=== PATIENT | female | born 1955 | race Caucasian/White ===

== ENCOUNTER → 2023-06-08 | Outpatient (REF) | payer MEDICARE, SELFPAY ==
[2023-06-08 09:13] LABS: Absolute Lymphocyte Count 2.61 X10^3/uL (0.83-4.51); Absolute Neutrophil Count 2.3 X10^3/uL (2.0-7.7); Basophil# 0.09 X10^3/uL; Basophil% 1.5 % (0-1); Eosinophil# 0.24 X10^3/uL; Hematocrit 30.8 % (37-47); Hemoglobin 9.2 g/dL (12.0-15.0); Lymphocyte # 2.61 X10^3/ul (0.83-4.51); Lymphocyte % 43.8 % (19-41); Mean Corp Hgb Conc 29.9 g/dL (32-36); Mean Corpuscular Hgb 26.6 pg (27.0-32.0); Monocyte# 0.74 X10^3/uL; Monocyte% 12.4 % (0-10); NRBC Flagged by Analyzer 0 % (0-5); Neutrophil # 2.25 X10^3/uL (2.7-7.7); Neutrophil % 37.8 % (47-70); Platelet Count 461 K/mm3 (150-450); RBC Distribution Width CV 18.2 % (11.6-14.6); RBC Distribution Width SD 59.3 fl (35.1-43.9); Red Blood Count 3.46 M/mm3 (4.2-5.4)
[2023-06-08 09:37] LABS: ALB/GLOB Ratio 0.8 RATIO (0.9-2.4); AST(SGOT) 39 U/L (15-37); Alanine Aminotransfer ALT/SGPT 22 U/L (13-56); Albumin, Serum 2.7 g/dL (3.2-5.0); Alkaline Phosphatase 121 U/L (45-117); Anion Gap 5 (5-15); BUN 21 mg/dL (7-18); BUN/Creat Ratio 29.4 RATIO (10-20); Calcium,Total 8.4 mg/dL (8.5-10.1); Chloride 114 mmol/L (98-107); Creatinine, Serum 0.72 mg/dL (0.55-1.02); EST Glomerular Filtration Rate 86 mL/min (>60); Est Glom Filt Rate - Afr Amer 104 mL/min (>60); Globulin 3.4 g/dL (2.2-4.2); Glucose 89 mg/dL (74-106); Potassium 3.1 mmol/L (3.5-5.1); Protein, Total 6.1 g/dL (6.4-8.2); Sodium Level 143 mmol/L (136-145)
== END ==
LOC: OLS.SANC 05:50
PROVIDERS: Visit Provider Internal Medicine
DX: D64.9 Anemia, unspecified (principal); I10 Essential (primary) hypertension; Z79.899 Other long term (current) drug therapy
CPT/HCPCS: 36415; 80053; 85025

== ENCOUNTER → 2023-06-10 | Outpatient (REF) | payer MEDICARE, SELFPAY ==
[2023-06-10 08:24] LABS: Anion Gap 4 (5-15); BUN 21 mg/dL (7-18); BUN/Creat Ratio 28.4 RATIO (10-20); Calcium,Total 8.4 mg/dL (8.5-10.1); Chloride 115 mmol/L (98-107); Creatinine, Serum 0.74 mg/dL (0.55-1.02); EST Glomerular Filtration Rate 83 mL/min (>60); Est Glom Filt Rate - Afr Amer 100 mL/min (>60); Glucose 93 mg/dL (74-106); Potassium 3.8 mmol/L (3.5-5.1); Sodium Level 143 mmol/L (136-145)
== END ==
LOC: OLS.SANC 05:00
PROVIDERS: Visit Provider Internal Medicine
DX: J44.9 Chronic obstructive pulmonary disease, unspecified (principal); I10 Essential (primary) hypertension
CPT/HCPCS: 36415; 80048

== ENCOUNTER → 2023-06-15 | Outpatient (REF) | payer MEDICARE, SELFPAY ==
[2023-06-15 10:11] LABS: Absolute Lymphocyte Count 2.72 X10^3/uL (0.83-4.51); Absolute Neutrophil Count 2.8 X10^3/uL (2.0-7.7); Basophil# 0.07 X10^3/uL; Basophil% 1.1 % (0-1); Eosinophil# 0.23 X10^3/uL; Eosinophils% 3.6 % (0-5); Hematocrit 32.9 % (37-47); Hemoglobin 9.9 g/dL (12.0-15.0); Lymphocyte # 2.72 X10^3/ul (0.83-4.51); Lymphocyte % 43.1 % (19-41); Mean Corp Hgb Conc 30.1 g/dL (32-36); Mean Corpuscular Hgb 27.2 pg (27.0-32.0); Mean Corpuscular Volume 90.4 fL (81-99); Mean Platelet Vol. 10.6 fl (6.2-12.0); Monocyte% 7.9 % (0-10); NRBC Flagged by Analyzer 0 % (0-5); Neutrophil # 2.76 X10^3/uL (2.7-7.7); Neutrophil % 43.8 % (47-70); Platelet Count 356 K/mm3 (150-450); RBC Distribution Width CV 17.7 % (11.6-14.6); RBC Distribution Width SD 59.4 fl (35.1-43.9); Red Blood Count 3.64 M/mm3 (4.2-5.4); White Blood Count 6.3 K/mm3 (4.4-11.0)
[2023-06-15 10:24] LABS: ALB/GLOB Ratio 0.9 RATIO (0.9-2.4); AST(SGOT) 33 U/L (15-37); Alanine Aminotransfer ALT/SGPT 32 U/L (13-56); Albumin, Serum 2.9 g/dL (3.2-5.0); Alkaline Phosphatase 133 U/L (45-117); Anion Gap 7 (5-15); BUN 15 mg/dL (7-18); BUN/Creat Ratio 20.3 RATIO (10-20); Calcium,Total 8.6 mg/dL (8.5-10.1); Chloride 112 mmol/L (98-107); Creatinine, Serum 0.74 mg/dL (0.55-1.02); EST Glomerular Filtration Rate 83 mL/min (>60); Est Glom Filt Rate - Afr Amer 100 mL/min (>60); Globulin 3.3 g/dL (2.2-4.2); Glucose 75 mg/dL (74-106); Potassium 3.5 mmol/L (3.5-5.1); Protein, Total 6.2 g/dL (6.4-8.2); Sodium Level 144 mmol/L (136-145)
== END ==
LOC: OLS.SANC 04:00
PROVIDERS: Referring Provider Internal Medicine; Visit Provider Internal Medicine
DX: D64.9 Anemia, unspecified (principal); J44.9 Chronic obstructive pulmonary disease, unspecified; I10 Essential (primary) hypertension; Z47.1 Aftercare following joint replacement surgery
CPT/HCPCS: 36415; 80053; 85025

== ENCOUNTER → 2023-06-17 | Outpatient (REF) | payer MEDICARE, SELFPAY ==
[2023-06-17 08:20] LABS: Hematocrit 30.5 % (37-47); Hemoglobin 9.3 g/dL (12.0-15.0); Mean Corp Hgb Conc 30.5 g/dL (32-36); Mean Corpuscular Hgb 27.3 pg (27.0-32.0); Mean Corpuscular Volume 89.4 fL (81-99); Mean Platelet Vol. 10.4 fl (6.2-12.0); Platelet Count 284 K/mm3 (150-450); RBC Distribution Width CV 17.4 % (11.6-14.6); Red Blood Count 3.41 M/mm3 (4.2-5.4); White Blood Count 4.8 K/mm3 (4.4-11.0)
[2023-06-17 08:24] LABS: Anion Gap 6 (5-15); BUN 24 mg/dL (7-18); BUN/Creat Ratio 30.1 RATIO (10-20); Calcium,Total 8.1 mg/dL (8.5-10.1); Chloride 114 mmol/L (98-107); EST Glomerular Filtration Rate 76 mL/min (>60); Est Glom Filt Rate - Afr Amer 92 mL/min (>60); Glucose 84 mg/dL (74-106); Potassium 3.5 mmol/L (3.5-5.1); Sodium Level 142 mmol/L (136-145)
== END ==
LOC: OLS.SANC 05:00
PROVIDERS: Visit Provider Internal Medicine
DX: D64.9 Anemia, unspecified (principal); J44.9 Chronic obstructive pulmonary disease, unspecified; I10 Essential (primary) hypertension
CPT/HCPCS: 36415; 80048; 85027

== ENCOUNTER → 2023-06-22 | Outpatient (REF) | payer MEDICARE, SELFPAY ==
[2023-06-22 09:43] LABS: Absolute Lymphocyte Count 2.61 X10^3/uL (0.83-4.51); Absolute Neutrophil Count 2.5 X10^3/uL (2.0-7.7); Basophil# 0.05 X10^3/uL; Basophil% 0.9 % (0-1); Eosinophil# 0.14 X10^3/uL; Eosinophils% 2.5 % (0-5); Hematocrit 32.8 % (37-47); Hemoglobin 9.7 g/dL (12.0-15.0); Lymphocyte # 2.61 X10^3/ul (0.83-4.51); Lymphocyte % 46.1 % (19-41); Mean Corp Hgb Conc 29.6 g/dL (32-36); Mean Corpuscular Volume 91.4 fL (81-99); Mean Platelet Vol. 10.9 fl (6.2-12.0); Monocyte# 0.39 X10^3/uL; Monocyte% 6.9 % (0-10); NRBC Flagged by Analyzer 0 % (0-5); Neutrophil # 2.46 X10^3/uL (2.7-7.7); Neutrophil % 43.4 % (47-70); Platelet Count 298 K/mm3 (150-450); RBC Distribution Width CV 17.4 % (11.6-14.6); RBC Distribution Width SD 58.4 fl (35.1-43.9); Red Blood Count 3.59 M/mm3 (4.2-5.4); White Blood Count 5.7 K/mm3 (4.4-11.0)
[2023-06-22 10:40] LABS: ALB/GLOB Ratio 0.8 RATIO (0.9-2.4); AST(SGOT) 23 U/L (15-37); Alanine Aminotransfer ALT/SGPT 21 U/L (13-56); Albumin, Serum 2.8 g/dL (3.2-5.0); Alkaline Phosphatase 126 U/L (45-117); Anion Gap 7 (5-15); BUN 19 mg/dL (7-18); Calcium,Total 8.1 mg/dL (8.5-10.1); Chloride 113 mmol/L (98-107); EST Glomerular Filtration Rate 66 mL/min (>60); Est Glom Filt Rate - Afr Amer 80 mL/min (>60); Globulin 3.3 g/dL (2.2-4.2); Glucose 165 mg/dL (74-106); Potassium 4.2 mmol/L (3.5-5.1); Protein, Total 6.1 g/dL (6.4-8.2); Sodium Level 141 mmol/L (136-145); Total Bilirubin < 0.10 mg/dL (0.20-1.00)
== END ==
LOC: OLS.SANC 05:00
PROVIDERS: Visit Provider Internal Medicine
DX: D64.9 Anemia, unspecified (principal); J44.9 Chronic obstructive pulmonary disease, unspecified; I10 Essential (primary) hypertension
CPT/HCPCS: 36415; 80053; 85025

== ENCOUNTER 2023-12-06 03:11 | Emergency (ER) | payer MEDICARE, SELFPAY ==
[2023-12-06 03:12] VITALS: BP 121/79; PULSE 93; RESP 20; TEMP 36.4; O2SAT 99; BMI 42.5
[2023-12-06 03:20] VITALS: TEMP 36.6; O2SAT 99
[2023-12-06] MEDS: Ondansetron 4 MG/2 ML Vial IV (03:50)
[2023-12-06] MEDS: fentaNYL 100 MCG/2 ML Ampul 50 MCG IV (03:50)
[2023-12-06] MEDS: LORazepam 2 MG/ML Syringe 0.5 MG IV (03:50)
--- NOTE | 2023-12-06 04:05 | RAD_ITS ---
INDICATION: pain EXAMINATION/TECHNIQUE: X-RAY - LEFT XR Humerus 1 View 1 VIEWS COMPARISON: Shoulder radiograph on same day FINDINGS: SOFT TISSUES: Lateral upper shoulder soft tissue edema or hematoma. No radiopaque foreign body. BONES/JOINTS: Comminuted proximal humeral metadiaphyseal fracture with cephalad and lateral displacement of distal fracture fragment. No distal humeral fracture. No aggressive osseous lesion. Linear lucency partially extends through the scapula, better seen on shoulder radiograph. RAD/Humerus min 2 Views IMPRESSION: Comminuted displaced proximal humeral metadiaphyseal fracture.. Electronically Signed: Ramana Diamond MD at 4:49 EDT ,
--- NOTE | 2023-12-06 04:05 | RAD_ITS ---
INDICATION: pain EXAMINATION/TECHNIQUE: X-RAY - LEFT XR Shoulder 1 View 1 VIEWS COMPARISON: Humerus radiograph on same day FINDINGS: SOFT TISSUES: Diffuse lateral shoulder edema.. No radiopaque foreign body. BONES/JOINTS: Comminuted proximal humeral metaphyseal fracture just inferior to the head neck junction with lateral and superior displacement of the distal humeral fracture fragment. Oblique linear lucency extends partially through the scapula of uncertain significance, paralleling the inferior margin... Humeral head remains aligned with the glenoid. Normal acromioclavicular alignment. No aggressive osseous lesion. RAD/Shoulder min 2 Views IMPRESSION: Comminuted displaced proximal humeral metadiaphyseal fracture. Left scapular lucency favored to represent undulation of bone however would consider CT to exclude scapular fracture. Electronically Signed: Ramana Diamond MD at 4:43 EDT ,
[2023-12-06] MEDS: HYDROmorphone 1 MG/ML Syringe IV (04:27)
--- NOTE | 2023-12-06 04:34 | EX.ED.DYSGE1 ---
HPI History of Present Illness Chief Complaint: Fall Informant: patient, family and EMS Narrative Narrative: Patient is a 68-year-old female with past medical history of fibromyalgia bipolar disorder lymphedema and previous breast cancer. She states that she has a difficult time sleeping and as she could not sleep decided to get up and start putting things away in her bedroom. She states that she has balance issues and simply lost her balance and fell landing on her left side. She denies striking her head or any loss of consciousness. However when she landed she had severe pain in her left upper arm/shoulder. She was able to call out and family members came to her side and confirms she was awake and alert however they had difficulty getting her up secondary to her severe pain and therefore EMS was called. Patient reports pain in her left shoulder/upper arm at this time but otherwise denies any pain or areas of injury with the fall. She also denies any history of blood thinner use or bleeding disorder [facility] Medical History (Updated 12/06/23 @ 22:[address] Harrison Whitehead, DO) Lupus Fibromyalgia ADHD Anxiety Bipolar 1 disorder Hx of breast cancer Lymphedema of right arm Home Medications ?Medication ?Instructions ?Recorded ?Last Taken ?Type bupropion HCl 150 mg tablet,12 hr 450 mg PO DAILY 12/06/23 Unknown History sustained-release carvedilol 6.25 mg tablet 6.25 mg PO BID 12/06/23 Unknown History cephalexin 500 mg capsule 1,000 mg PO DAILY 12/06/23 Unknown History clonazepam 2 mg tablet 2 mg PO TID PRN PRN sleep 12/06/23 Unknown History ferrous sulfate 325 mg (65 mg 325 mg PO QODAY 12/06/23 Unknown History iron) tablet (Feosol) loratadine 10 mg tablet (Claritin) 10 mg PO DAILY 12/06/23 Unknown History mirtazapine 30 mg disintegrating 30 mg PO QHS 12/06/23 Unknown History tablet oxycodone-acetaminophen 10 mg-325 1 tab PO Q6H PRN pain 5 days #20 12/06/23 Unknown Rx mg tablet (Percocet) tabs pramipexole 0.25 mg tablet 0.25 mg PO BID 12/06/23 Unknown History quetiapine 50 mg tablet,extended 50 mg PO DAILY 12/06/23 Unknown History release 24 hr tizanidine 4 mg capsule (Zanaflex) 4 mg PO TID PRN muscle pain/spasm 12/06/23 Unknown Rx #30 caps tizanidine 4 mg tablet 4 mg PO Q8H PRN 12/06/23 Unknown History venlafaxine 150 mg 300 mg PO DAILY 12/06/23 Unknown History capsule,extended release 24 hr Allergy/AdvReac Type Severity Reaction Status Date / Time budesonide (From Pulmicort) Allergy Anaphylaxis Verified 12/06/23 03:48 Penicillins Allergy Hives Verified 12/06/23 03:48 Sulfa (Sulfonamide Allergy Rash Verified 12/06/23 03:48 Antibiotics) Surgical History (Updated 12/06/23 @ 03:23 by Leslie Arvizu) History of tonsillectomy Hx of cholecystectomy Social History Smoking Status: Never smoker ROS ROS ED Constitutional Constitutional ED: Denies chills or fever(s) Eyes Eyes: Denies blurry vision or change in vision ENT ENT ED: Denies sore throat Cardiovascular Cardiovascular: Reports other Details: Negative syncope ; Denies chest pain Respiratory/Chest Respiratory/Chest: Denies cough or dyspnea Gastrointestinal Gastrointestinal: Denies abdominal pain, diarrhea, nausea or vomiting Genitourinary Genitourinary ED: Denies dysuria Musculoskeletal Musculoskeletal: Reports other Details: Positive left arm/shoulder pain ; Denies back pain or neck pain Integumentary Denies rash Neurologic Neurologic: Denies headache(s) or paresthesias Psychiatric Psychiatric: Reports anxiety Hematologic/Lymphatic Hematologic/Lymphatic: Denies easy bleeding or easy bruising EXAM Physical Exam Const Vital Signs: 12/06/23 03:12 12/06/23 03:20 12/06/23 04:41 Temperature 97.5 F L 97.8 F 97.9 F Temperature Source Oral Pulse Rate 93 91 Respiratory Rate 20 H 18 Respiratory Effort Short of Breath Labored Respiratory Depth Normal Respiratory Pattern Normal Blood Pressure 121/79 H 126/98 H Blood Pressure Mean 93 107 Pulse Ox 99 99 94 Oxygen Delivery Method Room Air Room Air 12/06/23 05:12 Temperature Temperature Source Pulse Rate 102 H Respiratory Rate 18 Respiratory Effort Respiratory Depth Respiratory Pattern Blood Pressure 129/87 H Blood Pressure Mean 101 Pulse Ox 94 Oxygen Delivery Method Room Air Positive well nourished and well developed General Appearance ED: well developed HEENT HEENT Narrative: Normocephalic atraumatic No signs of depressed or basilar skull fracture Eyes PERRL and EOMs intact bilaterally Neck supple Neck Narrative: No bony deformity or step-off of the cervical spine no midline tenderness to palpation Chest Wall palpation of chest normal Chest Narrative: No bony deformity or crepitance of the chest wall no reproducible chest wall pain with palpation Resp normal respiratory effort and clear to auscultation bilaterally Cardio regular rate and regular rhythm GI normal to inspection, nondistended, normoactive bowel sounds, non-tender, non-distended and no masses Auscultation: normoactive bowel sounds Palpation: soft Back/Spine Back/Spine Narrative: No bony deformity or step-off of the thoracic or lumbar spine no midline tenderness to palpation Extremity Extremity Narrative: Left upper extremity is neurovascularly intact. However there is apparent deformity of the left shoulder/proximal humerus concerning for displaced fracture without sulcus sign to suggest dislocation The pelvis is stable there is no shortening or external rotation either lower extremity Patient has chronic lymphedema; compartments are soft and compressible however going against compartment syndrome Neuro oriented x3, CN's II-XII intact bilaterally and no sensory deficits noted Sensorium / Orientation: alert Psych Mood & Affect: anxious Skin no rashes or lesions noted Skin Narrative: No abrasions or ecchymosis or signs of skin laceration MDM MDM MDM Narrative Medical decision making narrative: Patient presented to the ER with stable vitals and reported a mechanical fall so I felt no need for cardiac or syncope workup. She is not on blood thinners nor does she have a history of bleeding disorder so there is no need for head CT. Physical exam was consistent with potential fracture versus dislocation so an x-ray of the left shoulder/arm was ordered. X-ray confirmed a displaced fracture of the proximal humerus. However the patient is closed and neurovascularly intact and therefore there is no need for emergent orthopedic evaluation. She also does not have any signs of compartment syndrome. I did discuss the case with the orthopedic on-call Dr. Crowley in order to ensure the best care for the patient. He was able to review the x-rays and agrees that as the patient is closed and neurovascularly intact there is no need for any type of emergent procedure and that it is acceptable to place her in a sling for stabilization and allow gravity to lengthen the fracture fragment. This plan of care was discussed with the patient and family and they are agreeable to it. Secondary to the severe fracture I will place her on oxycodone as well as Zanaflex to help with pain control and she states she will follow-up with her orthopedic surgeon to discuss any further testing or treatment options regarding her fracture. However at this time she is closed and neurovascular intact without compartment syndrome and had a mechanical fall and not a syncopal event and therefore is otherwise safe for discharge History & Record Review Discussion w/independent historian: EMS personnel, Patient and Family Radiography Diagnostic Testing: Clinical Impression(s) from Imaging Studies Humerus X-Ray 12/06/23 04:05 IMPRESSION: Comminuted displaced proximal humeral metadiaphyseal fracture.. Electronically Signed: Ramana Diamond MD at 4:49 EDT , Shoulder X-Ray 12/06/23 04:05 IMPRESSION: Comminuted displaced proximal humeral metadiaphyseal fracture. Left scapular lucency favored to represent undulation of bone however would consider CT to exclude scapular fracture. Electronically Signed: Ramana Diamond MD at 4:43 EDT , X-ray of the left shoulder and left humerus as interpreted by the emergency medicine physician reveals a comminuted 100% displaced proximal third humeral fracture Discharge Plan Triage Chief Complaint: Fall ED Provider: Harrison Whitehead Dx/Rx/DC Orders Clinical Impression: Closed comminuted fracture of left humerus, Bipolar disorder, Fibromyalgia, Accidental fall, History of breast cancer Instructions: ED Fracture, Upper Extremity Prescriptions: New tizanidine [Zanaflex] 4 mg capsule 4 mg PO TID PRN (Reason: muscle pain/spasm) Qty: 30 0RF oxycodone-acetaminophen [Percocet] 10-325 mg tablet 1 tab PO Q6H PRN (Reason: pain) 5 Days Qty: 20 0RF No Action bupropion HCl 150 mg tablet sustained-release 12 hr 450 mg PO DAILY carvedilol 6.25 mg tablet 6.25 mg PO BID venlafaxine 150 mg capsule,extended release 24hr 300 mg PO DAILY ferrous sulfate [Feosol] 325 mg (65 mg iron) tablet 325 mg PO QODAY quetiapine 50 mg tablet extended release 24 hr 50 mg PO DAILY tizanidine 4 mg tablet 4 mg PO Q8H PRN loratadine [Claritin] 10 mg tablet 10 mg PO DAILY cephalexin 500 mg capsule 1,000 mg PO DAILY pramipexole 0.25 mg tablet 0.25 mg PO BID mirtazapine 30 mg tablet,disintegrating 30 mg PO QHS clonazepam 2 mg tablet 2 mg PO TID PRN PRN (Reason: sleep) Primary Care Provider: Cass Daniels Referrals: PAMELA CORBETT MD [Non-Staff] - Cass Daniels DO [Primary Care Provider] - Activity Restrictions/Additional Instructions: Please wear your sling for stabilization of your fracture and try to sleep in more of an upright position to allow the fracture fragments to extend to normal length. Follow-up with your orthopedic surgeon for further evaluation and return to the ER should you have any further concerns Print Language: Syriac Disposition Disposition: Home, Self Care Discharge Date/Time: 12/06/23 05:27
[2023-12-06 04:41] VITALS: BP 126/98; PULSE 91; RESP 18; TEMP 36.6; O2SAT 94
[2023-12-06] MEDS: Orphenadrine 100 MG Tablet PO (04:43)
[2023-12-06 05:12] VITALS: BP 129/87; PULSE 102; RESP 18; O2SAT 94
[2023-12-06] MEDS: oxyCODONE 5 MG Tablet 10 MG PO (05:17)
--- NOTE | 2023-12-06 05:22 | ED.RN ---
Pt. refused [facility] sling, insisting that her personal sling was better and she did not want to try and put a sling on twice. Pt. waited for friends to bring in the sling in order to have that sling put on. This RN assisted with putting on the patient's personal sling. notified.
== END 2023-12-06 05:27 | disposition home or self-care (01) ==
PROVIDERS: Emergency Provider Emergency Medicine; PCP Family Medicine; Visit Provider Emergency Medicine
DX: S42.352A Displaced comminuted fracture of shaft of humerus, left arm, initial encounter for closed fracture (principal); F31.9 Bipolar disorder, unspecified; W18.39XA Other fall on same level, initial encounter; Y93.89 Activity, other specified; Y99.8 Other external cause status; Y92.003 Bedroom of unspecified non-institutional (private) residence as the place of occurrence of the external cause; M79.7 Fibromyalgia; Z79.899 Other long term (current) drug therapy; Z85.3 Personal history of malignant neoplasm of breast
CPT/HCPCS: 73030; 73060; 96374; 96375; 99284; A4216; J2405

== ENCOUNTER 2024-03-01 05:06 | Inpatient (IN) | payer MEDICARE, SELFPAY ==
[2024-03-01] VITALS (34 sets, daily range): BP systolic 66–104; BP diastolic 32–86; PULSE 75–986; RESP 17–26; TEMP 35.8–36.6; O2SAT 91–100; BMI 38.0; BMI 43.2
--- NOTE | 2024-03-01 05:24 | EKG12_ITS ---
Test Reason : DYSRHYTHMIA Blood Pressure : */* mmHG Vent. Rate : 87 BPM Atrial Rate : 87 BPM P-R Int : 168 ms QRS Dur : 122 ms QT Int : 398 ms P-R-T Axes : 35 -40 82 degrees QTcB Int : 478 ms Normal sinus rhythm Left axis deviation Left ventricular hypertrophy with QRS widening ( R in aVL , Parsons product , Romhilt-Travis ) T wave abnormality, consider lateral ischemia Abnormal ECG Confirmed by LINDA NAPIER, SAMUEL ([id number]), department editor JONATHAN DAVIDSON ([id number]) on 03/03/2024 2:14:57 PM Referred By: Confirmed By: SAMUEL MCKEON MD
--- NOTE | 2024-03-01 05:32 | EX.ED.DYSGE1 ---
HPI History of Present Illness Chief Complaint: Constipation Narrative Narrative: Patient is a 68-year-old female with past medical history of bipolar disorder, anxiety, ADHD, lymphedema in the right arm who presents to the emergency department chief complaint of abdominal pain, constipation and not feeling well in general. Per EMS family called stating that she had been constipated for few days. Patient was unable to answer many questions for EMS according to them. Patient here in the emergency department states I cannot do this hospital stuff anymore. She states that she has not had a bowel movement a few days. [facility] Medical History Lupus Fibromyalgia ADHD Anxiety Bipolar 1 disorder Hx of breast cancer Lymphedema of right arm Home Medications ?Medication ?Instructions ?Recorded ?Last Taken ?Type bupropion HCl 150 mg tablet,12 hr 450 mg PO DAILY 12/06/23 Unknown History sustained-release carvedilol 6.25 mg tablet 6.25 mg PO BID 12/06/23 Unknown History cephalexin 500 mg capsule 1,000 mg PO DAILY 12/06/23 Unknown History clonazepam 2 mg tablet 2 mg PO TID PRN PRN sleep 12/06/23 Unknown History ferrous sulfate 325 mg (65 mg 325 mg PO QODAY 12/06/23 Unknown History iron) tablet (Feosol) loratadine 10 mg tablet (Claritin) 10 mg PO DAILY 12/06/23 Unknown History mirtazapine 30 mg disintegrating 30 mg PO QHS 12/06/23 Unknown History tablet oxycodone-acetaminophen 10 mg-325 1 tab PO Q6H PRN pain 5 days #20 12/06/23 Unknown Rx mg tablet (Percocet) tabs pramipexole 0.25 mg tablet 0.25 mg PO BID 12/06/23 Unknown History quetiapine 50 mg tablet,extended 50 mg PO DAILY 12/06/23 Unknown History release 24 hr tizanidine 4 mg capsule (Zanaflex) 4 mg PO TID PRN muscle pain/spasm 12/06/23 Unknown Rx #30 caps tizanidine 4 mg tablet 4 mg PO Q8H PRN 12/06/23 Unknown History venlafaxine 150 mg 300 mg PO DAILY 12/06/23 Unknown History capsule,extended release 24 hr Allergy/AdvReac Type Severity Reaction Status Date / Time budesonide (From Pulmicort) Allergy Anaphylaxis Verified 03/01/24 05:11 Penicillins Allergy Hives Verified 03/01/24 05:11 Sulfa (Sulfonamide Allergy Rash Verified 03/01/24 05:11 Antibiotics) Family History unable to obtain Surgical History History of tonsillectomy Hx of cholecystectomy Social History Smoking Status: Never smoker ROS ROS ED ROS Narrative Constitutional: Denies headaches, fevers, chills Cardiovascular: Denies chest pain or palpitations Respiratory: Denies coughing wheezing shortness of breath Abdomen: Complains of abdominal pain, constipation as noted above : Denies any urinary symptoms Neurological: Denies any numbness, weakness, tingling Musculoskeletal: Denies back pain Skin: Denies rashes or lesions EXAM Physical Exam Narrative Exam Narrative: General: Patient lying in bed rest comfortably did not appear to be in acute distress Head: Atraumatic, normocephalic Eyes ears, nose, throat: Mucous membranes dry, PERRL bilaterally, EOMI bilaterally, no conjunctival injection noted Neck: Soft, supple, trachea midline Cardiovascular: Regular rate and rhythm Respiratory: Clear to auscultation bilaterally Abdomen: Soft, nondistended, diffuse tenderness to palpation, Extremities: +4/5 strength noted in the bilateral upper and lower extremities Neurological: Patient knew that she was at the hospital year is 2023 and we are in winter Skin: Warm, dry, intact Const Vital Signs: 03/01/24 05:11 03/01/24 05:20 03/01/24 05:44 Temperature 96.5 F L Temperature Source Axillary Pulse Rate 91 Respiratory Rate 20 H Blood Pressure 100/86 H 70/60 L Blood Pressure Mean 90 63 Pulse Ox 96 Oxygen Delivery Method Room Air Oxygen Flow Rate (L/min) 03/01/24 07:09 03/01/24 07:50 03/01/24 08:14 Temperature Temperature Source Pulse Rate 82 78 Respiratory Rate 20 H 20 H Blood Pressure 66/32 L 81/47 L Blood Pressure Mean 43 58 Pulse Ox 92 93 91 Oxygen Delivery Method Room Air Nasal Cannula Nasal Cannula Oxygen Flow Rate (L/min) 3 MDM MDM MDM Narrative Medical decision making narrative: Patient is a 68-year-old female who presented to the emergency department with a chief complaint of generalized not feeling well, abdominal pain constipation. Patient will have a workup performed here on the differential diagnose includes but not limited to bowel obstruction, constipation, dehydration, UTI. Once workup is obtained reviewed she will be reevaluated. Patient be given IV fluids. Patient's CBC was reviewed and was significant for leukocytosis of 36,000, hemoglobin was noted to be 4.3, platelet count normal at 359. Patient does have a normal MCV of 97.1. Patient sodium normal 138, potassium normal 3.9, creatinine was elevated 2.21 indicating acute kidney injury as her baseline is roughly around 0.75-0.9. Patient's BUN was elevated to 136 as well, AST and ALT were 55 and 61 respectively. Patient's lipase normal at 61. At this point time there is no identifiable source of infection however given her leukocytosis will give her antibiotic she does have hives to penicillins therefore she will be given Cipro and Flagyl. Patient was ordered a total of 2 L of IV fluid and type and screen for 3 units of packed red blood cells. Patient will be given 40 mg of IV Protonix followed by a Protonix drip. Patient's case will be discussed with talent program manager Dr. Toledo. Patient's Hemoccult was positive. Patient Dr. Toledo to discuss with him about her upper GI bleed. Patient's blood pressure is continuing to improve while obtaining IV fluids and blood products are pending suspect as more fluid and packed red blood cells are administered her blood pressure will continue to improve. At 8:17 AM I have no identifiable source infection. Patient's case was signed out to oncoming provider to follow-up on CT result, discussed with hospitalist and Dr. Toledo. See their note for further details and disposition. Lab Data Labs: Laboratory Results - last 24 hr 03/01/24 03/01/24 06:35 07:13 WBC 36.0 H* RBC 1.39 L Hgb 4.3 L* Hct 13.5 L MCV 97.1 MCH 30.9 MCHC 31.9 L RDW Std Deviation 47.7 H RDW Coeff of Dano 14.8 H Plt Count 359 MPV 11.1 Immature Gran % (Auto) 1.900 H Neut % (Auto) 90.9 H Lymph % (Auto) 3.4 L Morton % (Auto) 3.7 Eos % (Auto) 0.0 Baso % (Auto) 0.1 Absolute Neuts (auto) 32.7 H Absolute Lymphs (auto) 1.21 Nucleated RBC % 0.6 Differential Comment COMMENT Diff Path Review May foll PT Cancelled INR Cancelled APTT Cancelled Sodium 138 Potassium 3.9 Chloride 110 H Carbon Dioxide 15.0 L Anion Gap 14 BUN 136 H* Creatinine 2.21 H Estim Creat Clear Calc 22.47 Est GFR (MDRD) Af Amer 28 L Est GFR (MDRD) Non-Af 23 L BUN/Creatinine Ratio 61.5 H Glucose 258 H Calcium 8.1 L Total Bilirubin 0.20 AST 55 H ALT 61 H Alkaline Phosphatase 145 H Total Protein 4.9 L Albumin 2.3 L Globulin 2.6 Albumin/Globulin Ratio 0.9 Lipase 61 Blood Type O POSITIVE Antibody Screen NEGATIVE Crossmatch See Detail Discharge Plan Triage Chief Complaint: Constipation ED Provider: Richard Rodrigez Dx/Rx/DC Orders Clinical Impression: Acute upper GI bleed, Constipation Prescriptions: No Action bupropion HCl 150 mg tablet sustained-release 12 hr 450 mg PO DAILY carvedilol 6.25 mg tablet 6.25 mg PO BID venlafaxine 150 mg capsule,extended release 24hr 300 mg PO DAILY ferrous sulfate [Feosol] 325 mg (65 mg iron) tablet 325 mg PO QODAY quetiapine 50 mg tablet extended release 24 hr 50 mg PO DAILY tizanidine 4 mg tablet 4 mg PO Q8H PRN loratadine [Claritin] 10 mg tablet 10 mg PO DAILY cephalexin 500 mg capsule 1,000 mg PO DAILY pramipexole 0.25 mg tablet 0.25 mg PO BID mirtazapine 30 mg tablet,disintegrating 30 mg PO QHS clonazepam 2 mg tablet 2 mg PO TID PRN PRN (Reason: sleep) tizanidine [Zanaflex] 4 mg capsule 4 mg PO TID PRN (Reason: muscle pain/spasm) Qty: 30 0RF oxycodone-acetaminophen [Percocet] 10-325 mg tablet 1 tab PO Q6H PRN (Reason: pain) 5 Days Qty: 20 0RF Primary Care Provider: Cass Daniels Referrals: Cass Daniels, [Primary Care Provider] - Print Language: [place] Rican
[2024-03-01 06:42] LABS: Absolute Lymphocyte Count 1.21 X10^3/uL (0.83-4.51); Absolute Neutrophil Count 32.7 X10^3/uL (2.0-7.7); Basophil# 0.04 X10^3/uL; Basophil% 0.1 % (0-1); Eosinophil# 0.01 X10^3/uL; Hematocrit 13.5 % (37-47); Lymphocyte # 1.21 X10^3/ul (0.83-4.51); Lymphocyte % 3.4 % (19-41); Mean Corp Hgb Conc 31.9 g/dL (32-36); Mean Corpuscular Hgb 30.9 pg (27.0-32.0); Mean Corpuscular Volume 97.1 fL (81-99); Mean Platelet Vol. 11.1 fl (6.2-12.0); Monocyte# 1.34 X10^3/uL; Monocyte% 3.7 % (0-10); NRBC Flagged by Analyzer 0.6 % (0-5); Neutrophil # 32.69 X10^3/uL (2.7-7.7); Neutrophil % 90.9 % (47-70); POSITIVE COUNT YES; POSITIVE DIFFERENTIAL YES; POSITIVE MORPHOLOGY YES; Platelet Count 359 K/mm3 (150-450); RBC Distribution Width CV 14.8 % (11.6-14.6); RBC Distribution Width SD 47.7 fl (35.1-43.9); Red Blood Count 1.39 M/mm3 (4.2-5.4)
[2024-03-01] MEDS: 0.9% Normal Saline (1000mL) 1,000 ML 999 ML IV ×2 (06:48→08:10)
[2024-03-01 06:54] LABS: Differential Indicated SCAN CRITERIA MET; Hemoglobin 4.3 g/dL (12.0-15.0)
[2024-03-01 07:30] LABS: ALB/GLOB Ratio 0.9 RATIO (0.9-2.4); AST(SGOT) 55 U/L (15-37); Alanine Aminotransfer ALT/SGPT 61 U/L (13-56); Albumin, Serum 2.3 g/dL (3.2-5.0); Alkaline Phosphatase 145 U/L (45-117); Anion Gap 14 (5-15); BUN 136 mg/dL (7-18); BUN/Creat Ratio 61.5 RATIO (10-20); Calcium,Total 8.1 mg/dL (8.5-10.1); Chloride 110 mmol/L (98-107); Creatinine, Serum 2.21 mg/dL (0.55-1.02); EST Glomerular Filtration Rate 23 mL/min (>60); Est Glom Filt Rate - Afr Amer 28 mL/min (>60); Estimated Creatinine Clearance 22.47 ml/min; Globulin 2.6 g/dL (2.2-4.2); Glucose 258 mg/dL (74-106); Lipase 61 U/L (13-75); Potassium 3.9 mmol/L (3.5-5.1); Protein, Total 4.9 g/dL (6.4-8.2); Sodium Level 138 mmol/L (136-145)
--- NOTE | 2024-03-01 07:31 | CT_ITS ---
HISTORY: abd pain. TECHNIQUE: Helically acquired images were obtained of the abdomen and pelvis without oral or IV contrast. A radiation dose optimization technique was used for this scan. 483 images. COMPARISON: None. FINDINGS: Motion artifact lowers the sensitivity of the examination. LOWER CHEST: Lung bases clear. Left breast implant. Right breast postoperative change. BOWEL: Gastric bypass and patulous small bowel anastomosis. Overall small bowel and appendix nondilated. Moderate to large amount of stool throughout the colon. Distention of the rectum secondary to stool. PERITONEUM: No significant free fluid. LIVER: Unremarkable. GALLBLADDER/BILIARY TREE: Cholecystectomy. SPLEEN/PANCREAS/ADRENAL GLANDS: Nonenlarged. KIDNEYS AND URETERS: No nephrolithiasis or obstructing ureteral calculus. VESSELS: No abdominal aortic aneurysm. Mild atherosclerosis. PELVIC ORGANS: Absent uterus. BONES: Degenerative change. CT/Abdomen/Pelvis without Cont IMPRESSION: Moderate to large amount of stool throughout the colon, distending the rectum. Electronically Signed: Christelle Arenas MD at 8:27 EST ,
[2024-03-01] MEDS: Pantoprazole Sodium 80 MG in 0.9% Normal Saline (100mL Bag) 80 ML 10 MG CONT INF ×2 (08:10→18:38)
[2024-03-01] MEDS: metroNIDAZOLE 500 MG/100 ML BAG 100 MG IV ×3 (08:12→21:00)
[2024-03-01] MEDS: Pantoprazole Sodium 40 MG in 0.9% Normal Saline (100mL MB+) 100 ML 330 MG IV (08:13)
[2024-03-01 08:17] LABS: Lactic Acid 5.5 mmol/L (0.4-1.9)
--- NOTE | 2024-03-01 08:50 | PCM.HP.STD ---
HPI - General General Date of Admission: 03/01/24 Date of Service: 03/01/24 Chief Complaint: Worsening constipation HPI Narrative The patient is a 68 y/o F w/ PMHx: Chronic anemia, Obesity, Chronic normocytic anemia, CKD stage II based on GFR trending, Anxiety and Depression/Bipolar disorder/ADHD, Fibromyalgia, History of Breast CA w/ chronic RUE lymphedema associated w/ LNDx/mastectomy w/ breast implant, Lupus who presents to the [facility] ED on 03/01/24 with history of ongoing persistent abdominal pain, constipation and general fatigue and malaise ongoing for at least the last 2 days prompting family to call EMS. In the ED patient with notably dark stool on guiac assessment. Workup in the ED included T96.5, heart rate 91, BP 100/86, respiratory rate 20, 96% on room air with transient BP decreased to 66/32 with most recent repeat vitals heart rate 78, BP 81/47, respiratory rate 20, and 1% on 3 L nasal cannula, CBC with WBC 36, hemoglobin 4.3, MCV 97.1, platelet 359 with significant left shift, CMP with chloride 110, At 15, BUN/creatinine 136/2.21, GFR 23, glucose 258, lactic acid 5.8, calcium 8.1, hepatic profile with T. bili 0.20, AST/LT 55/61, alk phos 145, lipase 61, CT abdomen and pelvis with moderate to large amount of stool throughout the colon distending the rectum, stool guaiac positive, blood culture x 2 pending per ED. in the ED patient administered Protonix bolus and started on drip, IV Flagyl and ciprofloxacin as well as 30 cc/kg IV fluid bolus for sepsis protocol. ED discussed case with Dr. [facility]. [facility] Medical History CKD (chronic kidney disease), stage II RLS (restless legs syndrome) Allergic rhinitis Anxiety and depression Iron deficiency Chronic anemia Lupus Fibromyalgia ADHD Bipolar 1 disorder Hx of breast cancer Lymphedema of right arm Home Medications ?Medication ?Instructions ?Recorded ?Last Taken ?Type bupropion HCl 150 mg tablet,12 hr 450 mg PO DAILY 12/06/23 Unknown History sustained-release carvedilol 6.25 mg tablet 6.25 mg PO BID 12/06/23 Unknown History cephalexin 500 mg capsule 1,000 mg PO DAILY 12/06/23 Unknown History clonazepam 2 mg tablet 2 mg PO TID PRN PRN sleep 12/06/23 Unknown History ferrous sulfate 325 mg (65 mg 325 mg PO QODAY 12/06/23 Unknown History iron) tablet (Feosol) loratadine 10 mg tablet (Claritin) 10 mg PO DAILY 12/06/23 Unknown History mirtazapine 30 mg disintegrating 30 mg PO QHS 12/06/23 Unknown History tablet oxycodone-acetaminophen 10 mg-325 1 tab PO Q6H PRN pain 5 days #20 12/06/23 Unknown Rx mg tablet (Percocet) tabs pramipexole 0.25 mg tablet 0.25 mg PO BID 12/06/23 Unknown History quetiapine 50 mg tablet,extended 50 mg PO DAILY 12/06/23 Unknown History release 24 hr tizanidine 4 mg capsule (Zanaflex) 4 mg PO TID PRN muscle pain/spasm 12/06/23 Unknown Rx #30 caps tizanidine 4 mg tablet 4 mg PO Q8H PRN 12/06/23 Unknown History venlafaxine 150 mg 300 mg PO DAILY 12/06/23 Unknown History capsule,extended release 24 hr Allergy/AdvReac Type Severity Reaction Status Date / Time budesonide (From Pulmicort) Allergy Anaphylaxis Verified 03/01/24 05:11 Penicillins Allergy Hives Verified 03/01/24 05:11 Sulfa (Sulfonamide Allergy Rash Verified 03/01/24 05:11 Antibiotics) Family History Mother Valvular heart disease Heart disease Father Alzheimer dementia Family History unable to obtain Surgical History S/P gastric bypass Status post total bilateral knee replacement S/P hysterectomy S/P shoulder surgery S/P cataract extraction History of tonsillectomy Hx of cholecystectomy Social History household members: other details: Reports living with a caregiver. Smoking Status: Never smoker alcohol intake: never substance use type: does not use ROS Review of Systems ROS Unobtainable: due to encephalopathy and due to mental condition Vital Signs Vital Signs Vital Signs: 03/01/24 05:11 03/01/24 05:20 03/01/24 05:44 Temperature 96.5 F L Temperature Source Axillary Pulse Rate 91 Respiratory Rate 20 H Blood Pressure 100/86 H 70/60 L Blood Pressure Mean 90 63 Pulse Ox 96 Oxygen Delivery Method Room Air Oxygen Flow Rate (L/min) 03/01/24 07:09 03/01/24 07:50 03/01/24 08:14 Temperature Temperature Source Pulse Rate 82 78 Respiratory Rate 20 H 20 H Blood Pressure 66/32 L 81/47 L Blood Pressure Mean 43 58 Pulse Ox 92 93 91 Oxygen Delivery Method Room Air Nasal Cannula Nasal Cannula Oxygen Flow Rate (L/min) 3 Weight Weight: 176 lb Body Mass Index (BMI) 38.0 Physical Exam Narrative Physical Examination: General: Awakens to stimuli, is intermittently alert, answering some questions but is having difficulty recalling information, appears encephalopathic versus chronic memory impairment but uncertain, laying in the ED bed in Trendelenburg, remains hypotensive, PRBC just being initiated. Skin: Normal color, normal turgor, no icterus, no cyanosis except for very stage ecchymoses, abrasions HEENT: AT/NC, EOMI, PERRLA, dry MM, false teeth in place at least upper, no carotid bruits or JVD noted. Lungs: Diminished, greater bases, mildly increased respiratory rate but no distress, no rales, ronchi or wheezing. Heart: Mildly tachycardic with regular rhythm; no gallop, rub audible. Abdomen: Soft, morbidly obese, generalized abdominal discomfort with palpation with voluntary guarding, distention evident, decreased bowel sounds, no HSM however difficult evaluation given pain elicited with palpation. Extremities: No cyanosis, clubbing, or edema. Neurological: Awakens to stimuli, is intermittently alert, answering some questions but is having difficulty recalling information, appears encephalopathic versus chronic memory impairment but uncertain, laying in the ED bed in Trendelenburg, remains hypotensive, PRBC just being initiated, cognitive function suspect decreased from baseline but baseline is unknown, pupils equally reactive to light and accommodation, cranial nerves grossly normal, moving all 4 extremities, no focal deficits, strength severely globally decreased. Psychiatric: Affect appears fatigued, uncomfortable, no acute evidence of depressive or anxiety feelings but does have chart reported previous history. Results Lab / Micro Data 03/01/24 06:35 03/01/24 06:35 Labs: Laboratory Results - last 24 hr 03/01/24 06:35: WBC 36.0 H*, RBC 1.39 L, Hgb 4.3 L*, Hct 13.5 L, MCV 97.1, MCH 30.9, MCHC 31.9 L, RDW Std Deviation 47.7 H, RDW Coeff of Dano 14.8 H, Plt Count 359, MPV 11.1, Immature Gran % (Auto) 1.900 H, Neut % (Auto) 90.9 H, Lymph % (Auto) 3.4 L, Hood % (Auto) 3.7, Eos % (Auto) 0.0, Baso % (Auto) 0.1, Absolute Neuts (auto) 32.7 H, Absolute Lymphs (auto) 1.21, Nucleated RBC % 0.6, Differential Comment COMMENT, Diff Path Review July foll, PT Cancelled, INR Cancelled, APTT Cancelled, Sodium 138, Potassium 3.9, Chloride 110 H, Carbon Dioxide 15.0 L, Anion Gap 14, BUN 136 H*, Creatinine 2.21 H, Estim Creat Clear Calc 22.47, Est GFR (MDRD) Af Amer 28 L, Est GFR (MDRD) Non-Af 23 L, BUN/Creatinine Ratio 61.5 H, Glucose 258 H, Calcium 8.1 L, Total Bilirubin 0.20, AST 55 H, ALT 61 H, Alkaline Phosphatase 145 H, Total Protein 4.9 L, Albumin 2.3 L, Globulin 2.6, Albumin/Globulin Ratio 0.9, Lipase 61 03/01/24 07:13: Blood Type O POSITIVE, Antibody Screen NEGATIVE, Crossmatch See Detail 03/01/24 07:30: Lactic Acid 5.5 H* Micro: Microbiology 03/01/24 07:25 Stool Stool Occult Blood (PEGGY) - Final Occult Blood Positive Imaging Radiology Impression Abdomen/Pelvis CT 03/01/24 07:31 IMPRESSION: Moderate to large amount of stool throughout the colon, distending the rectum. Electronically Signed: Christelle Arenas MD at 8:27 EST , Assessment & Plan Assessment/Plan (1) Acute upper GI bleed: (2) ABLA (acute blood loss anemia): (3) Hemorrhagic shock: (4) JENNIFER (acute kidney injury): PLAN: Plan The patient is a 68 y/o F w/ PMHx: Chronic anemia, Obesity, Chronic normocytic anemia, CKD stage II based on GFR trending, Anxiety and Depression/Bipolar disorder/ADHD, Fibromyalgia, History of Breast CA w/ chronic RUE lymphedema associated w/ LNDx/mastectomy w/ breast implant, Lupus who presents to the [facility] ED on 03/01/24 with history of ongoing persistent abdominal pain, constipation and general fatigue and malaise ongoing for at least the last 2 days prompting family to call EMS. In the ED patient with notably dark stool on guiac assessment. #1. Suspected Acute Encephalopathy versus component of chronic memory impairment of unclear etiology secondary to Acute shock suspected multifactorial including hemorrhagic and possibly septic but uncertain secondary to acutely suspected intra-abdominal infection with significant stool burden complicated by acute GI bleed with ABLA/on chronic anemia/Fe deficiency at unclear location w/ evidence of sepsis-induced organ dysfunction/tissue hypoperfusion and sepsis induced hypotension despite adequate fluid administration as evidenced by hypotension with MAP less than 65, significant lactic acidosis, acute kidney injury, hypoxia: Will admit patient to the ICU, continue mess attendant consultation, maintain on IV Flagyl and ciprofloxacin given allergy, maintain on cardiac monitoring, continue to maintain on cardiac monitoring, continue IV fluids per 30 cc/kg IVF bolus, continue PRBC planned administration, continue GI and surgery consultations, if persistent hypotension will necessitate vasopressor therapy, trend lactic acid per facility protocol, PICC line requested. #2. Acute kidney injury on CKD stage II per GFR trending deviously: Secondary to acute presentation as noted #1. Admission BUN/Cr 136/2.21, prior baseline creatinine noted to be 0.7-0.9. Will continue to hydrate, continue plan PRBC administration, hold nephrotoxic medications and repeat chemistry in AM. #3. Acute transaminitis: Suspect secondary to shock, total bilirubin 0.0, AST/ALT 55/61, alk phos 145, continue evaluation treatment as noted above, trend CMP. #4. Hyperglycemia without diabetic history: Admission glucose 258, suspect likely stress response however to be cautious will obtain hemoglobin A1c. #5. History of breast cancer, unclear type: Status postmastectomy which appears bilateral with a right breast implant, chronic lymphedema right upper extremity with postulated lymph node dissection in this arm as etiology, considered in remission, encourage continued outpatient follow-up as previously arranged. #6. Anxiety and depression/bipolar disorder/ADHD: Will temporally hold psychiatric regimen especially given significant acute kidney injury, resume once clinically appropriate and renal function is resolved. Also given presentation with shock low threshold to hold a sedated medication regardless. #7. Lupus: Noted history, per current list does not appear to be on a medication regimen, attempting to clarify, encourage continued outpatient follow-up with rheumatology as previously arranged. #8. Restless leg syndrome: We will continue patient home Requip regimen. #9. DVT prophylaxis: SCDs. #10. CODE status: Patient does not have healthcare power of estate planning attorney or living will in place but notes that she would want her caregiver to be her medical decision maker if appropriate, will need to further clarify this as patient is either mildly encephalopathic given current shock presentation versus underlying memory impairment which is a possibility especially given the fact that she has a caregiver. Discussed CODE status at length including difference between FULL code, DNR-CCA and DNR-CC status. Following discussions about the differences in these status, requested Full Code status which will be continued in the interim until clarified with caregiver. Advanced Care Planning Face to Face Time: 16 minutes. Charges/Coding Visit Charges Inpatient E&M: 67552 Init Hosp L3 Procedures Hospitalists Procedures: 81745 Advncd Care Plan 30 Min
[2024-03-01 09:08] LABS: International Normalized Ratio 1.3; Prothrombin Time (Protime)PT. 16.6 SECONDS (11.7-14.9)
[2024-03-01 09:09] LABS: Partial Thromboplast Time 26.3 Seconds (24.1-36.2)
[2024-03-01] MEDS: Dicyclomine 20 MG/2 ML Vial 10 MG IM (09:25)
[2024-03-01] MEDS: Ciprofloxacin 400 MG/200 ML BAG 200 MG IV (09:52)
--- NOTE | 2024-03-01 10:29 | CON.PCM.CC_ITS ---
Assessment & Plan Assessment/Plan (1) ABLA (acute blood loss anemia): (2) Hemorrhagic shock: PLAN: Plan RECOMMENDATIONS: 1. Additional IV fluid resuscitation and transfusion of blood products as ordered. 2. Check H&H posttransfusion. Transfuse to maintain a hemoglobin at or above 7 g/dL. 3. Continue PPI therapy. 4. Await gastroenterology evaluation with possible endoscopy. 5. Levophed initiation for fluid refractory hypotension. IMPRESSIONS: 1. Acute blood loss anemia The patient presented to the hospital with abdominal pain accompanied by acute blood loss anemia and negative CT abdomen/pelvis. Plan to continue current supportive measures, including supplemental IV fluid hydration and transfusion of blood products as ordered. Check H&H posttransfusion. Goal to maintain hemoglobin at or above 7 g/dL. Continue PPI therapy as ordered. Awaiting gastroenterology evaluation and potential endoscopy today. 2. Acute kidney injury Most likely prerenal in etiology. Agree with aggressive resuscitative efforts, as outlined above. Continue to monitor urine output. No current indication for renal replacement therapy. 3. Lactic acidemia Most likely secondary to generalized hypoperfusion in the setting of blood loss anemia/hemorrhagic shock. Recheck lactate once resuscitative efforts are completed. 4. History of anxiety/bipolar disorder/history of breast CVA/SLE Complicates care, management, recovery and prognosis. The patient is to remain n.p.o. for now. This note was generated with [employer] dictation software. It may contain incorrect words, spelling, and punctuation that were not noted in checking the note before signing. HPI Consult Data Date of Consult: 03/01/24 HPI Narrative Reason for Consultation: Acute blood loss anemia HPI Narrative: The patient is a 68-year-old female, with a history as outlined below, who presented to the emergency department on the morning of March 01 with abdominal pain and constipation of several days duration. She has a documented medical history that includes anxiety, bipolar disorder and history of breast CVA, along with SLE. On presentation to the emergency department, the patient was documented to be afebrile with a presenting blood pressure of 100/86 mmHg. She was otherwise stable from a respiratory perspective, maintaining appropriate oxygen saturations on room air. Initial laboratory evaluation revealed a white blood cell count of 36,000 with a hemoglobin of 4.3 g/dL and platelet count of 359,000. Previously, in June 2023, the patient was noted to have a hemoglobin of 9.7 g/dL. Chemistry profile was notable for a creatinine of 2.2 with a BUN of 136 and bicarbonate of 15. Lactate was elevated at 5.5. AST and ALT were mildly increased at 55 and 61, respectively. CT abdomen/pelvis demonstrated a large amount of stool within the colon, distending the rectum. No free air was noted. In the emergency department, the patient was medically managed with PPI therapy, supplemental IV fluid hydration and transfusion of blood products. Gastroenterology was consulted to evaluate the patient. Stool for occult blood was positive. [facility], [facility] Medical History Lupus Fibromyalgia ADHD Anxiety Bipolar 1 disorder Hx of breast cancer Lymphedema of right arm Home Medications ?Medication ?Instructions ?Recorded ?Last Taken ?Type bupropion HCl 150 mg tablet,12 hr 450 mg PO DAILY 12/06/23 Unknown History sustained-release carvedilol 6.25 mg tablet 6.25 mg PO BID 12/06/23 Unknown History cephalexin 500 mg capsule 1,000 mg PO DAILY 12/06/23 Unknown History clonazepam 2 mg tablet 2 mg PO TID PRN PRN sleep 12/06/23 Unknown History ferrous sulfate 325 mg (65 mg 325 mg PO QODAY 12/06/23 Unknown History iron) tablet (Feosol) loratadine 10 mg tablet (Claritin) 10 mg PO DAILY 12/06/23 Unknown History mirtazapine 30 mg disintegrating 30 mg PO QHS 12/06/23 Unknown History tablet oxycodone-acetaminophen 10 mg-325 1 tab PO Q6H PRN pain 5 days #20 12/06/23 Unknown Rx mg tablet (Percocet) tabs pramipexole 0.25 mg tablet 0.25 mg PO BID 12/06/23 Unknown History quetiapine 50 mg tablet,extended 50 mg PO DAILY 12/06/23 Unknown History release 24 hr tizanidine 4 mg capsule (Zanaflex) 4 mg PO TID PRN muscle pain/spasm 12/06/23 Unknown Rx #30 caps tizanidine 4 mg tablet 4 mg PO Q8H PRN 12/06/23 Unknown History venlafaxine 150 mg 300 mg PO DAILY 12/06/23 Unknown History capsule,extended release 24 hr Allergy/AdvReac Type Severity Reaction Status Date / Time budesonide (From Pulmicort) Allergy Anaphylaxis Verified 03/01/24 05:11 Penicillins Allergy Hives Verified 03/01/24 05:11 Sulfa (Sulfonamide Allergy Rash Verified 03/01/24 05:11 Antibiotics) Family History unable to obtain Surgical History History of tonsillectomy Hx of cholecystectomy Social History Smoking Status: Never smoker ROS ROS Narrative 10 systems were reviewed with pertinent positives as noted in the HPI above. Physical Exam Const alert and no apparent distress General Appearance: cooperative HEENT normocephalic and head/scalp atraumatic HEENT Narrative: Dry mucous membranes Eyes EOMs intact bilaterally and conjunctivae normal Neck supple General: trachea midline Chest inspection of chest normal Resp normal respiratory effort Auscultation: Negative for rales, rhonchi or wheezes Cardio regular rate and regular rhythm GI soft to palpation Palpation: tender; Negative for guarding Extremity no clubbing, cyanosis or edema Skin no rashes or lesions noted Neuro CN's II-XII intact bilaterally and no focal motor deficits Psych cooperative and affect normal Lab / Micro Data 03/01/24 06:35 03/01/24 06:35 Labs: Laboratory Results - last 24 hr 03/01/24 06:35: WBC 36.0 H*, RBC 1.39 L, Hgb 4.3 L*, Hct 13.5 L, MCV 97.1, MCH 30.9, MCHC 31.9 L, RDW Std Deviation 47.7 H, RDW Coeff of Dano 14.8 H, Plt Count 359, MPV 11.1, Immature Gran % (Auto) 1.900 H, Neut % (Auto) 90.9 H, Lymph % (Auto) 3.4 L, Clinch % (Auto) 3.7, Eos % (Auto) 0.0, Baso % (Auto) 0.1, Absolute Neuts (auto) 32.7 H, Absolute Lymphs (auto) 1.21, Nucleated RBC % 0.6, Differential Comment COMMENT, Diff Path Review May foll, PT Cancelled, INR Cancelled, APTT Cancelled, Sodium 138, Potassium 3.9, Chloride 110 H, Carbon Dioxide 15.0 L, Anion Gap 14, BUN 136 H*, Creatinine 2.21 H, Estim Creat Clear Calc 22.47, Est GFR (MDRD) Af Amer 28 L, Est GFR (MDRD) Non-Af 23 L, B UN/Creatinine Ratio 61.5 H, Glucose 258 H, Calcium 8.1 L, Total Bilirubin 0.20, AST 55 H, ALT 61 H, Alkaline Phosphatase 145 H, Total Protein 4.9 L, Albumin 2.3 L, Globulin 2.6, Albumin/Globulin Ratio 0.9, Lipase 61 03/01/24 07:13: Blood Type O POSITIVE, Antibody Screen NEGATIVE, Crossmatch See Detail 03/01/24 07:30: Lactic Acid 5.5 H* 03/01/24 08:54: PT 16.6 H, INR 1.3, APTT 26.3 Micro: Microbiology 03/01/24 07:25 Stool Stool Occult Blood (PEGGY) - Final Occult Blood Positive Imaging Radiology Impression Abdomen/Pelvis CT 03/01/24 07:31 IMPRESSION: Moderate to large amount of stool throughout the colon, distending the rectum. Electronically Signed: Christelle Arenas MD at 8:27 EST , Charges/Coding Visit Charges Inpatient E&M: 93674 Init Hosp L3
[2024-03-01 10:33] LABS: Pathologist Review Reviewed
--- NOTE | 2024-03-01 11:03 | CON.PCM.GI_ITS ---
HPI Consult Data Date of Consult: 03/01/24 HPI Narrative Reason for Consultation: GI bleed HPI Narrative: KAILYN MCKINLEY, is a 68-year-old female with past medical history of bipolar disorder, anxiety, ADHD, lymphedema in the right arm who presents to the emergency department chief complaint of abdominal pain, constipation and not feeling well in general. Per EMS family called stating that she had been constipated for few days. Patient was unable to answer many questions for EMS according to them. Patient here in the emergency department states I cannot do this hospital stuff anymore. She states that she has not had a bowel movement a few days. She has a past medical history of chronic anemia possibly secondary to previous gastric bypass, Obesity, Chronic normocytic anemia, CKD stage II based on GFR trending, Anxiety and Depression/Bipolar disorder/ADHD, Fibromyalgia, History of Breast CA w/ chronic RUE lymphedema associated w/ LNDx, Lupus I was called to see her because of persistent hypotension and presumed upper GI bleed. 03/01/24 06:35: WBC 36.0 H*, RBC 1.39 L, Hgb 4.3 L*, Hct 13.5 L, MCV 97.1, MCH 30.9, MCHC 31.9 L, RDW Std Deviation 47.7 H, RDW Coeff of Dano 14.8 H, Plt Count 359, Sodium 138, Potassium 3.9, Chloride 110 H, Carbon Dioxide 15.0 L, Anion Gap 14, BUN 136 H*, Creatinine 2.21 H, Total Bilirubin 0.20, AST 55 H, ALT 61 H, Alkaline Phosphatase 145 H, Total Protein 4.9 L, Albumin 2.3 L, Globulin 2.6, Albumin/Globulin Ratio 0.9, Lipase 61 Lactic Acid 5.5 H* PT 16.6 H, INR 1.3, APTT 26.3 PFSH Medical History Lupus Fibromyalgia ADHD Anxiety Bipolar 1 disorder Hx of breast cancer Lymphedema of right arm Home Medications ?Medication ?Instructions ?Recorded ?Last Taken ?Type bupropion HCl 150 mg tablet,12 hr 450 mg PO DAILY 12/06/23 Unknown History sustained-release carvedilol 6.25 mg tablet 6.25 mg PO BID 12/06/23 Unknown History cephalexin 500 mg capsule 1,000 mg PO DAILY 12/06/23 Unknown History clonazepam 2 mg tablet 2 mg PO TID PRN PRN sleep 12/06/23 Unknown History ferrous sulfate 325 mg (65 mg 325 mg PO QODAY 12/06/23 Unknown History iron) tablet (Feosol) loratadine 10 mg tablet (Claritin) 10 mg PO DAILY 12/06/23 Unknown History mirtazapine 30 mg disintegrating 30 mg PO QHS 12/06/23 Unknown History tablet oxycodone-acetaminophen 10 mg-325 1 tab PO Q6H PRN pain 5 days #20 12/06/23 Unknown Rx mg tablet (Percocet) tabs pramipexole 0.25 mg tablet 0.25 mg PO BID 12/06/23 Unknown History quetiapine 50 mg tablet,extended 50 mg PO DAILY 12/06/23 Unknown History release 24 hr tizanidine 4 mg capsule (Zanaflex) 4 mg PO TID PRN muscle pain/spasm 12/06/23 Unknown Rx #30 caps tizanidine 4 mg tablet 4 mg PO Q8H PRN 12/06/23 Unknown History venlafaxine 150 mg 300 mg PO DAILY 12/06/23 Unknown History capsule,extended release 24 hr Allergy/AdvReac Type Severity Reaction Status Date / Time budesonide (From Pulmicort) Allergy Anaphylaxis Verified 03/01/24 05:11 Penicillins Allergy Hives Verified 03/01/24 05:11 Sulfa (Sulfonamide Allergy Rash Verified 03/01/24 05:11 Antibiotics) Family History unable to obtain Surgical History History of tonsillectomy Hx of cholecystectomy Social History Smoking Status: Never smoker Physical Exam Const alert, oriented x3, no apparent distress and healthy appearing General Appearance: cooperative GI normal to inspection, nondistended, normoactive bowel sounds, soft to palpation, non-tender and non-distended Percussion: normal to percussion Rectal Exam: deferred Lab / Micro Data 03/01/24 06:35 03/01/24 06:35 Labs: Laboratory Results - last 24 hr 03/01/24 06:35: WBC 36.0 H*, RBC 1.39 L, Hgb 4.3 L*, Hct 13.5 L, MCV 97.1, MCH 30.9, MCHC 31.9 L, RDW Std Deviation 47.7 H, RDW Coeff of Dano 14.8 H, Plt Count 359, MPV 11.1, Immature Gran % (Auto) 1.900 H, Neut % (Auto) 90.9 H, Lymph % (Auto) 3.4 L, [place] % (Auto) 3.7, Eos % (Auto) 0.0, Baso % (Auto) 0.1, Absolute Neuts (auto) 32.7 H, Absolute Lymphs (auto) 1.21, Nucleated RBC % 0.6, Differential Comment COMMENT, Diff Path Review Reviewed, PT Cancelled, INR Cancelled, APTT Cancelled, Sodium 138, Potassium 3.9, Chloride 110 H, Carbon Dioxide 15.0 L, Anion Gap 14, BUN 136 H*, Creatinine 2.21 H, Estim Creat Clear Calc 22.47, Est GFR (MDRD) Af Amer 28 L, Est GFR (MDRD) Non-Af 23 L, B UN/Creatinine Ratio 61.5 H, Glucose 258 H, Calcium 8.1 L, Total Bilirubin 0.20, AST 55 H, ALT 61 H, Alkaline Phosphatase 145 H, Total Protein 4.9 L, Albumin 2.3 L, Globulin 2.6, Albumin/Globulin Ratio 0.9, Lipase 61 03/01/24 07:13: Blood Type O POSITIVE, Antibody Screen NEGATIVE, Crossmatch See Detail 03/01/24 07:30: Lactic Acid 5.5 H* 03/01/24 08:54: PT 16.6 H, INR 1.3, APTT 26.3 Micro: Microbiology 03/01/24 07:25 Stool Stool Occult Blood (PEGGY) - Final Occult Blood Positive Imaging Radiology Impression Abdomen/Pelvis CT 03/01/24 07:31 IMPRESSION: Moderate to large amount of stool throughout the colon, distending the rectum. Electronically Signed: Christelle Arenas MD at 8:27 EST Reading Location ID and State: [facility] / [place] Tel , Service support , Assessment & Plan Assessment/Plan (1) ABLA (acute blood loss anemia): (2) Hemorrhagic shock: (3) Acute upper GI bleed: (4) Constipation: PLAN: 68-year-old with multiple medical problems including morbid obesity status post Ramon-en-Y gastric bypass. She has a history of chronic anemia with a baseline hemoglobin around 9 on iron therapy who presents with constipation and discovered to be hypotensive and to have a hemoglobin of 4.6 along with increased BUN/creatinine ratio possibly secondary to upper GI bleed. Patient is persistently hypotensive. She will need to undergo emergent endoscopy. She was explained alternatives, risk and benefits include not withstanding bleeding, infection, sepsis, perforation, need for charge and . She will have an ASA of 3. Charges/Coding Visit Charges Inpatient E&M: 88461 Init Hosp L3
--- NOTE | 2024-03-01 11:08 | PCM.PRE.AN2 ---
ASA Classification* ASA Classification ASA Classification: 3 and E Assessment & Plan Anesthesia* Anesthesia Assessment Anesthesia Assessment: Discussed sedation and/or anesthesia options, risks, benefits, and alternatives with patient/parents/legal guardian/POA. Questions invited. The patient/parents/legal guardian/POA seems to understand and agrees to proceed with anesthesia plan. Reviewed the physical assessment, medical history, allergy history and patient home medications list prior to surgery/procedure/anesthetic and documented any changes. Performed airway and anesthesia risk assessments. Anesthesia Type Anesthesia Type: MAC History Source History Obtained from:: Patient and Chart Anesthesia Focused Assessment* Temperature: 98 F Pulse Rate: 75 Blood Pressure: 100/69 Respiratory Rate: 18 Pulse Ox: 94 Oxygen Delivery Method: Nasal Cannula Oxygen Flow Rate (L/min): 3 Airway Assessment Mouth opens: >3 cm Mallampati Score: I Teeth Condition: Dentures (Patient has full dentures. They are out.) Neck Range of motion (ROM): Full ROM Focused Labs Anesthesia Preop lab: CBC WBC 36.0 K/mm3 (4.4-11.0) H* 03/01/24 06:35 RBC 1.39 M/mm3 (4.2-5.4) L 03/01/24 06:35 Hgb 4.3 g/dL (12.0-15.0) L* 03/01/24 06:35 Hct 13.5 % (37-47) L 03/01/24 06:35 Plt Count 359 K/mm3 (150-450) 03/01/24 06:35 CHEMISTRY Potassium 3.9 mmol/L (3.5-5.1) 03/01/24 06:35 Sodium 138 mmol/L (136-145) 03/01/24 06:35 Magnesium Pending 03/01/24 06:53 Phosphorus Pending 03/01/24 06:53 BUN 136 mg/dL (7-18) H* 03/01/24 06:35 Creatinine 2.21 mg/dL (0.55-1.02) H 03/01/24 06:35 Glucose 258 mg/dL (74-106) H 03/01/24 06:35 COAG PT 16.6 SECONDS (11.7-14.9) H 03/01/24 08:54 Pre-Assessment Diagnosis/Proposed Procedure Planned Operative Procedure(s): Esophagogastroduodenoscopy Anesthesia History 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 When Was Last Pacemaker Check QUESTION #4 FULL TEXT: You/Your Family Experience fever (hyperthermia) with Anesthesia Last Oral Intake Last Oral intake: Last Oral Intake NPO since Meds taken in AM with sips of water? Meds patient instructed to take am of surgery Any additional information?: Yes NPO since: 00:00 Meds taken in AM with sips of water?: No PONV PONV - industrial engineering technician: PONV - industrial engineering technician Female HX of Motion Sickness HX of N/V After Surgery Non-Smoker Duration of Surgery greater than 60 minutes Number of Risk Factors PONV Score Height & Weight Height & Weight: Anesthesia: Height & Weight Height 4 ft 9 in 03/01/24 05:11 Weight: 79.832 kg 03/01/24 05:11 Body Mass Index (BMI) 38.0 03/01/24 05:11 Respiratory Assessment Respiratory Assessment - industrial engineering technician: Respiratory Tract Infection Hx - industrial engineering technician Hx Respiratory Tract Infection Any additional information?: Yes Hx Respiratory Tract Infection: No STOP Sleep Apnea STOP Sleep Apnea - industrial engineering technician: STOP Sleep Apnea - industrial engineering technician Hx Hypertension Hx Sleep Apnea CPAP BIPAP Do you snore loudly (louder than talking or can be heard Do you often feel tired/ fatigued/ sleepy during daytime? Has anyone observed you stop breathing during sleep? STOP Results QUESTION #5 FULL TEXT : Do you snore loudly (louder than talking or can be heard through closed doors)? 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 Specify any problems Hx of Preganancy in last 3 Months Nurse Filling Out Transfusion & Questions: Date: Time: Patient unable to answer at this time (ie. confused, unrespo /Reproduction History /Reproductive History - industrial engineering technician: /Reproductive Hx- industrial engineering technician Hx Now Gestational Age (in weeks): EDC: Hx Hx Para Hx Section SAB Active Medications Active Medications: Current Medications Generic Name Dose Route Start Last Admin Trade Name Freq PRN Reason Stop Dose Admin Pantoprazole Sodium 80 mg/ 100 mls @ 10 mls/hr 03/01/24 07:50 03/01/24 08:10 Sodium Chloride CONT INF 10 mls/hr Q10H DERRICK Administration PFSH Medical History Lupus Fibromyalgia ADHD Anxiety Bipolar 1 disorder Hx of breast cancer Lymphedema of right arm Home Medications ?Medication ?Instructions ?Recorded ?Last Taken ?Type bupropion HCl 150 mg tablet,12 hr 450 mg PO DAILY 12/06/23 Unknown History sustained-release carvedilol 6.25 mg tablet 6.25 mg PO BID 12/06/23 Unknown History cephalexin 500 mg capsule 1,000 mg PO DAILY 12/06/23 Unknown History clonazepam 2 mg tablet 2 mg PO TID PRN PRN sleep 12/06/23 Unknown History ferrous sulfate 325 mg (65 mg 325 mg PO QODAY 12/06/23 Unknown History iron) tablet (Feosol) loratadine 10 mg tablet (Claritin) 10 mg PO DAILY 12/06/23 Unknown History mirtazapine 30 mg disintegrating 30 mg PO QHS 12/06/23 Unknown History tablet oxycodone-acetaminophen 10 mg-325 1 tab PO Q6H PRN pain 5 days #20 12/06/23 Unknown Rx mg tablet (Percocet) tabs pramipexole 0.25 mg tablet 0.25 mg PO BID 12/06/23 Unknown History quetiapine 50 mg tablet,extended 50 mg PO DAILY 12/06/23 Unknown History release 24 hr tizanidine 4 mg capsule (Zanaflex) 4 mg PO TID PRN muscle pain/spasm 12/06/23 Unknown Rx #30 caps tizanidine 4 mg tablet 4 mg PO Q8H PRN 12/06/23 Unknown History venlafaxine 150 mg 300 mg PO DAILY 12/06/23 Unknown History capsule,extended release 24 hr Allergy/AdvReac Type Severity Reaction Status Date / Time budesonide (From Pulmicort) Allergy Anaphylaxis Verified 03/01/24 05:11 Penicillins Allergy Hives Verified 03/01/24 05:11 Sulfa (Sulfonamide Allergy Rash Verified 03/01/24 05:11 Antibiotics) Family History unable to obtain Surgical History History of tonsillectomy Hx of cholecystectomy Social History Smoking Status: Never smoker Review of Systems (Anesthesia) ROS Narrative System reviewed and no additional complaints, except as documented.
--- NOTE | 2024-03-01 11:18 | ED.RN ---
PT IN ENDO
[2024-03-01 11:20] LABS: Magnesium 4.1 mg/dL (1.6-2.6); Phosphorus 5.3 mg/dL (2.5-4.9)
[2024-03-01 11:38] LABS: Reflex Lactate? Y
--- NOTE | 2024-03-01 11:39 | OP.EGD_ITS ---
Patient Name: Dot Lugo Procedure Date: 03/01/2024 11:09 AM Date of : 1955 Age: 68 Procedure: Upper GI endoscopy Indications: Iron deficiency anemia, Suspected upper gastrointestinal bleeding Providers: Maurilio Toledo DO Medicines: Monitored Anesthesia Care Patient Profile: This is a 68 year old female. Refer to note in patient chart for documentation of history and physical. Patient has symptoms. Complications: No immediate complications. Procedure: Pre-Anesthesia Assessment: - Prior to the procedure, a History and Physical was performed, and patient medications and allergies were reviewed. The patient is competent. The risks and benefits of the procedure and the sedation options and risks were discussed with the patient. All questions were answered and informed consent was obtained. Patient identification and proposed procedure were verified by the physician in the pre-procedure area. Mental Status Examination: alert and oriented. Airway Examination: normal oropharyngeal airway and neck mobility. Respiratory Examination: clear to auscultation. CV Examination: normal. Prophylactic Antibiotics: The patient does not require prophylactic antibiotics. Prior Anticoagulants: The patient has taken no anticoagulant or antiplatelet agents except for NSAID medication. ASA Grade Assessment: III - A patient with severe systemic disease. After reviewing the risks and benefits, the patient was deemed in satisfactory condition to undergo the procedure. The anesthesia plan was to use monitored anesthesia care (MAC). Immediately prior to administration of medications, the patient was re-assessed for adequacy to receive sedatives. The heart rate, respiratory rate, oxygen saturations, blood pressure, adequacy of pulmonary ventilation, and response to care were monitored throughout the procedure. The physical status of the patient was re-assessed after the procedure. After obtaining informed consent, the endoscope was passed under direct vision. Throughout the procedure, the patient's blood pressure, pulse, and oxygen saturations were monitored continuously. The Endoscope was introduced through the mouth, and advanced to the second part of duodenum. The upper GI endoscopy was accomplished without difficulty. The patient tolerated the procedure well. 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 Evidence of a Ramon-en-Y gastrojejunostomy was found. The gastrojejunal anastomosis was characterized by healthy appearing mucosa. This was traversed. The kzbis-up-uowjnjo limb was characterized by healthy appearing mucosa. The jejunojejunal anastomosis was characterized by healthy appearing mucosa. The [id number]-[id number] limb was not examined as it could not be found. The excluded stomach was not examined as it could not be found. The examined jejunum was normal. Estimated blood loss: none. Impression: - Glycogenic acanthosis with sloughing of the esophagus likely secondary to oral iron. - Ramon-en-Y gastrojejunostomy with gastrojejunal anastomosis characterized by healthy appearing mucosa. - Normal examined jejunum. - No specimens collected. Recommendation: - Return patient to ICU for ongoing care. - Resume regular diet. - Continue present medications. -Protonix 40 mg IV every 12 hour -Check iron studies along with B12 and folic acid -Transfuse iron if needed and hold oral iron Procedure Code(s): --- Professional --- 62903, Esophagogastroduodenoscopy, flexible, transoral; diagnostic, including collection of specimen(s) by brushing or washing, when performed (separate procedure) CPT copyright 2021 [employer]. All rights reserved. The codes documented in this report are preliminary and upon special tax auditor review may be revised to meet current compliance requirements. Maurilio Toledo DO 03/01/2024 11:38:44 AM This report has been signed electronically. Number of Addenda: 0 Note Initiated On: 03/01/2024 11:09 AM
--- NOTE | 2024-03-01 11:39 | OP.CCLET_ITS ---
03/01/2024 aCss Daniels Do Re : Upper GI endoscopy procedure for Dotguzman Lugo Dear Dr. Daniels This procedure was performed on Friday, March 01, 2024. 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 - Ramon-en-Y gastrojejunostomy with gastrojejunal anastomosis characterized by healthy appearing mucosa. - Normal examined jejunum. - No specimens collected. Recommendations : - Return patient to ICU for ongoing care. - Resume regular diet. - Continue present medications. -Protonix 40 mg IV every 12 hour -Check iron studies along with B12 and folic acid -Transfuse iron if needed and hold oral iron My findings are described in the full procedure note, which is enclosed. If I can be of further assistance, please feel free to contact me at . Sincerely, Maurilio Toledo, 03/01/2024 11:38:44 AM This report has been signed electronically.
--- NOTE | 2024-03-01 12:02 | PCM.POST.ANE ---
Anesthesia: Postop Eval I Current Vital Signs Temperature: 98 F Pulse Rate: 92 Blood Pressure: 97/78 Respiratory Rate: 18 Pulse Ox: 100 Oxygen Delivery Method: Nasal Cannula Oxygen Flow Rate (L/min): 3 Assessment Airway patent: Yes Spontaneous unlabored respirations: Yes Mental status: Awake and Confused nausea: No Vomiting: No Anesthesia Complication: No Fluid Hydration Crystalloid volume administer (ml): 60 Total IV fluid infused: 60 Progress Note Anesthesia document: Postop Eval 1 completed: Yes
[2024-03-01] MEDS: 0.9% Normal Saline (1000mL) 1,000 ML 100 ML IV (12:17)
[2024-03-01 12:39] LABS: Hematocrit 17.7 % (37-47); POSITIVE COUNT YES
[2024-03-01 12:42] LABS: Hemoglobin 5.6 g/dL (12.0-15.0)
[2024-03-01 13:10] LABS: Lactic Acid 1.6 mmol/L (0.4-1.9)
--- NOTE | 2024-03-01 14:31 | CON.PCM.SX_ITS ---
Assessment & Plan Assessment/Plan (1) Hemorrhagic shock: (2) Constipation: (3) Acute upper GI bleed: PLAN: Plan The patient is a 68-year-old female with abdominal pain, constipation, leukocytosis and presumably blood loss anemia. EGD was unremarkable. CT scan of her abdomen pelvis was negative for any signs of perforation and was only notable for profound constipation. She denies any previous colonoscopy. At this point I have no surgical plans. I suspect GI will do a bowel prep and colonoscopy once stable. We will continue to follow closely and advise accordingly HPI Consult Data Date of Consult: 03/01/24 HPI Narrative Reason for Consultation: Abdominal pain HPI Narrative: KAILYN MCKINLEY, is a 68 F who presented to the emergency department with complaints of abdominal pain and weakness. Sounds as though this has been going on for several days and intensified earlier today. EMS was called and she was brought to the emergency department where she was seen evaluate by the ER staff. She was found to have significant leukocytosis. She was profoundly anemic. She had very dark stools. She was also quite hypotensive. She was given fluid and blood and plans were being made to admit the patient to the ICU. Once stabilized she underwent EGD by GI earlier today. Review of the notes seem to indicate this was fairly unremarkable in terms of a source for her low hemoglobin. No obvious source of infection to explain the leukocytosis was noted. CT scan showed no significant findings other than pretty profound constipation. No obvious free air was noted. Surgery consult was obtained due to abdominal pain and leukocytosis. She does have multiple medical problems. She admits to having chronic GI issues. She does have a history of gastric bypass surgery. Currently she is comfortable but yet complains of upper abdominal pain. [facility] Medical History CKD (chronic kidney disease), stage II RLS (restless legs syndrome) Allergic rhinitis Anxiety and depression Iron deficiency Chronic anemia Lupus Fibromyalgia ADHD Bipolar 1 disorder Hx of breast cancer Lymphedema of right arm Home Medications ?Medication ?Instructions ?Recorded ?Last Taken ?Type bupropion HCl 150 mg tablet,12 hr 450 mg PO DAILY 12/06/23 Unknown History sustained-release carvedilol 6.25 mg tablet 6.25 mg PO BID 12/06/23 Unknown History cephalexin 500 mg capsule 1,000 mg PO DAILY 12/06/23 Unknown History clonazepam 2 mg tablet 2 mg PO TID PRN PRN sleep 12/06/23 Unknown History ferrous sulfate 325 mg (65 mg 325 mg PO QODAY 12/06/23 Unknown History iron) tablet (Feosol) loratadine 10 mg tablet (Claritin) 10 mg PO DAILY 12/06/23 Unknown History mirtazapine 30 mg disintegrating 30 mg PO QHS 12/06/23 Unknown History tablet oxycodone-acetaminophen 10 mg-325 1 tab PO Q6H PRN pain 5 days #20 12/06/23 Unknown Rx mg tablet (Percocet) tabs pramipexole 0.25 mg tablet 0.25 mg PO BID 12/06/23 Unknown History quetiapine 50 mg tablet,extended 50 mg PO DAILY 12/06/23 Unknown History release 24 hr tizanidine 4 mg capsule (Zanaflex) 4 mg PO TID PRN muscle pain/spasm 12/06/23 Unknown Rx #30 caps tizanidine 4 mg tablet 4 mg PO Q8H PRN 12/06/23 Unknown History venlafaxine 150 mg 300 mg PO DAILY 12/06/23 Unknown History capsule,extended release 24 hr Allergy/AdvReac Type Severity Reaction Status Date / Time budesonide (From Pulmicort) Allergy Anaphylaxis Verified 03/01/24 05:11 Penicillins Allergy Hives Verified 03/01/24 05:11 Sulfa (Sulfonamide Allergy Rash Verified 03/01/24 05:11 Antibiotics) Family History Mother Valvular heart disease Heart disease Father Alzheimer dementia Family History unable to obtain Surgical History S/P gastric bypass Status post total bilateral knee replacement S/P hysterectomy S/P shoulder surgery S/P cataract extraction History of tonsillectomy Hx of cholecystectomy Social History household members: other details: Reports living with a caregiver. Smoking Status: Never smoker alcohol intake: never substance use type: does not use ROS Eyes Eyes: Reports systems reviewed and no addt'l complaints, except as documented ENT HEENT: Reports systems reviewed and no addt'l complaints, except as documented Cardiovascular Cardiovascular: Reports systems reviewed and no addt'l complaints, except as documented Respiratory/Chest Respiratory/Chest: Reports systems reviewed and no addt'l complaints, except as documented Gastrointestinal Gastrointestinal: Reports systems reviewed and no addt'l complaints, except as documented Genitourinary Genitourinary: Reports systems reviewed and no addt'l complaints, except as documented Musculoskeletal Musculoskeletal: Reports systems reviewed and no addt'l complaints, except as documented Integumentary Integumentary: Reports systems reviewed and no addt'l complaints, except as documented Neurologic Neurologic: Reports systems reviewed and no addt'l complaints, except as documented Physical Exam Narrative She is alert and oriented. Does not appear to be in any acute distress. Abdomen is obese and soft. Moderate diffuse tenderness palpation but pain seems to be mostly in the upper abdomen. No obvious peritoneal signs Lab / Micro Data 03/01/24 12:30 03/01/24 06:35 Labs: Laboratory Results - last 24 hr 03/01/24 06:35: WBC 36.0 H*, RBC 1.39 L, Hgb 4.3 L*, Hct 13.5 L, MCV 97.1, MCH 30.9, MCHC 31.9 L, RDW Std Deviation 47.7 H, RDW Coeff of Dano 14.8 H, Plt Count 359, MPV 11.1, Immature Gran % (Auto) 1.900 H, Neut % (Auto) 90.9 H, Lymph % (Auto) 3.4 L, [place] % (Auto) 3.7, Eos % (Auto) 0.0, Baso % (Auto) 0.1, Absolute Neuts (auto) 32.7 H, Absolute Lymphs (auto) 1.21, Nucleated RBC % 0.6, Differential Comment COMMENT, Diff Path Review Reviewed, PT Cancelled, INR Cancelled, APTT Cancelled, Sodium 138, Potassium 3.9, Chloride 110 H, Carbon Dioxide 15.0 L, Anion Gap 14, BUN 136 H*, Creatinine 2.21 H, Estim Creat Clear Calc 22.47, Est GFR (MDRD) Af Amer 28 L, Est GFR (MDRD) Non-Af 23 L, B UN/Creatinine Ratio 61.5 H, Glucose 258 H, Calcium 8.1 L, Total Bilirubin 0.20, AST 55 H, ALT 61 H, Alkaline Phosphatase 145 H, Total Protein 4.9 L, Albumin 2.3 L, Globulin 2.6, Albumin/Globulin Ratio 0.9, Lipase 61 03/01/24 06:53: Phosphorus 5.3 H, Magnesium 4.1 H 03/01/24 07:13: Blood Type O POSITIVE, Antibody Screen NEGATIVE, Crossmatch See Detail 03/01/24 07:30: Lactic Acid 5.5 H* 03/01/24 08:54: PT 16.6 H, INR 1.3, APTT 26.3 03/01/24 12:30: Hgb 5.6 L*, Hct 17.7 L, Lactic Acid 1.6 Micro: Microbiology 03/01/24 07:25 Stool Stool Occult Blood (PEGGY) - Final Occult Blood Positive Imaging Radiology Impression Abdomen/Pelvis CT 03/01/24 07:31 IMPRESSION: Moderate to large amount of stool throughout the colon, distending the rectum. Electronically Signed: Christelle Arenas MD at 8:27 EST , Charges/Coding Visit Charges Inpatient E&M: 69279 Init Hosp L3
--- NOTE | 2024-03-01 15:10 | PCM.POSTANE2 ---
Anesthesia Postop Eval I Sum Postop Eval Completion status Anesthesia document: Postop Eval 1 completed: Yes Anesthesia Postop Eval I Summary Anesthesia Postop Eval I Summary: Anesthesia Postop Eval I: Assessment Summary Airway patent Yes 03/01/24 12:02 [email or web address] Spontaneous unlabored Yes 03/01/24 12:02 [email or web address] respirations Mental status Awake,Confused 03/01/24 12:02 [email or web address] nausea No 03/01/24 12:02 [email or web address] Vomiting No 03/01/24 12:02 [email or web address] Anesthesia Postop Eval I: Fluid Summary Crystalloid volume administer 60 03/01/24 12:02 [email or web address] (ml) Colloids volume administered ( ml) Blood Product volume administered (ml) Total IV fluid infused 60 03/01/24 12:02 [email or web address] Anesthesia Postop Eval I: Summary Notes Anesthesia Complication No 03/01/24 12:02 [email or web address] Anesthesia Complication Comment: Post-operative progress note Anesthesia: Postop Eval II Evaluation Mental status: Awake and Confused (Discussed with Dr. Box. She feels may be related to her pain which is from her abdomen may be exacerbated by the entrained air during the procedure.) Pain Level: 2 nausea: No Vomiting: No Complications Anesthesia Complication: No
--- NOTE | 2024-03-01 16:40 | CASEMGMT ---
CLINT BECKMAN Assessment Face to Face with patient for initial transition planning/care coordination assessment. CLINT BECKMAN introduced self and role at [facility], pt voices understanding. Pt is A&Ox4 and is resting comfortably in bed and is calm. Pt son and DIL at bedside. Care providers, pharmacy, and demographics verified. Admitting dx: UGIB, JENNIFER, hemorrhagic Shock LACE Strata: Not populated yet PCP: Cass Daniels Specialists: Dr. Dimas (Ortho), Pt states that she sees a Psychiatrist and an ENT doctor but is unsure of the names Preferred Pharmacy: [email or web address] Insurance: [employer] [facility] Prescription Benefit: Yes LNOK: Gonsalo Lugo (Son), Padmini Pantoja (Caregiver - [employer]GRAM [employer]ESSION[employer]) Living Arrangements: Pt lives with her caregiver and her caregiver's and their 5 y/o daughter in a single story home with a ramp to enter ADLs/IADLs: Pt requires assistance and the pt caregiver is able to provide this help Transportation: Padmini DME: Pt is currently requiring additional oxygen and may qualify for home oxygen use. A verbal list of local in-network DME companies were provided to the pt at this time. Pt prefers [employer]. Pt also has a medical alert system, rollator, W/C, Cane, shower bench, and grab bars HHC/SNF: Pt states that her caregiver is an PROGRAM PROFESSIONAL. Pt states that she has been to a in [place] as well as [facility] in [place] Pt?s goal: Return to PLOF Plan: TBD. Anticipate SNF vs return home with her caregiver. To follow for oxygen needs. Current 6-Click is 10. PT and OT are ordered and pending. Pt states that she is unsure of what she will need or want at time of DC, but states that she would remain open to rehab if warranted. Care Management to continue to follow. Pt denies further questions or concerns at this time. Reji Lugo RN, CM
[2024-03-01 17:30] LABS: Hematocrit 23.7 % (37-47); Hemoglobin 8.2 g/dL (12.0-15.0)
[2024-03-01] MEDS: Acetaminophen 325 MG Tablet 650 MG PO (21:00)
[2024-03-01] MEDS: Pramipexole Di-HCl 0.25 MG Tablet PO (21:00)
[2024-03-01 22:19] LABS: Hematocrit 22.9 % (37-47); Hemoglobin 7.8 g/dL (12.0-15.0)
[2024-03-02] VITALS (23 sets, daily range): BP systolic 82–125; BP diastolic 49–74; PULSE 89–107; RESP 15–25; TEMP 36.3–37.7; O2SAT 92–100; BMI 37.9
[2024-03-02] MEDS: Albumin Human 25% (100 mL) 25 GM/100 ML BAG IV ×2 (00:53→04:03)
[2024-03-02] MEDS: Pantoprazole Sodium 80 MG in 0.9% Normal Saline (100mL Bag) 80 ML 10 MG CONT INF ×2 (04:09→13:52)
[2024-03-02] MEDS: metroNIDAZOLE 500 MG/100 ML BAG 100 MG IV ×2 (05:51→13:56)
[2024-03-02] MEDS: 0.9% Saline Lock 10 ML Syringe IV ×2 (05:55→17:17)
[2024-03-02 06:06] LABS: Absolute Neutrophil Count 22.8 X10^3/uL (2.0-7.7); Basophil# 0.06 X10^3/uL; Basophil% 0.2 % (0-1); Hematocrit 20.9 % (37-47); Hemoglobin 7.2 g/dL (12.0-15.0); Lymphocyte % 5.1 % (19-41); Mean Corp Hgb Conc 34.4 g/dL (32-36); Mean Corpuscular Hgb 31.3 pg (27.0-32.0); Mean Corpuscular Volume 90.9 fL (81-99); Mean Platelet Vol. 10.6 fl (6.2-12.0); Monocyte% 3.9 % (0-10); NRBC Flagged by Analyzer 2.2 % (0-5); Neutrophil # 22.76 X10^3/uL (2.7-7.7); Neutrophil % 89.7 % (47-70); POSITIVE DIFFERENTIAL YES; POSITIVE MORPHOLOGY YES; Platelet Count 298 K/mm3 (150-450); RBC Distribution Width CV 14.8 % (11.6-14.6); RBC Distribution Width SD 45.1 fl (35.1-43.9); White Blood Count 25.4 K/mm3 (4.4-11.0)
[2024-03-02 06:11] LABS: Differential Indicated SCAN CRITERIA MET
--- NOTE | 2024-03-02 06:15 | PCM.PN.HOSP ---
Reason for Visit Reason for Visit: Diagnoses Acute posthemorrhagic anemia (03/01/24) Constipation, unspecified (03/01/24) Gastrointestinal hemorrhage, unspecified (03/01/24) Acute kidney failure, unspecified (03/01/24) Other shock (03/01/24) Subjective Subjective Patient overnight with blood pressure dropping with MAP as low as 63 but improved into the upper 60 lower 70 range without pressor therapy. PICC line was attempted to be placed but unfortunately unsuccessful. Patient had onset of significant bowel movements some formed and some loose with abdominal cramping associated overnight which is continued and persisted. Patient denies any associated nausea or emesis. Patient stools have been dark black in appearance per discussion with nurse. Patient denies fevers, chills, chest pain or dyspnea. Objective Data Objective Data Vital Signs: Vital Signs Temp Pulse Resp BP Pulse Ox O2 Del Method O2 Flow Rate 97.4 F L 95 21 H 97/56 L 100 Nasal Cannula 3 03/02/24 03:00 03/02/24 05:00 03/02/24 05:00 03/02/24 05:00 03/02/24 05:00 03/02/24 05:32 03/02/24 05:32 Oxygen Flow Rate (L/min) 3 Oxygen Delivery Method Nasal Cannula Weight: 175 lb 14.862 oz Body Mass Index (BMI) 37.9 Intake & Output: Intake and Output for Last 24 Hours 02/29/24 03/01/24 03/02/24 23:59 23:59 23:59 Intake Total 4989 / 4989 295.17 / 295.17 Output Total 250 / 250 Balance 4989 / 4739 45.17 / 45.17 Lab / Micro Data 03/02/24 05:35 03/02/24 05:35 Labs: Laboratory Results - last 24 hr 03/01/24 06:35: WBC 36.0 H*, RBC 1.39 L, Hgb 4.3 L*, Hct 13.5 L, MCV 97.1, MCH 30.9, MCHC 31.9 L, RDW Std Deviation 47.7 H, RDW Coeff of Dano 14.8 H, Plt Count 359, MPV 11.1, Immature Gran % (Auto) 1.900 H, Neut % (Auto) 90.9 H, Lymph % (Auto) 3.4 L, [place] % (Auto) 3.7, Eos % (Auto) 0.0, Baso % (Auto) 0.1, Absolute Neuts (auto) 32.7 H, Absolute Lymphs (auto) 1.21, Nucleated RBC % 0.6, Differential Comment COMMENT, Diff Path Review Reviewed, PT Cancelled, INR Cancelled, APTT Cancelled, Sodium 138, Potassium 3.9, Chloride 110 H, Carbon Dioxide 15.0 L, Anion Gap 14, BUN 136 H*, Creatinine 2.21 H, Estim Creat Clear Calc 22.47, Est GFR (MDRD) Af Amer 28 L, Est GFR (MDRD) Non-Af 23 L, BUN/Creatinine Ratio 61.5 H, Glucose 258 H, Calcium 8.1 L, Total Bilirubin 0.20, AST 55 H, ALT 61 H, Alkaline Phosphatase 145 H, Total Protein 4.9 L, Albumin 2.3 L, Globulin 2.6, Albumin/Globulin Ratio 0.9, Lipase 61 03/01/24 06:53: Phosphorus 5.3 H, Magnesium 4.1 H 03/01/24 07:13: Blood Type O POSITIVE, Antibody Screen NEGATIVE, Crossmatch See Detail 03/01/24 07:30: Lactic Acid 5.5 H* 03/01/24 08:54: PT 16.6 H, INR 1.3, APTT 26.3 03/01/24 12:30: Hgb 5.6 L*, Hct 17.7 L, Lactic Acid 1.6 03/01/24 17:20: Hgb 8.2 L, Hct 23.7 L 03/01/24 22:10: Hgb 7.8 L, Hct 22.9 L 03/02/24 05:35: WBC 25.4 H, RBC 2.30 L, Hgb 7.2 L, Hct 20.9 L, MCV 90.9 D, MCH 31.3, MCHC 34.4 D, RDW Std Deviation 45.1 H, RDW Coeff of Dano 14.8 H, Plt Count 298, MPV 10.6, Immature Gran % (Auto) 1.100 H, Neut % (Auto) 89.7 H, Lymph % (Auto) 5.1 L, [place] % (Auto) 3.9, Eos % (Auto) 0.0, Baso % (Auto) 0.2, Absolute Neuts (auto) 22.8 H, Absolute Lymphs (auto) 1.30, Nucleated RBC % 2.2 Micro: Microbiology 03/01/24 07:40 Blood Culture (Wb) - Anticubital Left Blood Culture - Preliminary 03/01/24 07:25 Stool Stool Occult Blood (PEGGY) - Final Occult Blood Positive Radiography Diagnostic Testing: Radiology Impression Abdomen/Pelvis CT 03/01/24 07:31 IMPRESSION: Moderate to large amount of stool throughout the colon, distending the rectum. Electronically Signed: Christelle Arenas MD at 8:27 EST , Physical Exam Narrative Physical Examination: General: Patient is more alert, awake, interactive, oriented x 3 but does have likely some underlying chronic memory impairment suspected, seated upright in the ICU bed, notes abdominal cramping. Skin: Normal color, normal turgor, no icterus, no cyanosis except for very stage ecchymoses, abrasions HEENT: AT/NC, EOMI, PERRLA, improved MMM, false teeth in place. Lungs: Diminished, greater bases, mildly increased respiratory rate but no distress, no rales, ronchi or wheezing. Heart: Improved, regular rate with regular rhythm; no gallop, rub audible. Abdomen: Soft, morbidly obese, still generalized discomfort but no rebound or guarding, less distended, hyperactive BS. Extremities: No cyanosis, clubbing, or edema. Neurological: Patient is more alert, awake, interactive, oriented x 3 but does have likely some underlying chronic memory impairment suspected, cognitive function suspect likely at her baseline but still uncertain, pupils equally reactive to light and accommodation, cranial nerves grossly normal, moving all 4 extremities, no focal deficits, strength severely globally decreased. Psychiatric: Affect appears more interactive, less fatigued but does note ongoing abdominal cramping although currently does not appear in any severe pain, no acute evidence of depressive or anxiety feelings but does have chart reported previous history. Assessment & Plan Assessment/Plan (1) Acute upper GI bleed: (2) ABLA (acute blood loss anemia): (3) Hemorrhagic shock: (4) JENNIFER (acute kidney injury): PLAN: Plan The patient is a 68 y/o F w/ PMHx: Chronic anemia, Obesity, Chronic normocytic anemia, CKD stage II based on GFR trending, Anxiety and Depression/Bipolar disorder/ADHD, Fibromyalgia, History of Breast CA w/ chronic RUE lymphedema associated w/ LNDx/mastectomy w/ breast implant, Lupus who presents to the [facility] ED on 03/01/24 with history of ongoing persistent abdominal pain, constipation and general fatigue and malaise ongoing for at least the last 2 days prompting family to call EMS. In the ED patient with notably dark stool on guiac assessment. #1. Suspected Acute Encephalopathy versus component of chronic memory impairment of unclear etiology secondary to Acute shock suspected multifactorial including hemorrhagic and possibly septic but uncertain secondary to acutely suspected intra-abdominal infection with significant stool burden complicated by acute GI bleed with ABLA/on chronic anemia/Fe deficiency at unclear location w/ evidence of sepsis-induced organ dysfunction/tissue hypoperfusion and sepsis induced hypotension despite adequate fluid administration as evidenced by hypotension with MAP less than 65, significant lactic acidosis, acute kidney injury, hypoxia: Admitted to the ICU, continued family day carer consultation, maintained on IV Flagyl and ciprofloxacin given allergy, maintained on cardiac monitoring, continued to maintain on cardiac monitoring, continued IV fluids per 30 cc/kg IVF bolus, continued PRBC planned administration with 03/02/24 Hgb 7.2, continued GI and surgery consultations, PICC line requested but was not successful. 03/02/24 2 u PRBC ordered, will administer 1 unit given overnight SBP decreased and Hgb trending down. 03/02/2024 given PICC line unsuccessful will need to consider central line placement. #2. Acute kidney injury on CKD stage II per GFR trending deviously: Secondary to acute presentation as noted #1. Admission BUN/Cr 136/2.21, prior baseline creatinine noted to be 0.7-0.9. Continue hydration, continue PRBC ministration as noted, hold nephrotoxic medications. 03/02/24 BUN/creatinine 107/1.55, GFR 35, improving. #3. Acute transaminitis: Suspect secondary to shock, total bilirubin 0.0, AST/ALT 55/61, alk phos 145, continue evaluation treatment as noted above, 03/02/24 AST/LT 90/85, alk phos 193, trend CMP. #4. Hypokalemia: 03/02/24 K+ 2.7, supplementation given, recent 03/01/24 magnesium 4.1, repeat level in AM. #5. Hyperglycemia without diabetic history: Admission glucose 258, suspect likely stress response, 03/02/2024 hemoglobin A1c 5.2%. #6. History of breast cancer, unclear type: Status postmastectomy which appears bilateral with a right breast implant, chronic lymphedema right upper extremity with postulated lymph node dissection in this arm as etiology, considered in remission, encourage continued outpatient follow-up as previously arranged. #7. Anxiety and depression/bipolar disorder/ADHD: Will temporally hold psychiatric regimen especially given significant acute kidney injury, resume once clinically appropriate and renal function is resolved. Also given presentation with shock low threshold to hold a sedated medication regardless. #8. Lupus: Noted history, per current list does not appear to be on a medication regimen, attempting to clarify, encourage continued outpatient follow-up with rheumatology as previously arranged. #9. Restless leg syndrome: We will continue patient home Requip regimen. #10. DVT prophylaxis: SCDs. #11. CODE status: Patient does not have healthcare power of title attorney or living will in place but notes that she would want her caregiver to be her medical decision maker. Full Code status. Charges/Coding Visit Charges Inpatient E&M: 82403 Subs Hosp L3
[2024-03-02 06:38] LABS: ALB/GLOB Ratio 0.9 RATIO (0.9-2.4); AST(SGOT) 90 U/L (15-37); Alanine Aminotransfer ALT/SGPT 85 U/L (13-56); Albumin, Serum 2.1 g/dL (3.2-5.0); Alkaline Phosphatase 193 U/L (45-117); Anion Gap 7 (5-15); BUN 107 mg/dL (7-18); Calcium,Total 7.2 mg/dL (8.5-10.1); Chloride 124 mmol/L (98-107); Creatinine, Serum 1.55 mg/dL (0.55-1.02); EST Glomerular Filtration Rate 35 mL/min (>60); Est Glom Filt Rate - Afr Amer 43 mL/min (>60); Estimated Creatinine Clearance 32.02 ml/min; Globulin 2.4 g/dL (2.2-4.2); Glucose 205 mg/dL (74-106); Potassium 2.7 mmol/L (3.5-5.1); Protein, Total 4.5 g/dL (6.4-8.2); Sodium Level 145 mmol/L (136-145)
[2024-03-02 06:42] LABS: Differential Comment SCANNED
[2024-03-02] MEDS: Acetaminophen 325 MG Tablet 650 MG PO (07:01)
[2024-03-02] MEDS: Potassium Chloride Oral Soln 20 MEQ/15 ML UDC 60 MEQ PO (07:02)
[2024-03-02 07:42] LABS: Hemoglobin A1c 5.2 % (3.8-5.6)
[2024-03-02] MEDS: fentaNYL 100 MCG/2 ML Ampul 25 MCG IV (10:26)
[2024-03-02] MEDS: Menthol/Lanolin/Calamine/Znox 113 GM Tube 1 APPLIC TOPICAL ×2 (10:26→13:57)
--- NOTE | 2024-03-02 12:06 | RAD_ITS ---
INDICATION: central line placement EXAMINATION/TECHNIQUE: X-RAY - XR Chest 1 View COMPARISON: Left shoulder dated December 06, 2023 FINDINGS: LINES/DEVICES: There is a right-sided central venous catheter in place terminating within the expected region of the right axillary vein. LUNGS: No consolidation, edema or effusion. No pneumothorax. MEDIASTINUM AND CARDIOVASCULAR STRUCTURES: Cardiac silhouette not enlarged. Central airways and mediastinal contour are unremarkable. BONES AND SOFT TISSUES: There is a right proximal humeral prosthesis. There is a fracture again visualized within the visualized proximal left humerus. There is loss of the normal left humeral head. RAD/CXR for Line Placement IMPRESSION: Right-sided central venous catheter terminating within the expected region of the right axillary vein, recommend repositioning. No acute cardiopulmonary process. Electronically Signed: Carrol Raymond MD at 13:33 EST ,
--- NOTE | 2024-03-02 12:34 | PCM.HOSP.N ---
Hospitalist Note Central Line note: Patient with ongoing hypotension as well as poor IV access despite IV fluids as well as PRBC administration with MAP not maintaining >65, discussed with ICU staff and patient's with consent signed for central line placement to potentially initiate pressor therapy as well as have improved access. Right neck region prepped and draped in standard fashion. US guidance used to obtain access, guidewire threaded without issue, right IJ central line catheter placed over guidewire and wire removed w/ cap placed. Lines again drawn and flushed without difficulty. Central line sutured in place. CXR ordered and preliminary view in appropriate position with pending final radiology read. Procedures Hospitalists Procedures: [id number] Insert Non-tunnel CV Cath
[2024-03-02] MEDS: Ciprofloxacin 400 MG/200 ML BAG 200 MG IV (12:46)
--- NOTE | 2024-03-02 13:14 | CT_ITS ---
INDICATION: GI bleed EXAMINATION: CTA abdomen and pelvis - TECHNIQUE: Routine abdominal CT angiogram protocol was performed with IV contrast. MIP images provided. The protocol utilizes one or more of the following dose reduction techniques: automated exposure control, adjustment of mA and/or kV according to patient size,and/or use of iterative reconstruction technique. IV Contrast dosage and agent: 100 cc of Isovue-370 RADIATION DOSAGE (If Supplied By Facility): CTDIvol = ( 29.03 ) mGy, DLP = ( 1106.05 ) mGycm COMPARISON: No relevant prior comparison study available FINDINGS: Lung bases: Partially visualized left breast implant. Minimal stranding in the left lower lung could be due to scarring. No pleural effusions. Liver: Hepatic steatosis. Status post cholecystectomy. Spleen: Normal. Adrenal gland: Normal. Kidneys: Small cyst in the lower pole of the left kidney appears to be simple and no further follow-up exam is needed. No evidence of hydronephrosis. Pancreas:Normal. GI tract: Normal in caliber small bowel loops. Fecal retention. Thickening of the sigmoid and ascending colon which could be due to colitis. Unremarkable appendix. Peritoneum/retroperitoneum: No evidence of free air or free fluid. Pelvic organs: Kong catheter in the bladder. Distended urinary bladder. Air in the bladder presumably secondary to catheterization. Absent uterus consistent with previous hysterectomy. Bone survey: No aggressive bony lesions. No acute fractures. Adenopathy: No significant pathologic adenopathy detected. Vascular: Unremarkable abdominal aorta without evidence of aneurysm. Patent celiac axis, SMA, bilateral renal arteries and DOUGLAS without significant stenosis. Atherosclerotic calcifications of the common iliac arteries without evidence of stenosis. CT/CTA Abd/Pelvis W/WO Contrast IMPRESSION: Thickening of the sigmoid and descending colon concerning for colitis. Electronically Signed: Gil Haskins MD at 18:43 EST ,
--- NOTE | 2024-03-02 14:51 | PCM.PN.SRG ---
Subjective Subjective Patient denies any worsening abdominal pain today versus yesterday. In speaking with ICU nurse, it sounds as though the patient had several black stools within the past 24 hours. She is currently ordered additional PRBCs. CT angio also planned for today. IV access seems to be an issue as well. PICC line team to attempt access at the time of my visit Objective Data Objective Data Vital Signs: Vital Signs Temp Pulse Resp BP Pulse Ox O2 Del Method O2 Flow Rate 98.0 F 105 H 23 H 111/74 100 Nasal Cannula 2 03/02/24 13:00 03/02/24 14:00 03/02/24 14:00 03/02/24 14:00 03/02/24 14:00 03/02/24 14:00 03/02/24 14:00 Oxygen Flow Rate (L/min) 2 Oxygen Delivery Method Nasal Cannula Weight: 175 lb 14.862 oz Body Mass Index (BMI) 37.9 Intake & Output: Intake and Output for Last 24 Hours 02/29/24 03/01/24 03/02/24 23:59 23:59 23:59 Intake Total 4989 / 4989 969.34 / 969.34 Output Total 250 / 250 Balance 4989 / 4739 719.34 / 719.34 Lab / Micro Data 03/02/24 05:35 03/02/24 05:35 Labs: Laboratory Results - last 24 hr 03/01/24 07:13: Crossmatch See Detail 03/01/24 07:13: Crossmatch See Detail 03/01/24 17:20: Hgb 8.2 L, Hct 23.7 L 03/01/24 22:10: Hgb 7.8 L, Hct 22.9 L 03/02/24 05:35: WBC 25.4 H, RBC 2.30 L, Hgb 7.2 L, Hct 20.9 L, MCV 90.9 D, MCH 31.3, MCHC 34.4 D, RDW Std Deviation 45.1 H, RDW Coeff of Dano 14.8 H, Plt Count 298, MPV 10.6, Immature Gran % (Auto) 1.100 H, Neut % (Auto) 89.7 H, Lymph % (Auto) 5.1 L, [place] % (Auto) 3.9, Eos % (Auto) 0.0, Baso % (Auto) 0.2, Absolute Neuts (auto) 22.8 H, Absolute Lymphs (auto) 1.30, Nucleated RBC % 2.2, Differential Comment SCANNED, Sodium 145, Potassium 2.7 L*, Chloride 124 H, Carbon Dioxide 14.0 L, Anion Gap 7, BUN 107 H*, Creatinine 1.55 H, Estim Creat Clear Calc 32.02, Est GFR (MDRD) Af Amer 43 L, Est GFR (MDRD) Non-Af 35 L, BUN/Creatinine Ratio 69.0 H, Glucose 205 H, Hemoglobin A1c 5.2, Calcium 7.2 L, Total Bilirubin 0.40, AST 90 H, ALT 85 H, Alkaline Phosphatase 193 H, Total Protein 4.5 L, Albumin 2.1 L, Globulin 2.4, Albumin/Globulin Ratio 0.9 Micro: Microbiology 03/01/24 07:40 Blood Culture (Wb) - Anticubital Left Bacteria Detection (PCR) - Final Staphylococcus epidermidis mecA Resistance Marker 03/01/24 07:40 Blood Culture (Wb) - Anticubital Left Blood Culture - Preliminary 03/01/24 07:25 Stool Stool Occult Blood (PEGGY) - Final Occult Blood Positive Radiography Diagnostic Testing: Radiology Impression Chest X-Ray 03/02/24 12:06 IMPRESSION: Right-sided central venous catheter terminating within the expected region of the right axillary vein, recommend repositioning. No acute cardiopulmonary process. Electronically Signed: Carrol Raymond MD at 13:33 EST Reading Location ID and State: [facility] / [place] Tel , Service support , Physical Exam Narrative She is awake and alert. No acute distress. Abdomen is soft and obese. Mild diffuse tenderness to palpation Assessment & Plan Assessment/Plan (1) ABLA (acute blood loss anemia): PLAN: Plan Patient is a 68-year-old female with GI bleed of uncertain source. EGD performed yesterday was reportedly negative. Patient to undergo CTA to evaluate for any possible evidence of active bleeding and source. No immediate surgical plans. Will continue to follow. Charges/Coding Visit Charges Inpatient E&M: 70938 Subs Hosp L2
[2024-03-02 15:22] LABS: Hematocrit 20.6 % (37-47); Hemoglobin 6.9 g/dL (12.0-15.0)
--- NOTE | 2024-03-02 16:14 | DS.PCM_ITS ---
Providers Date of Admission: 03/01/24 Date of Discharge: 03/02/24 Primary Care Physician: Dr. Cass Daniels, Consultations 03/01/24 12:02 Consult: Gastroenterology Routine Consulting Provider: [facility] Reason for Consult: GI bleed, ABLA EMERGENT Consult: No MD Notified: Yes Date Notified: 03/01/24 Time Notified: 10:45 Method of Notification: ED Physician Initiated Consult: General Surgery Routine Consulting Provider: Renzo Martinez Reason for Consult: Shock, hemorrhagic, GI bleed, stool filled colon EMERGENT Consult: No MD Notified: Yes Date Notified: 03/01/24 Time Notified: 10:46 Method of Notification: Text Consult: Field Service Technician Poultry / Pulmonary Medicine Routine Consulting Provider: Intensivists/Pulmonary Med Reason for Consult: Shock, Hemorrhagic, GI bleed, ABLA EMERGENT Consult: No MD Notified: Yes Date Notified: 03/01/24 Time Notified: 10:46 Method of Notification: Text Reason For Visit: HEMORRHAAGIC SHOCK, UGIB, JENNIFER Diagnosis Discharge Diagnosis (1) ABLA (acute blood loss anemia): Status: Acute Code(s): D62 - Acute posthemorrhagic anemia Plan: DISCHARGE DIAGNOSES: #1. Acute Encephalopathy with possible underlying chronic component of memory impairment of unclear etiology secondary to Acute hemorrhagic shock, lower suspicion for sepsis (no source) secondary to Suspected Acute Upper GI bleed possible an efferent y limb s/p gastric bypass with ABLA on chronic anemia/Fe deficiency #2. Acute kidney injury on CKD stage II per GFR trending previously secondary to #1 #3. Acute transaminitis, secondary to #1 #4. Hypokalemia #5. Hyperglycemia without diabetic history (A1c 5.2%) #6. History of breast cancer, unclear type status postmastectomy with LNDx #7. Anxiety and depression/bipolar disorder/ADHD #8. Lupus #9. Restless leg syndrome #10. CODE status: Patient does not have healthcare power of cylinder handler or living will in place but notes that she would want her caregiver to be her medical decision maker. Patient requested Full Code status. Medications at Discharge Home Medications bupropion HCl 150 mg tablet,12 hr sustained-release 450 mg PO DAILY 12/06/23 carvedilol 6.25 mg tablet 6.25 mg PO BID 12/06/23 cephalexin 500 mg capsule 1,000 mg PO DAILY 12/06/23 clonazepam 2 mg tablet 2 mg PO TID PRN PRN sleep 12/06/23 ferrous sulfate 325 mg (65 mg iron) tablet (Feosol) 325 mg PO QODAY 12/06/23 loratadine 10 mg tablet (Claritin) 10 mg PO DAILY 12/06/23 mirtazapine 30 mg disintegrating tablet 30 mg PO QHS 12/06/23 oxycodone-acetaminophen 10 mg-325 mg tablet (Percocet) 1 tab PO Q6H PRN pain 5 days #20 tabs 12/06/23 pramipexole 0.25 mg tablet 0.25 mg PO BID 12/06/23 quetiapine 50 mg tablet,extended release 24 hr 50 mg PO DAILY 12/06/23 tizanidine 4 mg capsule (Zanaflex) 4 mg PO TID PRN muscle pain/spasm #30 caps 12/06/23 tizanidine 4 mg tablet 4 mg PO Q8H PRN 12/06/23 venlafaxine 150 mg capsule,extended release 24 hr 300 mg PO DAILY 12/06/23 Hospital Course Operations None Procedures Blood transfusion, Central line placement, EGD, EKG and PICC line placement Summary of Care Provided Minutes Spent on Discharge: 35 Hospital Course: The patient is a 68 y/o F w/ PMHx: Chronic anemia, Obesity, Chronic normocytic anemia, CKD stage II based on GFR trending, Anxiety and Depression/Bipolar disorder/ADHD, Fibromyalgia, History of Breast CA w/ chronic RUE lymphedema associated w/ LNDx/mastectomy w/ breast implant, Lupus who presented to the [facility] ED on 03/01/24 with history of ongoing persistent abdominal pain, constipation and general fatigue and malaise ongoing for at least the last 2 days prompting family to call EMS. In the ED patient with notably dark stool on guiac assessment. Workup in the ED included T96.5, heart rate 91, BP 100/86, respiratory rate 20, 96% on room air with transient BP decreased to 66/32 with most recent repeat vitals heart rate 78, BP 81/47, respiratory rate 20, and 1% on 3 L nasal cannula, CBC with WBC 36, hemoglobin 4.3, MCV 97.1, platelet 359 with significant left shift, CMP with chloride 110, At 15, BUN/creatinine 136/2.21, GFR 23, glucose 258, lactic acid 5.8, calcium 8.1, hepatic profile with T. bili 0.20, AST/LT 55/61, alk phos 145, lipase 61, CT abdomen and pelvis with moderate to large amount of stool throughout the colon distending the rectum, stool guaiac positive, blood culture x 2 pending per ED. in the ED patient administered Protonix bolus and started on drip, IV Flagyl and ciprofloxacin as well as 30 cc/kg IV fluid bolus for sepsis protocol and ended up receiving an additional amount for a total of 3 L in the ED with resulting following BPs with MAP slightly above 65 with also blood initiated in the ED. ED discussed case with Dr. [facility]. Unfortunately initially the patient was a very poor historian and much of her history was unknown including the fact that she had had a gastric bypass. Patient was transition to the endoscopy lab from the ED and upper endoscopy was performed with no obvious source of bleeding. Patient was transitioned to the ICU, received 4 u PRBC. PICC team attempted access unsuccessfully with notable ayptical upper chest anatomy s/p surgeries, possible radiation as well. Pressure stabilized following 3 L normal saline in the ED and PRBC that was initiated however blood pressures become soft again 03/01/2024 evening but improved following overnight albumin administration. 03/02/2024 patient hemoglobin started to trend downward to 7.2 with additional 1 unit PRBC initiated especially given soft blood pressures. Right IJ was attempted and procedure went well however follow-up final film with despite ease of placement and under ultrasound guidance noted to be in the likely axillary vein. PICC team contacted again and amenable to trial and the other side. Patient with persistent start of black tarry stools. Repeat 03/02/2024 1500 hemoglobin hemoglobin 6.9. 2 additional PRBC ordered. 03/02/2024 at 4:28 PM finally able to get at least midline. CT abdomen and pelvis with contrast/bleeding scan requested as discussed with GI and surgery and pending upon timeline of requested transfer. Most recent repeat labs BMP plata at 1500 with sodium 149, potassium 2.9, chloride 128, carbon oxide 16, anion gap 5, BUN/creat 96/1.31, GFR 43, glucose 235 with electrolyte protocol in the ICU in place. Given significant hypernatremia/hyperchloremia D5W initiated with repeat BMP requested in the evening. Given presentation and eventual understanding that patient had previously had a gastric bypass per recommendation of gastroenterology tertiary facility transfer requested secondary to concern for upper GI bleed from an efferent y limb which could likely only be accessed with a double-balloon enteroscopy, lap assisted enteroscopy or IR for possible AVM given history certainly a possibility of ulcer versus malignancy. Tertiary facility contacted for transfer and patient accepted by Dr. Calzada ICU Critical Care Team. Weight / BMI Weight Weight: 175 lb 14.862 oz Body Mass Index (BMI) 37.9 ABG / Lab / Microbiology Data 03/02/24 15:01 03/02/24 15:01 Laboratory: Laboratory Results - last 24 hr 03/01/24 07:13: Crossmatch See Detail 03/01/24 07:13: Crossmatch See Detail 03/01/24 07:13: Crossmatch See Detail 03/01/24 17:20: Hgb 8.2 L, Hct 23.7 L 03/01/24 22:10: Hgb 7.8 L, Hct 22.9 L 03/02/24 05:35: WBC 25.4 H, RBC 2.30 L, Hgb 7.2 L, Hct 20.9 L, MCV 90.9 D, MCH 31.3, MCHC 34.4 D, RDW Std Deviation 45.1 H, RDW Coeff of [place]ano 14.8 H, Plt Count 298, MPV 10.6, Immature Gran % (Auto) 1.100 H, Neut % (Auto) 89.7 H, Lymph % (Auto) 5.1 L, [place] % (Auto) 3.9, Eos % (Auto) 0.0, Baso % (Auto) 0.2, Absolute Neuts (auto) 22.8 H, Absolute Lymphs (auto) 1.30, Nucleated RBC % 2.2, Differential Comment SCANNED, Sodium 145, Potassium 2.7 L*, Chloride 124 H, C arbon Dioxide 14.0 L, Anion Gap 7, BUN 107 H*, Creatinine 1.55 H, Estim Creat Clear Calc 32.02, Est GFR (MDRD) Af Amer 43 L, Est GFR (MDRD) Non-Af 35 L, B UN/Creatinine Ratio 69.0 H, Glucose 205 H, Hemoglobin A1c 5.2, Calcium 7.2 L, Total Bilirubin 0.40, AST 90 H, ALT 85 H, Alkaline Phosphatase 193 H, Total Protein 4.5 L, Albumin 2.1 L, Globulin 2.4, Albumin/Globulin Ratio 0.9 03/02/24 15:01: Hgb 6.9 L, Hct 20.6 L, Sodium 149 H, Potassium 2.9 L, Chloride 128 H*, Carbon Dioxide 16.0 L, Anion Gap 5, BUN 96 H, Creatinine 1.31 H, Estim Creat Clear Calc 37.89, Est GFR (MDRD) Af Amer 52 L, Est GFR (MDRD) Non-Af 43 L, BUN/Creatinine Ratio 73.3 H, Glucose 235 H, Calcium 7.5 L Microbiology: Microbiology 03/01/24 07:40 Blood Culture (Wb) - Anticubital Left Bacteria Detection (PCR) - Final Staphylococcus epidermidis mecA Resistance Marker 03/01/24 07:40 Blood Culture (Wb) - Anticubital Left Blood Culture - Preliminary 03/01/24 07:25 Stool Stool Occult Blood (PEGGY) - Final Occult Blood Positive Radiography Diagnostic Testing: Radiology Impression Chest X-Ray 03/02/24 12:06 IMPRESSION: Right-sided central venous catheter terminating within the expected region of the right axillary vein, recommend repositioning. No acute cardiopulmonary process. Electronically Signed: Carrol Raymond MD at 13:33 EST , D/C Instructions DC O2, CPAP, BIPAP Needs Home O2 Discharge instructions: No Meaningful Use Info Meaningful Use Meaningful Use Diagnoses (Choose all that apply): None applicable Ischemic Stroke Statin Dosing Therapy Reference: STATIN DOSE THERAPY REFERENCE: * Patients > 75 years receive moderate or high dose statin therapy. * Patients 75 years or YOUNGER should receive HIGH intensity statin dose unless contraindicated. You will be required to document reason for non-treatment if statin daily dose does not meet guidelines. HIGH DOSE STATIN THERAPY DAILY Atorvastatin > than or = to 40 mg Rosuvastatin > than or = to 20 mg Amlodipine + Atorvastatin > than or = to 2.5/40 mg Ezetimibe + Simvastatin 10/80 mg Simvastatin 80mg Discharge Plan Admission Admit Date/Time: 03/01/24 10:45 Primary Reason for Your Visit: Hemorrhagic shock, ABLA, GI bleed, JENNIFER, Elevated LFTs, Encephalopathy Attending Provider: Natalie Box Primary Care Provider: Cass Daniels Consulting Providers: Renzo Martinez; Kota Sarmiento; Manuel Johnson; Adolfo Torres; Shahram Conley; Evan Taveras; Dominick Vásquez; Tyler Lizama; Sharla Abdi; Eder Gamez; Weslye Gonzalez; Harrison Bucio; Martha Carter; Rory Rose; Gabriele Vega; Jeromy Alexis; Devon Cotto; Sumeet Khanna; Stepan Vargas; Andrew Lackey; Maynor Lackey; Freddy Berrios Discharge Orders/Prescriptions Prescriptions: No Action bupropion HCl 150 mg tablet sustained-release 12 hr 450 mg PO DAILY carvedilol 6.25 mg tablet 6.25 mg PO BID venlafaxine 150 mg capsule,extended release 24hr 300 mg PO DAILY ferrous sulfate [Feosol] 325 mg (65 mg iron) tablet 325 mg PO QODAY quetiapine 50 mg tablet extended release 24 hr 50 mg PO DAILY tizanidine 4 mg tablet 4 mg PO Q8H PRN loratadine [Claritin] 10 mg tablet 10 mg PO DAILY cephalexin 500 mg capsule 1,000 mg PO DAILY pramipexole 0.25 mg tablet 0.25 mg PO BID mirtazapine 30 mg tablet,disintegrating 30 mg PO QHS clonazepam 2 mg tablet 2 mg PO TID PRN PRN (Reason: sleep) tizanidine [Zanaflex] 4 mg capsule 4 mg PO TID PRN (Reason: muscle pain/spasm) Qty: 30 0RF oxycodone-acetaminophen [Percocet] 10-325 mg tablet 1 tab PO Q6H PRN (Reason: pain) 5 Days Qty: 20 0RF Referrals / Follow Up: Cass Daniels, [Primary Care Provider] - Disposition Disposition (needs filled in before D/C Order can be placed): Acute Care Hospital Charges/Coding Visit Charges Inpatient E&M: 99705 Disch Hosp >30min
[2024-03-02 16:18] LABS: Anion Gap 5 (5-15); BUN 96 mg/dL (7-18); BUN/Creat Ratio 73.3 RATIO (10-20); Calcium,Total 7.5 mg/dL (8.5-10.1); Chloride 128 mmol/L (98-107); Creatinine, Serum 1.31 mg/dL (0.55-1.02); EST Glomerular Filtration Rate 43 mL/min (>60); Est Glom Filt Rate - Afr Amer 52 mL/min (>60); Estimated Creatinine Clearance 37.89 ml/min; Glucose 235 mg/dL (74-106); Potassium 2.9 mmol/L (3.5-5.1); Sodium Level 149 mmol/L (136-145)
[2024-03-02] MEDS: Dextrose 5%-Water (1000mL Bag) 1,000 ML 100 ML IV (17:12)
[2024-03-02] MEDS: Potassium Chloride 10mEq/100mL 10 MEQ/100 ML IV.SOLN. 100 MEQ IV BOLUS ×2 (17:15→18:20)
[2024-03-04 08:40] LABS: Pathologist Review Reviewed
== END 2024-03-02 20:05 | disposition short-term general hospital (02) | DRG 377 ==
LOC: ED 09:03 → ICU 10:15
PROVIDERS: Internal Medicine Gastroenterology; Admitting Provider Family Medicine; Emergency Provider Emergency Medicine; PCP Family Medicine; Visit Provider Family Medicine
PROC: 0DJ08ZZ Inspection of Upper Intestinal Tract, Via Natural or Artificial Opening Endoscopic (ICD-10-PCS; CPT 43235; principal; 2024-03-01 10:25)
DX: K92.2 Gastrointestinal hemorrhage, unspecified (principal); R57.8 Other shock; G93.40 Encephalopathy, unspecified; Z68.41 Body mass index [BMI] 40.0-44.9, adult; N17.9 Acute kidney failure, unspecified; D62 Acute posthemorrhagic anemia; F31.9 Bipolar disorder, unspecified; M32.9 Systemic lupus erythematosus, unspecified; G25.81 Restless legs syndrome; D50.9 Iron deficiency anemia, unspecified; E66.01 Morbid (severe) obesity due to excess calories; K59.00 Constipation, unspecified; F41.9 Anxiety disorder, unspecified; E87.6 Hypokalemia; M79.7 Fibromyalgia; N18.2 Chronic kidney disease, stage 2 (mild); F90.9 Attention-deficit hyperactivity disorder, unspecified type; R73.9 Hyperglycemia, unspecified; R74.01 Elevation of levels of liver transaminase levels; Z79.899 Other long term (current) drug therapy; Z98.84 Bariatric surgery status
CPT/HCPCS: 36415; 71045; 74174; 74176; 80048; 80053; 82274; 83036; 83605; 83690; 83735; 84100; 85014; 85018; 85025; 85610; 85730; 86850; 86900; 86901; 86920; 86922; 87040; 87086; 87149; 87186; 93005; 94668; 94762; 99285; P9016; P9047; Q9967; A4216; C1751; J0744; J2405

== ENCOUNTER 2024-05-06 10:30 | Outpatient (RCR) | payer MEDICARE, SELFPAY ==
[2024-04-27 09:28] VITALS: BP 136/62; PULSE 113; RESP 18; TEMP 36.6
--- NOTE | 2024-04-27 11:21 | PCM.WC.HP ---
History of Present Illness Date of Service: 04/27/24 Chief Complaint: Follow-up surgical abdominal wound nonhealing History of Wound: 68-year-old white female who in February developed a GI bleed that turned into ischemic colon. 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 Apparently the bleeding was so intense that they had to do a laparotomy which did not heal well and they left her open and were using a wound VAC at the hospital. Eventually the wound VAC got removed and never replaced like it was supposed to. At this point it is still open to tendon with positive depth looks clean no odor. Beefy red skin in the wound base. Bleeds easily with debridement. Currently taking Keflex daily 1000 mg and developed a urinary tract infection at the long-term where she was staying for few days and they had her on Macrobid and now she is to start tetracycline. Patient is now staying with a nurse at her house for home health care. She still extremely weak and anemic she appears still sallow in color. And does transfer self from wheelchair to bed and bath. [facility] Medical History CKD (chronic kidney disease), stage II RLS (restless legs syndrome) Allergic rhinitis Anxiety and depression Iron deficiency Chronic anemia Lupus Fibromyalgia ADHD Bipolar 1 disorder Hx of breast cancer Lymphedema of right arm Home Medications ?Medication ?Instructions ?Recorded ?Last Taken ?Type bupropion HCl 150 mg tablet,12 hr 450 mg PO DAILY 12/06/23 Unknown History sustained-release carvedilol 6.25 mg tablet 6.25 mg PO BID 12/06/23 Unknown History cephalexin 500 mg capsule 1,000 mg PO DAILY 12/06/23 Unknown History clonazepam 2 mg tablet 2 mg PO TID PRN PRN sleep 12/06/23 Unknown History ferrous sulfate 325 mg (65 mg 325 mg PO QODAY 12/06/23 Unknown History iron) tablet (Feosol) loratadine 10 mg tablet (Claritin) 10 mg PO DAILY 12/06/23 Unknown History mirtazapine 30 mg disintegrating 30 mg PO QHS 12/06/23 Unknown History tablet oxycodone-acetaminophen 10 mg-325 1 tab PO Q6H PRN pain 5 days #20 12/06/23 Unknown Rx mg tablet (Percocet) tabs pramipexole 0.25 mg tablet 0.25 mg PO BID 12/06/23 Unknown History quetiapine 50 mg tablet,extended 50 mg PO DAILY 12/06/23 Unknown History release 24 hr tizanidine 4 mg capsule (Zanaflex) 4 mg PO TID PRN muscle pain/spasm 12/06/23 Unknown Rx #30 caps tizanidine 4 mg tablet 4 mg PO Q8H PRN 12/06/23 Unknown History venlafaxine 150 mg 300 mg PO DAILY 12/06/23 Unknown History capsule,extended release 24 hr Allergy/AdvReac Type Severity Reaction Status Date / Time budesonide (From Pulmicort) Allergy Anaphylaxis Verified 03/01/24 05:11 Penicillins Allergy Hives Verified 03/01/24 05:11 Sulfa (Sulfonamide Allergy Rash Verified 03/01/24 05:11 Antibiotics) Family History Mother Valvular heart disease Heart disease Father Alzheimer dementia Family History unable to obtain Surgical History S/P gastric bypass Status post total bilateral knee replacement S/P hysterectomy S/P shoulder surgery S/P cataract extraction History of tonsillectomy Hx of cholecystectomy Social History household members: other details: Reports living with a caregiver. Smoking Status: Never smoker alcohol intake: never substance use type: does not use ROS Constitutional Constitutional: Reports systems reviewed and no addt'l complaints, except as documented Eyes Eyes: Reports systems reviewed and no addt'l complaints, except as documented ENT HEENT: Reports systems reviewed and no addt'l complaints, except as documented Cardiovascular Cardiovascular: Reports systems reviewed and no addt'l complaints, except as documented Respiratory/Chest Respiratory/Chest: Reports systems reviewed and no addt'l complaints, except as documented Gastrointestinal Gastrointestinal: Reports abdominal pain; Denies constipation, diarrhea, dyspepsia, hematemesis, hematochezia, melena, nausea or vomiting Genitourinary Genitourinary: Reports systems reviewed and no addt'l complaints, except as documented Musculoskeletal Musculoskeletal: Reports systems reviewed and no addt'l complaints, except as documented Integumentary Integumentary: Reports other Details: Laparotomy open wound mid abdomen Neurologic Neurologic: Reports systems reviewed and no addt'l complaints, except as documented Psychiatric Psychiatric: Reports systems reviewed and no addt'l complaints, except as documented Endocrine Endocrinology: Reports systems reviewed and no addt'l complaints, except as documented Hematologic/Lymphatic Hematologic/Lymphatic: Reports systems reviewed and no addt'l complaints, except as documented Allergic/Immunologic Allergic/Immunologic: Reports systems reviewed and no addt'l complaints, except as documented Vital Signs Vital Signs Vital Signs: 04/27/24 09:28 Temperature 98 F Temperature Source Temporal Pulse Rate 113 H Respiratory Rate 18 Blood Pressure 136/62 H Blood Pressure Mean 86 Blood Pressure Source Monitor Blood Pressure Position Supine Blood Pressure Location Right Leg Physical Exam Const oriented x3 General Appearance: cooperative, disheveled, appears older than stated age and other Pale and sallow Orientation / Consciousness: awake Exam Limitations: no limitations Nutritional Appearance: cachectic HEENT normocephalic Face and Sinus: normal facial exam External Ear: external ears normal Teeth and Gingiva: poor dentition Eyes PERRL and EOMs intact bilaterally; Negative for conjunctivae normal Eyes Narrative: Conjunctiva pale General Eye: normal appearance of both eyes Neck full ROM General: normal visual inspection Carotids: normal carotid upstroke Resp normal respiratory effort Effort and Inspection: able to speak in complete sentences Auscultation: clear to auscultation bilaterally Cardio regular rate and regular rhythm Palpation: normal PMI Rate: tachycardic Rhythm: regular rhythm GI GI Narrative: Colostomy in the right upper quadrant Palpation: soft, tender and guarding no CVA tenderness Extremity normal to inspection General Extremity: normal exam except as noted Skin Wounds: wounds noted Wound Narrative: Open laparotomy from March 02 never closed tendons open and visible Neuro oriented x3 Psych Appearance: grossly normal Speech: normal speech Thought Content: normal thought content Judgement: judgement good Debridement Note Debridement Note Wound debrided: Surgical wound mid abdomen laparotomy Type of Debridement: Excisional debridement Anesthesia Used: 5% Lidocaine Gel Depth: in the subcutaneous layer and to muscle Percentage of wound debrided: 100 Instrument Used: 5mm curette Tissue Removed: Fibrin Severity: Fat Layer Exposed Amount of bleeding with debridement: Mild Bleeding Controlled with: Compression and gauze Patient tolerated procedure: Patient tolerated procedure well Post-Debridement Measurements and Additional Note: Post-Debridement Measurements/Treatment WC - Nurse 1 - General Ulcer Assessment Start: 04/27/24 09:18 Freq: Status: Active Protocol: NASIMA Activity Type Activity Date Activity User E-sign Co-sign Detail Recorded Client Recorded Date Recorded By Document 04/27/24 09:28 [place] [id number] 04/27/24 09:34 [place] 04/27/24 09:28 - Today's Visit Information Type of service 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 ) Arrival Mode Ambulatory Patient Identification Verified (Name & Yes ) Safety Precautions Fall Prevention Vital Signs Temperature (97.8 F-99.1 F) 98 F Temperature Source Temporal Pulse Rate (60-100) 113 H Pulse Location Monitor Respiratory Rate (12-18) 18 Respiratory rate source Observation Blood Pressure (90/60-120/80) 136/62 H Blood Pressure Mean 86 Source Monitor Position Supine Blood Pressure Location Right Leg History Since Last Visit- (Skip if this is Patient's initial visit) Has dressing in place as prescribed Yes Has compression in place as prescribed Yes Has offloadiing in place as prescribed Yes Experienced any changes in pain level or Yes management Left Footwear Regular Shoe Right Footwear Regular Shoe Pain Scale: 0-10 Numeric Is Patient Pain Free? Yes - Nurse 1 - General Ulcer Measurement Start: 04/27/24 09:18 Freq: Status: Active Protocol: Activity Type Activity Date Activity User E-sign Co-sign Detail Recorded Client Recorded Date Recorded By Document 04/27/24 09:28 [place] [id number] 04/27/24 09:34 [place] 04/27/24 09:28 Wound Center Nurse 1 #1 Abdominal -Current Size (cm) - Length 13 -Current Size (cm) - Width 2.5 -Current Size (cm) - Depth 3.0 -Total Square Cm 32.5 -Date of Last Picture (Recall this 04/27/24 field) -Photo Taken Yes -Tunneling No -Undermining/Tunneling No -Circular Undermining No -Exudate Amt Medium -Exudate Type Serosanguineous -Wound Margin Thickened & Rolled Under -Granulation Amt Large (67-100%) -Granulation Quality Pale,Cavalero -Necrosis Amt Small (1-33%) -Necrotic Tissue Type Adherent Slough -Texture (Harriett-wound Skin Appearance) Assessed -Moisture (Harriett-wound Skin Appearance) Assessed -Color (Harriett-wound Skin Appearance) Assessed -Temperature (Harriett-wound Skin No Abnormality Appearance) (Pt Warm) -Tenderness on Palpation (Harriett-wound No Skin Appearance) -Ulcer Cleansing Soap and Water -Foul Odor after Cleansing No -Anesthetic Used 5% Lidocaine Gel Lower Limb Edema Present NA - Nurse 2 - General Ulcer CM Notes Start: 04/27/24 09:18 Freq: Status: Active Protocol: Activity Type Activity Date Activity User E-sign Co-sign Detail Recorded Client Recorded Date Recorded By Document 04/27/24 09:46 [facility] [id number] 04/27/24 10:06 [facility] 04/27/24 09:46 Wound Center Nurse 2 #1 Abdominal -Time 09:47 -Correct Patient Yes -Correct Side, Site, Position Yes -Correct Procedure Yes -Procedure Performed Yes -Type of Procedure Debridement -Clinical Debridement Muscle / Fascia -Tissue Removed Muscle,Fascia -Post Debridement (cm) - Length 12.9 -Post Debridement (cm) - Width 2.5 -Post Debridement (cm) - Depth 2.2 -Total Square (Post) (cm) 32.25 -Area of Debridement (cm) - Length 12.9 -Area of Debridement (cm) - Width 2.5 -Total Square (Area) (cm) 32.25 -Tunneling No -Undermining/Tunneling No -Circular Undermining No -Wound/Ulcer Outcome Not Healed -Ulcer Cleansing Rinsed/ Irrigated with Saline -Foul Odor after Cleansing No -Bioengineered Tissue No -Bleeding Controlled with Pressure -Treatment Response Procedure Tolerated Well -Debridement - Muscle / Fascia, 1st Yes 20sq cm -Debridement, Muscle/Fascia, ea addt'l 1 20sq cm or part thereof Pain Scale: 0-10 Numeric Is Patient Pain Free? Yes - Nurse 3 - General Ulcer D/C NN Start: 04/27/24 09:18 Freq: Status: Active Protocol: Activity Type Activity Date Activity User E-sign Co-sign Detail Recorded Client Recorded Date Recorded By Document 04/27/24 10:29 [place] [id number] 04/27/24 10:35 [place] 04/27/24 10:29 Wound Care Center Nurse 3 #1 Abdominal -Ulcer Cleansing Soap and Water -Foul Odor after Cleansing No -Negative Pressure Wound Therapy N/A -Other Dressing ABD -Primary Dressing Covered/Secured with Dry Gauze, Secured with Tape Pain Scale: 0-10 Numeric Is Patient Pain Free? Yes WC - Visit Discharge Discharge Condition Stable Ambulatory Status Wheelchair Transportation Private Auto Medication Reconcilliation completed & No provided to patient/care provider Clinical Summary of Care Provided Yes Lab / Micro Data 04/27/24 11:35 04/27/24 11:35 Assessment/Plan Assessment/Plan (1) Nonhealing surgical wound: CODE(S): T81.89XA - Other complications of procedures, not elsewhere classified, initial encounter QUALIFIERS: Encounter type: initial encounter Qualified Code(s): T81.89XA - Other complications of procedures, not elsewhere classified, initial encounter (2) Chronic abdominal wound infection: CODE(S): S31.109A - Unspecified open wound of abdominal wall, unspecified quadrant without penetration into peritoneal cavity, initial encounter; L08.9 - Local infection of the skin and subcutaneous tissue, unspecified QUALIFIERS: Encounter type: initial encounter Qualified Code(s): S31.109A - Unspecified open wound of abdominal wall, unspecified quadrant without penetration into peritoneal cavity, initial encounter; L08.9 - Local infection of the skin and subcutaneous tissue, unspecified PLAN: Wound cultures obtained will call with results (3) Dehiscence of laparotomy wound: CODE(S): T81.321A - Disruption or dehiscence of closure of internal operation (surgical) wound of abdominal wall muscle or fascia, initial encounter PLAN: Wash wound with antibacterial soap and water then using Dakin's wet to dry gauze dressings with ABD pad over top Ordered wound VAC 150 mmHg. Patient is to bring in next week when she gets the wound VAC order sent to home follow-up in 1 week (4) Anemia: CODE(S): D64.9 - Anemia, unspecified QUALIFIERS: Anemia type: other cause Other causes of anemia: acute posthemorrhagic Qualified Code(s): D62 - Acute posthemorrhagic anemia PLAN: Lab work ordered CBC CMP prealbumin vitamin B12 and vitamin D (5) Malnutrition: CODE(S): E46 - Unspecified protein-calorie malnutrition QUALIFIERS: Malnutrition type: protein-calorie malnutrition Protein-calorie malnutrition severity: moderate Qualified Code(s): E44.0 - Moderate protein-calorie malnutrition PLAN: Will evaluate labs next week Patient is encouraged to use Luis 60 g of protein per day
--- NOTE | 2024-04-27 14:32 | WC ---
PHOTO 04/27/24 Abdomen #1 Initial
[2024-04-27 15:35] LABS: Hematocrit 34.4 % (37-47); Hemoglobin 10.3 g/dL (12.0-15.0); Mean Corp Hgb Conc 29.9 g/dL (32-36); Mean Corpuscular Volume 90.1 fL (81-99); Mean Platelet Vol. 9.9 fl (6.2-12.0); Platelet Count 616 K/mm3 (150-450); RBC Distribution Width SD 53.3 fl (35.1-43.9); Red Blood Count 3.82 M/mm3 (4.2-5.4); White Blood Count 11.2 K/mm3 (4.4-11.0)
[2024-04-27 16:17] LABS: ALB/GLOB Ratio 0.4 RATIO (0.9-2.4); AST(SGOT) 46 U/L (15-37); Alanine Aminotransfer ALT/SGPT 25 U/L (13-56); Albumin, Serum 2.2 g/dL (3.2-5.0); Alkaline Phosphatase 193 U/L (45-117); Anion Gap 10 (5-15); BUN 13 mg/dL (7-18); BUN/Creat Ratio 20.5 RATIO (10-20); Calcium,Total 8.8 mg/dL (8.5-10.1); Chloride 107 mmol/L (98-107); Creatinine, Serum 0.64 mg/dL (0.55-1.02); EST Glomerular Filtration Rate 99 mL/min (>60); Est Glom Filt Rate - Afr Amer 119 mL/min (>60); Globulin 5.5 g/dL (2.2-4.2); Glucose 89 mg/dL (74-106); Potassium 3.7 mmol/L (3.5-5.1); Protein, Total 7.7 g/dL (6.4-8.2); Sodium Level 138 mmol/L (136-145)
[2024-04-28 14:25] LABS: Vitamin B12 677 pg/mL (211-911); Vitamin D,25 Hydroxy 43.5 ng/mL
[2024-04-29 05:07] LABS: Prealbumin 9 mg/dL (10-36)
[2024-05-04 10:11] VITALS: BP 136/54; PULSE 113; RESP 20; TEMP 36.9
--- NOTE | 2024-05-04 12:10 | PN.PCM_ITS ---
History of Present Illness Date of Service: 05/04/24 Chief Complaint: Follow-up surgical abdominal wound nonhealing History of Wound: 68-year-old white female who in February developed a GI bleed that turned into ischemic colon. 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 Apparently the bleeding was so intense that they had to do a laparotomy which did not heal well and they left her open and were using a wound VAC at the hospital. Eventually the wound VAC got removed and never replaced like it was supposed to. At this point it is still open to tendon with positive depth looks clean no odor. Beefy red skin in the wound base. Bleeds easily with debridement. Currently taking Keflex daily 1000 mg and developed a urinary tract infection at the skilled nursing where she was staying for few days and they had her on Macrobid and now she is to start tetracycline. Patient is now staying with a nurse at her house for home health care. She still extremely weak and anemic she appears still sallow in color. And does transfer self from wheelchair to bed and bath. Progress of Wound: The wound VAC was not gotten yet because her insurance company does not work with [employer] we will have to go through another company. So it will probably be another week before we can get the wound VAC going. The wound is measurements are smaller and is becoming more shallow looks very good still beefy and stable. Cultures came back all the rare bacteria with no cocci's. Will continue to try to get a wound VAC in the meantime we will continue the wet-to-dry we also will apply for EpiFix and try closing it with EpiFix. Went over labs with patient and her malnutrition is probably the most important thing with her anemia she is to continue taking iron tablets and continue increasing her protein intake. Patient is becoming stronger and can move around more which is good she needs to move around and walk. Subjective Subjective Patient is very pleased with outcomes and will follow-up in 2 weeks Objective Data Objective Data As stated above the wound base is stable it is beefy red itched more shallow measurements are smaller but the tendons are still visible we need to cover them so we will get her going on EpiFix to try to cover and close along with the wound VAC from a different company. Vital Signs: Vital Signs Temp Pulse Resp BP 98.5 F 113 H 20 H 136/54 H 05/04/24 10:11 05/04/24 10:11 05/04/24 10:11 05/04/24 10:11 Lab / Micro Data Attestation: I reviewed the patient's lab results. 04/27/24 11:35 04/27/24 11:35 Labs: Shows anemia and malnutrition Micro: Microbiology 04/27/24 10:00 Wound - Abdominal Gram Stain - Final 04/27/24 10:00 Wound - Abdominal Wound Culture - Final Rothia kristinae Escherichia coli Enterococcus faecalis 04/27/24 10:00 Wound - Abdominal Anaerobic Culture - Final No anaerobic bacteria isolated. Physical Exam Const oriented x3 General Appearance: cooperative, disheveled, appears older than stated age and other Pale and sallow Orientation / Consciousness: awake Exam Limitations: no limitations Nutritional Appearance: cachectic HEENT normocephalic Face and Sinus: normal facial exam External Ear: external ears normal Teeth and Gingiva: poor dentition Eyes PERRL and EOMs intact bilaterally; Negative for conjunctivae normal Eyes Narrative: Conjunctiva pale General Eye: normal appearance of both eyes Neck full ROM General: normal visual inspection Carotids: normal carotid upstroke Resp normal respiratory effort Effort and Inspection: able to speak in complete sentences Auscultation: clear to auscultation bilaterally Cardio regular rate and regular rhythm Palpation: normal PMI Rate: tachycardic Rhythm: regular rhythm GI GI Narrative: Colostomy in the right upper quadrant Palpation: soft, tender and guarding no CVA tenderness Extremity normal to inspection General Extremity: normal exam except as noted Skin Wounds: wounds noted Wound Narrative: Open laparotomy from March 02 never closed tendons open and visible Neuro oriented x3 Psych Appearance: grossly normal Speech: normal speech Thought Content: normal thought content Judgement: judgement good Debridement Note Debridement Note Wound debrided: Surgical wound mid abdomen laparotomy Type of Debridement: Excisional debridement Anesthesia Used: 5% Lidocaine Gel Depth: in the subcutaneous layer and to muscle Percentage of wound debrided: 100 Instrument Used: 5mm curette Tissue Removed: Fibrin Severity: Fat Layer Exposed Amount of bleeding with debridement: Mild Bleeding Controlled with: Compression and gauze Patient tolerated procedure: Patient tolerated procedure well Post-Debridement Measurements and Additional Note: Post-Debridement Measurements/Treatment WC - Nurse 1 - General Ulcer Assessment Start: 04/27/24 09:18 Freq: Status: Active Protocol: NASIMA Activity Type Activity Date Activity User E-sign Co-sign Detail Recorded Client Recorded Date Recorded By Document 04/27/24 09:28 SC [id number] 04/27/24 09:34 MT Document 05/04/24 10:11 DL [id number] 05/04/24 10:18 DL 04/27/24 05/04/24 09:28 10:11 - Today's Visit Information Type of service Follow-up Visit Follow-up Visit (Physician/AIR INTERCEPT CONTROLLER SUPERVISOR (Physician/AIR INTERCEPT CONTROLLER SUPERVISOR ) ) Arrival Mode Ambulatory Wheelchair Transfer Assistance Manual Transfer Assist (Other) x1 Patient Identification Verified (Name & Yes Yes ) Patient Requires Transmission-Based No Precautions Safety Precautions Fall Prevention Vital Signs Temperature (97.8 F-99.1 F) 98 F 98.5 F Temperature Source Temporal Temporal Pulse Rate (60-100) 113 H 113 H Pulse Location Monitor Monitor Respiratory Rate (12-18) 18 20 H Respiratory rate source Observation Observation Blood Pressure (90/60-120/80) 136/62 H 136/54 H Blood Pressure Mean (mm Hg) 86 81 Source Monitor Monitor Position Supine Blood Pressure Location Right Leg History Since Last Visit- (Skip if this is Patient's initial visit) Have you changed medications since your No last visit? Any new allergies or adverse reactions No Had a fall/change in ADL's that may No increase risk of falls Signs or symptoms of abuse and/or No neglect since last visit Have you been in the hospital since your No last visit? Has dressing in place as prescribed Yes Yes Has compression in place as prescribed Yes N/A Has offloadiing in place as prescribed Yes N/A Experienced any changes in pain level or Yes No management Left Footwear Regular Shoe Right Footwear Regular Shoe Pain Scale: 0-10 Numeric Is Patient Pain Free? Yes Yes - Nurse 1 - General Ulcer Measurement Start: 04/27/24 09:18 Freq: Status: Active Protocol: Activity Type Activity Date Activity User E-sign Co-sign Detail Recorded Client Recorded Date Recorded By Document 04/27/24 09:28 MT [id number] 04/27/24 09:34 MT Document 05/04/24 10:11 DL [id number] 05/04/24 10:18 DL 04/27/24 05/04/24 09:28 10:11 Wound Center Nurse 1 #1 Abdominal -Current Size (cm) - Length 13 12 -Current Size (cm) - Width 2.5 2 -Current Size (cm) - Depth 3.0 1.8 -Total Square Cm 32.5 24 -Date of Last Picture (Recall this 04/27/24 field) -Photo Taken Yes Yes -Tunneling No -Undermining/Tunneling No -Circular Undermining No -Exudate Amt Medium Medium -Exudate Type Serosanguineous Serosanguineous -Wound Margin Thickened & Distinct, Rolled Under Outline Attached -Granulation Amt Large (67-100%) Large (67-100%) -Granulation Quality Pale,[place] Red -Necrosis Amt Small (1-33%) Small (1-33%) -Necrotic Tissue Type Adherent Slough Adherent Slough -Structure Exposed N/A -Texture (Harriett-wound Skin Appearance) Assessed Scarring -Moisture (Harriett-wound Skin Appearance) Assessed No Abnormality -Color (Harriett-wound Skin Appearance) Assessed No Abnormality -Temperature (Harriett-wound Skin No Abnormality No Abnormality Appearance) (Pt Warm) (Pt Warm) -Tenderness on Palpation (Harriett-wound No No Skin Appearance) -Ulcer Cleansing Soap and Water Soap and Water -Foul Odor after Cleansing No No -Anesthetic Used 5% Lidocaine 4% Lidocaine Gel Solution Lower Limb Edema Present NA WC - Nurse 2 - General Ulcer CM Notes Start: 04/27/24 09:18 Freq: Status: Active Protocol: Activity Type Activity Date Activity User E-sign Co-sign Detail Recorded Client Recorded Date Recorded By Document 04/27/24 09:46 [facility] [id number] 04/27/24 10:06 [facility] Document 05/04/24 10:31 [facility] [id number] 05/04/24 10:46 [facility] 04/27/24 05/04/24 09:46 10:31 Wound Center Nurse 2 #1 Abdominal -Time 09:47 10:35 -Correct Patient Yes Yes -Correct Side, Site, Position Yes Yes -Correct Procedure Yes Yes -Procedure Performed Yes Yes -Type of Procedure Debridement Debridement -Clinical Debridement Muscle / Fascia Muscle / Fascia -Tissue Removed Muscle,Fascia Muscle,Fascia -Post Debridement (cm) - Length 12.9 12.5 -Post Debridement (cm) - Width 2.5 1.9 -Post Debridement (cm) - Depth 2.2 1.7 -Total Square (Post) (cm) 32.25 23.75 -Area of Debridement (cm) - Length 12.9 12.5 -Area of Debridement (cm) - Width 2.5 1.9 -Total Square (Area) (cm) 32.25 23.75 -Tunneling No No -Undermining/Tunneling No No -Circular Undermining No No -Wound/Ulcer Outcome Not Healed Not Healed -Ulcer Cleansing Rinsed/ Rinsed/ Irrigated with Irrigated with Saline Saline -Foul Odor after Cleansing No No -Bioengineered Tissue No No -Bleeding Controlled with Pressure Pressure -Treatment Response Procedure Procedure Tolerated Well Tolerated Well -Debridement - Muscle / Fascia, 1st Yes Yes 20sq cm -Debridement, Muscle/Fascia, ea addt'l 1 1 20sq cm or part thereof Pain Scale: 0-10 Numeric Is Patient Pain Free? Yes Yes - Nurse 3 - General Ulcer D/C NN Start: 04/27/24 09:18 Freq: Status: Active Protocol: Activity Type Activity Date Activity User E-sign Co-sign Detail Recorded Client Recorded Date Recorded By Document 04/27/24 10:29 SC [id number] 04/27/24 10:35 SC Document 05/04/24 11:03 SC [id number] 05/04/24 11:04 SC 04/27/24 05/04/24 10:29 11:03 Wound Care Center Nurse 3 #1 Abdominal -Ulcer Cleansing Soap and Water -Foul Odor after Cleansing No -Negative Pressure Wound Therapy N/A -Other Dressing ABD -Primary Dressing Covered/Secured with Dry Gauze, Secured with Tape Pain Scale: 0-10 Numeric Is Patient Pain Free? Yes Yes - Visit Discharge Discharge Condition Stable Stable Ambulatory Status Wheelchair Ambulatory Transportation Private Auto Private Auto Medication Reconcilliation completed & No No provided to patient/care provider Clinical Summary of Care Provided Yes Yes Notes: sent home new bottle of dakins #1 Abdominal -Ulcer Cleansing Soap and Water -Foul Odor after Cleansing No -Negative Pressure Wound Therapy N/A -Other Dressing abd -Primary Dressing Covered/Secured with Dry Gauze, Secured with Tape -Hysept 1 Assessment/Plan Assessment/Plan (1) Nonhealing surgical wound: CODE(S): T81.89XA - Other complications of procedures, not elsewhere classified, initial encounter QUALIFIERS: Encounter type: initial encounter Qualified Code(s): T81.89XA - Other complications of procedures, not elsewhere classified, initial encounter (2) Chronic abdominal wound infection: CODE(S): S31.109A - Unspecified open wound of abdominal wall, unspecified quadrant without penetration into peritoneal cavity, initial encounter; L08.9 - Local infection of the skin and subcutaneous tissue, unspecified QUALIFIERS: Encounter type: initial encounter Qualified Code(s): S31.109A - Unspecified open wound of abdominal wall, unspecified quadrant without penetration into peritoneal cavity, initial encounter; L08.9 - Local infection of the skin and subcutaneous tissue, unspecified PLAN: Wound cultures obtained will call with results (3) Dehiscence of laparotomy wound: CODE(S): T81.321A - Disruption or dehiscence of closure of internal operation (surgical) wound of abdominal wall muscle or fascia, initial encounter PLAN: Wash wound with antibacterial soap and water then using Dakin's wet to dry gauze dressings with ABD pad over top Ordered wound VAC 150 mmHg. Patient is to bring in next week when she gets the wound VAC order sent to home follow-up in 2 week (4) Anemia: CODE(S): D64.9 - Anemia, unspecified QUALIFIERS: Anemia type: other cause Other causes of anemia: a cute posthemorrhagic Qualified Code(s): D62 - Acute posthemorrhagic anemia PLAN: Lab work ordered CBC CMP prealbumin vitamin B12 and vitamin D CBC shows anemia and she is to continue taking her iron pills her kidneys and liver are all in within normal her prealbumin is just below normal her vitamin B12 is at a good level she is to continue taking B12 and her vitamin D was within normal limits also she needs to continue taking the vitamin D (5) Malnutrition: CODE(S): E46 - Unspecified protein-calorie malnutrition QUALIFIERS: Malnutrition type: protein-calorie malnutrition P rotein-calorie malnutrition severity: moderate Qualified Code(s): E44.0 - Moderate protein-calorie malnutrition PLAN: Patient is encouraged to use Luis 60 g of protein per day (6) Cellulitis of abdominal wall: CODE(S): L03.311 - Cellulitis of abdominal wall
[2024-05-06 10:45] VITALS: PULSE 113; RESP 18; TEMP 36.4
== END 2024-05-06 23:59 | disposition home or self-care (01) ==
LOC: WC 10:30
PROVIDERS: PCP Family Medicine; Referring Provider Family Medicine; Visit Provider Nurse Practitioner
DX: T81.321A Disruption or dehiscence of closure of internal operation (surgical) wound of abdominal wall muscle or fascia, initial encounter (principal); Z93.3 Colostomy status; L03.311 Cellulitis of abdominal wall; M79.7 Fibromyalgia; E44.0 Moderate protein-calorie malnutrition; N18.2 Chronic kidney disease, stage 2 (mild); S31.109A Unspecified open wound of abdominal wall, unspecified quadrant without penetration into peritoneal cavity, initial encounter; D62 Acute posthemorrhagic anemia; Z79.899 Other long term (current) drug therapy; Z98.84 Bariatric surgery status
CPT/HCPCS: 11043; 11046; 36415; 80053; 82306; 82607; 84134; 85027; 87070; 87075; 87077; 87186; 87205; 97606; 99213; 99214; G0463

== ENCOUNTER → 2024-05-18 | Outpatient (CLI) | payer MEDICARE, SELFPAY | END | disposition home or self-care (01) | LOC: LABSPEC 11:27 | PROVIDERS: PCP Family Medicine; Referring Provider Family Medicine; Visit Provider Family Medicine | DX: R19.7 Diarrhea, unspecified (principal) | CPT/HCPCS: 87493 ==

== ENCOUNTER → 2024-05-25 | Outpatient (CLI) | payer MEDICARE, SELFPAY ==
--- NOTE | 2024-05-25 15:05 | US_ITS ---
PROCEDURE: BREAST LIMITED UNILATERAL REASON FOR EXAM: Right breast pain. Status post mastectomy and implant placement. COMPARISON: None. TECHNIQUE: Targeted ultrasound of the right breast. FINDINGS: RIGHT: The patient is status post right mastectomy. Residual fibroglandular tissue is seen. The implant is completely collapsed. There is a 2.3 cm x 3.4 cm x 0.7 cm echogenic nodule just deep to the skin surface at the 2 o'clock position of the breast at 2 cm from the nipple. This most likely represents a lipoma. US/Breast Limited Unilateral IMPRESSION: Status post right mastectomy with a small amount of residual glandular tissue. The implant is completely deflated. There is a 2.3 cm x 3.4 cm x 0.7 cm echogenic nodule at the 2 o'clock position of the breast at 2 cm from the nipple. This most likely represents a lipoma. BI-RADS 2: BENIGN. RECOMMEND ANNUAL MAMMOGRAPHIC SCREENING. Reading Location: [place] [id number]
== END | disposition home or self-care (01) ==
LOC: OPBI 14:15
PROVIDERS: PCP Family Medicine
DX: N64.4 Mastodynia (principal)
CPT/HCPCS: 76642

== ENCOUNTER 2024-06-01 09:45 | Outpatient (RCR) | payer MEDICARE, SELFPAY ==
[2024-05-07 02:45] VITALS: BP 136/54; PULSE 113; RESP 18; TEMP 36.4
[2024-05-18 10:27] VITALS: BP 125/79; PULSE 122; RESP 18; TEMP 36.4
--- NOTE | 2024-05-18 11:57 | PN.PCM_ITS ---
History of Present Illness Date of Service: 05/18/24 Chief Complaint: Follow-up surgical abdominal wound nonhealing History of Wound: 68-year-old white female who in February developed a GI bleed that turned into ischemic colon. 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 Apparently the bleeding was so intense that they had to do a laparotomy which did not heal well and they left her open and were using a wound VAC at the hospital. Eventually the wound VAC got removed and never replaced like it was supposed to. At this point it is still open to tendon with positive depth looks clean no odor. Beefy red skin in the wound base. Bleeds easily with debridement. Currently taking Keflex daily 1000 mg and developed a urinary tract infection at the senior living where she was staying for few days and they had her on Macrobid and now she is to start tetracycline. Patient is now staying with a nurse at her house for home health care. She still extremely weak and anemic she appears still sallow in color. And does transfer self from wheelchair to bed and bath. Progress of Wound: Patient received her wound VAC finally and had it on for 3 days but did not like the way it made the skin and when she went to go to change it they just took it off they preferred not using it and just doing a wet-to-dry. We will discharge the wound VAC for now and continue the wet-to-dry since she is healing well she still has a small portion of tendon still exposed that she was refused with EpiFix so we will continue using wet-to-dry to pull the skin together there. She states in 2 weeks she has an appointment with the trauma doctors for evaluation of her wounds. She also did see the colostomy nurse and received help with pouches and treatments for the skin underneath the pouch. Patient and nurse that she is living with her very pleased with their care and outcomes. She appears to be healthier she looks better she is eating better she is eating real food and supplements. Subjective Subjective Patient and her nurse are very pleased with outcomes and voiced their concern about using a wound VAC they want do not like it and wanted get rid of it. Objective Data Objective Data Vital Signs: Vital Signs Temp Pulse Resp BP 97.6 F L 122 H 18 125/79 H 05/18/24 10:27 05/18/24 10:27 05/18/24 10:27 05/18/24 10:27 Lab / Micro Data Attestation: I reviewed the patient's lab results. Lab results narrative: So your hemoglobin is still at 10 but it is improved from February is going up which is good but she still under 12 so she needs to continue the iron if pills that she is on right now for supplements plus vitamin B12 The other thing is her albumin was low and her prealbumin was just slightly down at 9 it should be 10 so she looks so much better this was drawn back in April 09 part of April now it well into May and I am sure it is going to be going up and improved the next time we check it in a month or 2. Kidney functions are okay her liver functions are still slightly elevated especially her alk phos is still high and she is complaining of pain up into her chest and I just wonder if that has something to do with upper liver quadrant area. Patient should see an senior clinical consultant about her liver enzymes. Physical Exam Const oriented x3 General Appearance: cooperative, disheveled, appears older than stated age and other Pale and sallow Orientation / Consciousness: awake Exam Limitations: no limitations Nutritional Appearance: cachectic HEENT normocephalic Face and Sinus: normal facial exam External Ear: external ears normal Teeth and Gingiva: poor dentition Eyes PERRL and EOMs intact bilaterally; Negative for conjunctivae normal Eyes Narrative: Conjunctiva pale General Eye: normal appearance of both eyes Neck full ROM General: normal visual inspection Carotids: normal carotid upstroke Resp normal respiratory effort Effort and Inspection: able to speak in complete sentences Auscultation: clear to auscultation bilaterally Cardio regular rate and regular rhythm Palpation: normal PMI Rate: tachycardic Rhythm: regular rhythm GI GI Narrative: Colostomy in the right upper quadrant Palpation: soft, tender and guarding no CVA tenderness Extremity normal to inspection General Extremity: normal exam except as noted Skin Wounds: wounds noted Wound Narrative: Open laparotomy from March 02 never closed tendons open and visible Neuro oriented x3 Psych Appearance: grossly normal Speech: normal speech Thought Content: normal thought content Judgement: judgement good Debridement Note Debridement Note Wound debrided: Surgical wound mid abdomen laparotomy Type of Debridement: Excisional debridement Anesthesia Used: 5% Lidocaine Gel Depth: in the subcutaneous layer and to muscle Percentage of wound debrided: 100 Instrument Used: 5mm curette Tissue Removed: Fibrin Severity: Fat Layer Exposed Amount of bleeding with debridement: Mild Bleeding Controlled with: Compression and gauze Patient tolerated procedure: Patient tolerated procedure well Post-Debridement Measurements and Additional Note: Post-Debridement Measurements/Treatment - Nurse 1 - General Ulcer Assessment Start: 05/18/24 10:25 Freq: Status: Active Protocol: NASIMA Activity Type Activity Date Activity User E-sign Co-sign Detail Recorded Client Recorded Date Recorded By Document 05/18/24 10:27 DL [id number] 05/18/24 10:34 DL 05/18/24 10:27 WC - Today's Visit Information Type of service Follow-up Visit (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 Any new allergies or adverse reactions No Had a fall/change in ADL's that may No increase risk of falls Signs or symptoms of abuse and/or No neglect since last visit Have you been in the hospital since your No last visit? Has dressing in place as prescribed Yes Has compression in place as prescribed N/A Has offloadiing in place as prescribed Yes Experienced any changes in pain level or No management Pain Scale: 0-10 Numeric Is Patient Pain Free? Yes - Nurse 1 - General Ulcer Measurement Start: 05/18/24 10:25 Freq: Status: Active Protocol: Activity Type Activity Date Activity User E-sign Co-sign Detail Recorded Client Recorded Date Recorded By Document 05/18/24 10:27 DL [id number] 05/18/24 10:34 DL 05/18/24 10:27 Wound Center Nurse 1 #1 Abdominal -Current Size (cm) - Length 8.8 -Current Size (cm) - Width 1.5 -Current Size (cm) - Depth 0.2 -Total Square Cm 13.20 -Photo Taken Yes -Exudate Amt Medium -Exudate Type Serosanguineous -Wound Margin Distinct, Outline Attached -Granulation Amt Large (67-100%) -Granulation Quality Red -Necrosis Amt Small (1-33%) -Necrotic Tissue Type Adherent Slough -Structure Exposed N/A -Texture (Harriett-wound Skin Appearance) Scarring -Moisture (Harriett-wound Skin Appearance) No Abnormality -Color (Harriett-wound Skin Appearance) No Abnormality -Temperature (Harriett-wound Skin No Abnormality Appearance) (Pt Warm) -Tenderness on Palpation (Harriett-wound No Skin Appearance) -Ulcer Cleansing Soap and Water -Foul Odor after Cleansing No -Anesthetic Used 5% Lidocaine Gel WC - Nurse 2 - General Ulcer CM Notes Start: 05/18/24 10:25 Freq: Status: Active Protocol: Activity Type Activity Date Activity User E-sign Co-sign Detail Recorded Client Recorded Date Recorded By Document 05/18/24 10:41 [facility] [id number] 05/18/24 10:52 [facility] 05/18/24 10:41 Wound Center Nurse 2 -Time 10:41 -Correct Patient Yes -Correct Side, Site, Position Yes -Correct Procedure Yes -Procedure Performed Yes -Type of Procedure Debridement -Clinical Debridement Muscle / Fascia -Tissue Removed Muscle,Fascia -Post Debridement (cm) - Length 9.2 -Post Debridement (cm) - Width 1.9 -Post Debridement (cm) - Depth 0.6 -Total Square (Post) (cm) 17.48 -Area of Debridement (cm) - Length 9.2 -Area of Debridement (cm) - Width 1.9 -Total Square (Area) (cm) 17.48 -Tunneling No -Undermining/Tunneling No -Circular Undermining No -Wound/Ulcer Outcome Not Healed -Ulcer Cleansing Rinsed/ Irrigated with Saline -Foul Odor after Cleansing No -Bioengineered Tissue No -Bleeding Controlled with Pressure -Treatment Response Procedure Tolerated Well -Debridement - Muscle / Fascia, 1st Yes 20sq cm Pain Scale: 0-10 Numeric Is Patient Pain Free? Yes - Nurse 3 - General Ulcer D/C NN Start: 05/18/24 10:25 Freq: Status: Active Protocol: Activity Type Activity Date Activity User E-sign Co-sign Detail Recorded Client Recorded Date Recorded By Document 05/18/24 11:33 RB [id number] 05/18/24 11:34 RB 05/18/24 11:33 Wound Care Center Nurse 3 #1 Abdominal -Other Dressing dakins moistened gauze -Primary Dressing Covered/Secured with Dry Gauze, Secured with Tape Treatment Response Procedure Tolerated Well Pain Scale: 0-10 Numeric Is Patient Pain Free? Yes WC - Visit Discharge Discharge Condition Stable Ambulatory Status Wheelchair Transportation Private Auto Medication Reconcilliation completed & No provided to patient/care provider Clinical Summary of Care Provided Yes
[2024-05-25 10:19] VITALS: BP 134/70; PULSE 114; RESP 18; TEMP 36.4
--- NOTE | 2024-05-25 12:41 | PN.PCM_ITS ---
History of Present Illness Date of Service: 05/25/24 Chief Complaint: Follow-up surgical abdominal wound nonhealing History of Wound: 68-year-old white female who in February developed a GI bleed that turned into ischemic colon. 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 Apparently the bleeding was so intense that they had to do a laparotomy which did not heal well and they left her open and were using a wound VAC at the hospital. Eventually the wound VAC got removed and never replaced like it was supposed to. At this point it is still open to tendon with positive depth looks clean no odor. Beefy red skin in the wound base. Bleeds easily with debridement. Currently taking Keflex daily 1000 mg and developed a urinary tract infection at the half-way where she was staying for few days and they had her on Macrobid and now she is to start tetracycline. Patient is now staying with a nurse at her house for home health care. She still extremely weak and anemic she appears still sallow in color. And does transfer self from wheelchair to bed and bath. Progress of Wound: Patient is healing well and is almost closed her tendons are finally covered and I nipped away 1 loose suture that was coming through the skin. Patient is to continue the Dakin's wet-to-dry for now she should be healed in the next couple of weeks she is eating better and getting around better. Her overall health is much improved. And she seems to be much happier. Subjective Subjective Patient and her prestidigitator are very happy with outcomes Objective Data Objective Data Will continue the Dakin's wet to dry until healed and that should be in a short period and measurements are much smaller and it is about a quarter the size it was originally. Vital Signs: Vital Signs Temp Pulse Resp BP 97.6 F L 114 H 18 134/70 H 05/25/24 10:19 05/25/24 10:19 05/25/24 10:19 05/25/24 10:19 Lab / Micro Data Attestation: I reviewed the patient's lab results. Physical Exam Const oriented x3 General Appearance: cooperative, disheveled, appears older than stated age and other Pale and sallow Orientation / Consciousness: awake Exam Limitations: no limitations Nutritional Appearance: cachectic HEENT normocephalic Face and Sinus: normal facial exam External Ear: external ears normal Teeth and Gingiva: poor dentition Eyes PERRL and EOMs intact bilaterally; Negative for conjunctivae normal Eyes Narrative: Conjunctiva pale General Eye: normal appearance of both eyes Neck full ROM General: normal visual inspection Carotids: normal carotid upstroke Resp normal respiratory effort Effort and Inspection: able to speak in complete sentences Auscultation: clear to auscultation bilaterally Cardio regular rate and regular rhythm Palpation: normal PMI Rate: tachycardic Rhythm: regular rhythm GI GI Narrative: Colostomy in the right upper quadrant Palpation: soft, tender and guarding no CVA tenderness Extremity normal to inspection General Extremity: normal exam except as noted Skin Wounds: wounds noted Wound Narrative: Open laparotomy from March 02 never closed tendons open and visible Neuro oriented x3 Psych Appearance: grossly normal Speech: normal speech Thought Content: normal thought content Judgement: judgement good Debridement Note Debridement Note Wound debrided: Surgical wound mid abdomen laparotomy Type of Debridement: Excisional debridement Anesthesia Used: 5% Lidocaine Gel Depth: in the subcutaneous layer and to muscle Percentage of wound debrided: 100 Instrument Used: 5mm curette Tissue Removed: Fibrin Severity: Fat Layer Exposed Amount of bleeding with debridement: Mild Bleeding Controlled with: Compression and gauze Patient tolerated procedure: Patient tolerated procedure well Post-Debridement Measurements and Additional Note: Post-Debridement Measurements/Treatment - Nurse 1 - General Ulcer Assessment Start: 05/18/24 10:25 Freq: Status: Active Protocol: [email or web address].[email or web address] Activity Type Activity Date Activity User E-sign Co-sign Detail Recorded Client Recorded Date Recorded By Document 05/18/24 10:27 DL [id number] 05/18/24 10:34 DL Document 05/25/24 10:19 DL [id number] 05/25/24 10:22 DL 05/18/24 05/25/24 10:27 10:19 - Today's Visit Information Type of service Follow-up Visit Follow-up Visit (Physician/CABLE TECHNICIAN (Physician/CABLE TECHNICIAN ) ) Arrival Mode Ambulatory, Ambulatory, Wheelchair Wheelchair Transfer Assistance None Manual Patient Identification Verified (Name & Yes Yes ) Patient Requires Transmission-Based No No Precautions Vital Signs Temperature (97.8 F-99.1 F) 97.6 F L 97.6 F L Temperature Source Temporal Temporal Pulse Rate (60-100) 122 H 114 H Pulse Location Monitor Monitor Respiratory Rate (12-18) 18 18 Respiratory rate source Observation Observation Blood Pressure (90/60-120/80) 125/79 H 134/70 H Blood Pressure Mean (mm Hg) 94 91 Source Monitor Monitor History Since Last Visit- (Skip if this is Patient's initial visit) Have you changed medications since your No No last visit? Any new allergies or adverse reactions No No Had a fall/change in ADL's that may No No increase risk of falls Signs or symptoms of abuse and/or No No neglect since last visit Have you been in the hospital since your No No last visit? Has dressing in place as prescribed Yes Yes Has compression in place as prescribed N/A N/A Has offloadiing in place as prescribed Yes N/A Experienced any changes in pain level or No No management Pain Scale: 0-10 Numeric Is Patient Pain Free? Yes Yes WC - Nurse 1 - General Ulcer Measurement Start: 05/18/24 10:25 Freq: Status: Active Protocol: Activity Type Activity Date Activity User E-sign Co-sign Detail Recorded Client Recorded Date Recorded By Document 05/18/24 10:27 DL [id number] 05/18/24 10:34 DL Document 05/25/24 10:19 DL [id number] 05/25/24 10:22 DL 05/18/24 05/25/24 10:27 10:19 Wound Center Nurse 1 #1 Abdominal -Current Size (cm) - Length 8.8 7.5 -Current Size (cm) - Width 1.5 1 -Current Size (cm) - Depth 0.2 0.3 -Total Square Cm 13.20 7.5 -Photo Taken Yes -Exudate Amt Medium Medium -Exudate Type Serosanguineous Serosanguineous -Wound Margin Distinct, Distinct, Outline Outline Attached Attached -Granulation Amt Large (67-100%) Large (67-100%) -Granulation Quality Red Red -Necrosis Amt Small (1-33%) None Present (0 %) -Necrotic Tissue Type Adherent Slough -Structure Exposed N/A N/A -Texture (Harriett-wound Skin Appearance) Scarring Scarring -Moisture (Harriett-wound Skin Appearance) No Abnormality No Abnormality -Color (Harriett-wound Skin Appearance) No Abnormality No Abnormality -Temperature (Harriett-wound Skin No Abnormality No Abnormality Appearance) (Pt Warm) (Pt Warm) -Tenderness on Palpation (Harriett-wound No No Skin Appearance) -Ulcer Cleansing Soap and Water Rinsed/ Irrigated with Saline -Foul Odor after Cleansing No No -Anesthetic Used 5% Lidocaine 5% Lidocaine Gel Gel WC - Nurse 2 - General Ulcer CM Notes Start: 05/18/24 10:25 Freq: Status: Active Protocol: Activity Type Activity Date Activity User E-sign Co-sign Detail Recorded Client Recorded Date Recorded By Document 05/18/24 10:41 [facility] [id number] 05/18/24 10:52 [facility] Document 05/25/24 10:52 [facility] [id number] 05/25/24 10:56 [facility] 05/18/24 05/25/24 10:41 10:52 Wound Center Nurse 2 #1 Abdominal -Time 10:41 10:52 -Correct Patient Yes Yes -Correct Side, Site, Position Yes Yes -Correct Procedure Yes Yes -Procedure Performed Yes Yes -Type of Procedure Debridement Debridement -Clinical Debridement Muscle / Fascia Subcutaneous -Tissue Removed Muscle,Fascia Subcutaneous -Post Debridement (cm) - Length 9.2 8.5 -Post Debridement (cm) - Width 1.9 1.3 -Post Debridement (cm) - Depth 0.6 0.5 -Total Square (Post) (cm) 17.48 11.05 -Area of Debridement (cm) - Length 9.2 8.5 -Area of Debridement (cm) - Width 1.9 1.3 -Total Square (Area) (cm) 17.48 11.05 -Tunneling No No -Undermining/Tunneling No No -Circular Undermining No No -Wound/Ulcer Outcome Not Healed Not Healed -Ulcer Cleansing Rinsed/ Rinsed/ Irrigated with Irrigated with Saline Saline -Foul Odor after Cleansing No No -Bioengineered Tissue No No -Bleeding Controlled with Pressure Pressure -Treatment Response Procedure Procedure Tolerated Well Tolerated Well -Debridement - Subq, 1st 20sq cm Yes -Debridement - Muscle / Fascia, 1st Yes 20sq cm Pain Scale: 0-10 Numeric Is Patient Pain Free? Yes Yes - Nurse 3 - General Ulcer D/C NN Start: 05/18/24 10:25 Freq: Status: Active Protocol: Activity Type Activity Date Activity User E-sign Co-sign Detail Recorded Client Recorded Date Recorded By Document 05/18/24 11:33 RB [id number] 05/18/24 11:34 RB Document 05/25/24 11:00 [id number] 05/25/24 11:01 CP 05/18/24 05/25/24 11:33 11:00 Wound Care Center Nurse 3 #1 Abdominal -Ulcer Cleansing dakins -Other Dressing dakins moistened gauze -Primary Dressing Covered/Secured with Dry Gauze, Dry Gauze, Secured with Secured with Tape Tape Treatment Response Procedure Tolerated Well Pain Scale: 0-10 Numeric Is Patient Pain Free? Yes Yes WC - Visit Discharge Discharge Condition Stable Stable Ambulatory Status Wheelchair Ambulatory Transportation Private Auto Private Auto Medication Reconcilliation completed & No provided to patient/care provider Clinical Summary of Care Provided Yes Yes Assessment/Plan Assessment/Plan (1) Nonhealing surgical wound: CODE(S): T81.89XA - Other complications of procedures, not elsewhere classified, initial encounter QUALIFIERS: Encounter type: initial encounter Qualified Code(s): T81.89XA - Other complications of procedures, not elsewhere classified, initial encounter (2) Chronic abdominal wound infection: CODE(S): S31.109A - Unspecified open wound of abdominal wall, unspecified quadrant without penetration into peritoneal cavity, initial encounter; L08.9 - Local infection of the skin and subcutaneous tissue, unspecified QUALIFIERS: Encounter type: initial encounter Qualified Code(s): S31.109A - Unspecified open wound of abdominal wall, unspecified quadrant without penetration into peritoneal cavity, initial encounter; L08.9 - Local infection of the skin and subcutaneous tissue, unspecified PLAN: Wound cultures obtained and patient done with antibiotic therapy (3) Dehiscence of laparotomy wound: CODE(S): T81.321A - Disruption or dehiscence of closure of internal operation (surgical) wound of abdominal wall muscle or fascia, initial encounter PLAN: Wash wound with antibacterial soap and water then using Dakin's wet to dry gauze dressings with ABD pad over top Follow-up 1 week (4) Anemia: CODE(S): D64.9 - Anemia, unspecified QUALIFIERS: Anemia type: other cause Other causes of anemia: acute posthemorrhagic Qualified Code(s): D62 - Acute posthemorrhagic anemia PLAN: Lab work ordered CBC CMP prealbumin vitamin B12 and vitamin D CBC shows anemia and she is to continue taking her iron pills her kidneys and liver are all in within normal her prealbumin is just below normal her vitamin B12 is at a good level she is to continue taking B12 and her vitamin D was within normal limits also she needs to continue taking the vitamin D (5) Malnutrition: CODE(S): E46 - Unspecified protein-calorie malnutrition QUALIFIERS: Malnutrition type: protein-calorie malnutrition Protein-calorie malnutrition severity: moderate Qualified Code(s): E44.0 - Moderate protein-calorie malnutrition PLAN: Patient is encouraged to use Luis 60 g of protein per day (6) Cellulitis of abdominal wall: CODE(S): L03.311 - Cellulitis of abdominal wall
[2024-06-01 09:53] VITALS: BP 114/57; PULSE 111; RESP 16; TEMP 36.6
--- NOTE | 2024-06-01 11:34 | PCM.WC.PN ---
History of Present Illness Date of Service: 06/01/24 Chief Complaint: Follow-up surgical abdominal wound nonhealing History of Wound: 68-year-old white female who in February developed a GI bleed that turned into ischemic colon. 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 Apparently the bleeding was so intense that they had to do a laparotomy which did not heal well and they left her open and were using a wound VAC at the hospital. Eventually the wound VAC got removed and never replaced like it was supposed to. At this point it is still open to tendon with positive depth looks clean no odor. Beefy red skin in the wound base. Bleeds easily with debridement. Currently taking Keflex daily 1000 mg and developed a urinary tract infection at the [facility] where she was staying for few days and they had her on Macrobid and now she is to start tetracycline. Patient is now staying with a nurse at her house for home health care. She still extremely weak and anemic she appears still sallow in color. And does transfer self from wheelchair to bed and bath. Progress of Wound: Patient is healing well and is almost closed her tendons are finally covered and the bottom half of the wound is completely closed. I nipped away 1 loose suture that was coming through the skin. Patient is to stop the Dakin's and we will try her on Promogran with Adaptic and gauze dressing for final closure. Her overall health is much improved. And she seems to be much happier. 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 Measurements are much smaller doing well no concerns no odor no sign of infection. Vital Signs: Vital Signs Temp Pulse Resp BP 97.9 F 111 H 16 114/57 L 06/01/24 09:53 06/01/24 09:53 06/01/24 09:53 06/01/24 09:53 Lab / Micro Data Attestation: I reviewed the patient's lab results. Physical Exam Const oriented x3 General Appearance: cooperative, disheveled, appears older than stated age and other Pale and sallow Orientation / Consciousness: awake Exam Limitations: no limitations Nutritional Appearance: cachectic HEENT normocephalic Face and Sinus: normal facial exam External Ear: external ears normal Teeth and Gingiva: poor dentition Eyes PERRL and EOMs intact bilaterally; Negative for conjunctivae normal Eyes Narrative: Conjunctiva pale General Eye: normal appearance of both eyes Neck full ROM General: normal visual inspection Carotids: normal carotid upstroke Resp normal respiratory effort Effort and Inspection: able to speak in complete sentences Auscultation: clear to auscultation bilaterally Cardio regular rate and regular rhythm Palpation: normal PMI Rate: tachycardic Rhythm: regular rhythm GI GI Narrative: Colostomy in the right upper quadrant Palpation: soft, tender and guarding no CVA tenderness Extremity normal to inspection General Extremity: normal exam except as noted Skin Wounds: wounds noted Wound Narrative: Open laparotomy from March 02 never closed tendons open and visible Neuro oriented x3 Psych Appearance: grossly normal Speech: normal speech Thought Content: normal thought content Judgement: judgement good Debridement Note Debridement Note Wound debrided: Surgical wound mid abdomen laparotomy Type of Debridement: Excisional debridement Anesthesia Used: 5% Lidocaine Gel Depth: in the subcutaneous layer and to muscle Percentage of wound debrided: 100 Instrument Used: 5mm curette Tissue Removed: Fibrin Severity: Fat Layer Exposed Amount of bleeding with debridement: Mild Bleeding Controlled with: Compression and gauze Patient tolerated procedure: Patient tolerated procedure well Post-Debridement Measurements and Additional Note: Post-Debridement Measurements/Treatment - Nurse 1 - General Ulcer Assessment Start: 05/18/24 10:25 Freq: Status: Active Protocol: MEREDITH.JAMEE Activity Type Activity Date Activity User E-sign Co-sign Detail Recorded Client Recorded Date Recorded By Document 05/18/24 10:27 DL [id number] 05/18/24 10:34 DL Document 05/25/24 10:19 DL [id number] 05/25/24 10:22 DL Document 06/01/24 09:53 DL [id number] 06/01/24 09:59 DL 05/18/24 05/25/24 06/01/24 10:27 10:19 09:53 - Today's Visit Information Type of service Follow-up Visit Follow-up Visit Follow-up Visit (Physician/BILL CLERK (Physician/BILL CLERK (Physician/BILL CLERK ) ) ) Arrival Mode Ambulatory, Ambulatory, Ambulatory, Wheelchair Wheelchair Wheelchair Transfer Assistance None Manual Manual,None Transfer Assist (Other) x1 Patient Identification Verified (Name & Yes Yes Yes ) Patient Requires Transmission-Based No No No Precautions Vital Signs Temperature (97.8 F-99.1 F) 97.6 F L 97.6 F L 97.9 F Temperature Source Temporal Temporal Temporal Pulse Rate (60-100) 122 H 114 H 111 H Pulse Location Monitor Monitor Monitor Respiratory Rate (12-18) 18 18 16 Respiratory rate source Observation Observation Observation Blood Pressure (90/60-120/80) 125/79 H 134/70 H 114/57 L Blood Pressure Mean (mm Hg) 94 91 76 Source Monitor Monitor Monitor History Since Last Visit- (Skip if this is Patient's initial visit) Have you changed medications since your No No No last visit? Any new allergies or adverse reactions No No No Had a fall/change in ADL's that may No No No increase risk of falls Signs or symptoms of abuse and/or No No No neglect since last visit Have you been in the hospital since your No No No last visit? Has dressing in place as prescribed Yes Yes Yes Has compression in place as prescribed N/A N/A N/A Has offloadiing in place as prescribed Yes N/A N/A Experienced any changes in pain level or No No No management Pain Scale: 0-10 Numeric Is Patient Pain Free? Yes Yes Yes WC - Nurse 1 - General Ulcer Measurement Start: 05/18/24 10:25 Freq: Status: Active Protocol: Activity Type Activity Date Activity User E-sign Co-sign Detail Recorded Client Recorded Date Recorded By Document 05/18/24 10:27 DL [id number] 05/18/24 10:34 DL Document 05/25/24 10:19 DL [id number] 05/25/24 10:22 DL Document 06/01/24 09:53 DL [id number] 06/01/24 09:59 DL 05/18/24 05/25/24 06/01/24 10:27 10:19 09:53 Wound Center Nurse 1 #1 Abdominal -Current Size (cm) - Length 8.8 7.5 2 -Current Size (cm) - Width 1.5 1 0.6 -Current Size (cm) - Depth 0.2 0.3 0.1 -Total Square Cm 13.20 7.5 1.2 -Photo Taken Yes Yes -Exudate Amt Medium Medium Small -Exudate Type Serosanguineous Serosanguineous Serosanguineous -Wound Margin Distinct, Distinct, Distinct, Outline Outline Outline Attached Attached Attached -Granulation Amt Large (67-100%) Large (67-100%) Large (67-100%) -Granulation Quality Red Red Farmer -Necrosis Amt Small (1-33%) None Present (0 None Present (0 %) %) -Necrotic Tissue Type Adherent Slough -Structure Exposed N/A N/A N/A -Texture (Harriett-wound Skin Appearance) Scarring Scarring Scarring -Moisture (Harriett-wound Skin Appearance) No Abnormality No Abnormality Assessed -Color (Harriett-wound Skin Appearance) No Abnormality No Abnormality No Abnormality -Temperature (Harriett-wound Skin No Abnormality No Abnormality No Abnormality Appearance) (Pt Warm) (Pt Warm) (Pt Warm) -Tenderness on Palpation (Harriett-wound No No No Skin Appearance) -Ulcer Cleansing Soap and Water Rinsed/ Wound Cleanser Irrigated with Saline -Foul Odor after Cleansing No No Yes, Due to Product Use -Anesthetic Used 5% Lidocaine 5% Lidocaine 5% Lidocaine Gel Gel Gel WC - Nurse 2 - General Ulcer CM Notes Start: 05/18/24 10:25 Freq: Status: Active Protocol: Activity Type Activity Date Activity User E-sign Co-sign Detail Recorded Client Recorded Date Recorded By Document 05/18/24 10:41 [facility] [id number] 05/18/24 10:52 [facility] Document 05/25/24 10:52 [facility] [id number] 05/25/24 10:56 [facility] Document 06/01/24 10:08 [facility] [id number] 06/01/24 10:12 [facility] 05/18/24 05/25/24 06/01/24 10:41 10:52 10:08 Wound Center Nurse 2 #1 Abdominal -Time 10:41 10:52 10:08 -Correct Patient Yes Yes Yes -Correct Side, Site, Position Yes Yes Yes -Correct Procedure Yes Yes Yes -Procedure Performed Yes Yes Yes -Type of Procedure Debridement Debridement Debridement -Clinical Debridement Muscle / Fascia Subcutaneous Subcutaneous -Tissue Removed Muscle,Fascia Subcutaneous Subcutaneous -Post Debridement (cm) - Length 9.2 8.5 2.5 -Post Debridement (cm) - Width 1.9 1.3 0.9 -Post Debridement (cm) - Depth 0.6 0.5 0.2 -Total Square (Post) (cm) 17.48 11.05 2.25 -Area of Debridement (cm) - Length 9.2 8.5 2.5 -Area of Debridement (cm) - Width 1.9 1.3 0.9 -Total Square (Area) (cm) 17.48 11.05 2.25 -Tunneling No No No -Undermining/Tunneling No No No -Circular Undermining No No No -Wound/Ulcer Outcome Not Healed Not Healed Not Healed -Ulcer Cleansing Rinsed/ Rinsed/ Rinsed/ Irrigated with Irrigated with Irrigated with Saline Saline Saline -Foul Odor after Cleansing No No No -Bioengineered Tissue No No No -Bleeding Controlled with Pressure Pressure Pressure -Treatment Response Procedure Procedure Procedure Tolerated Well Tolerated Well Tolerated Well -Debridement - Subq, 1st 20sq cm Yes Yes -Debridement - Muscle / Fascia, 1st Yes 20sq cm Pain Scale: 0-10 Numeric Is Patient Pain Free? Yes Yes Yes - Nurse 3 - General Ulcer D/C NN Start: 05/18/24 10:25 Freq: Status: Active Protocol: Activity Type Activity Date Activity User E-sign Co-sign Detail Recorded Client Recorded Date Recorded By Document 05/18/24 11:33 [id number] 05/18/24 11:34 RB Document 05/25/24 11:00 [id number] 05/25/24 11:01 Document 06/01/24 10:13 [facility] [id number] 06/01/24 10:14 [facility] 05/18/24 05/25/24 06/01/24 11:33 11:00 10:13 Wound Care Center Nurse 3 #1 Abdominal -Ulcer Cleansing dakins Rinsed/ Irrigated with Saline -Foul Odor after Cleansing No -Primary Dressing Applied NonAdherent Contact Layer, Promogran -Other Dressing dakins moistened gauze -Primary Dressing Covered/Secured with Dry Gauze, Dry Gauze, Dry Gauze Secured with Secured with Tape Tape -Promogran 2 Treatment Response Procedure Procedure Tolerated Well Tolerated Well Pain Scale: 0-10 Numeric Is Patient Pain Free? Yes Yes Yes - Visit Discharge Discharge Condition Stable Stable Stable Ambulatory Status Wheelchair Ambulatory Ambulatory Transportation Private Auto Private Auto Private Auto Medication Reconcilliation completed & No provided to patient/care provider Clinical Summary of Care Provided Yes Yes Assessment/Plan Assessment/Plan (1) Nonhealing surgical wound: CODE(S): T81.89XA - Other complications of procedures, not elsewhere classified, initial encounter QUALIFIERS: Encounter type: subsequent encounter Qualified Code(s): T81.89XD - Other complications of procedures, not elsewhere classified, subsequent encounter (2) Dehiscence of laparotomy wound: CODE(S): T81.321A - Disruption or dehiscence of closure of internal operation (surgical) wound of abdominal wall muscle or fascia, initial encounter PLAN: Wash wound with antibacterial soap and water then apply Promogran to wound base moistened with Adaptic and absorbent gauze dressing over top. This will be a daily dressing Follow-up 1 week (3) Anemia: CODE(S): D64.9 - Anemia, unspecified QUALIFIERS: Anemia type: other cause Other causes of anemia: acute posthemorrhagic Qualified Code(s): D62 - Acute posthemorrhagic anemia PLAN: Lab work ordered CBC CMP prealbumin vitamin B12 and vitamin D CBC shows anemia and she is to continue taking her iron pills her kidneys and liver are all in within normal her prealbumin is just below normal her vitamin B12 is at a good level she is to continue taking B12 and her vitamin D was within normal limits also she needs to continue taking the vitamin D (4) Malnutrition: CODE(S): E46 - Unspecified protein-calorie malnutrition QUALIFIERS: Malnutrition type: protein-calorie malnutrition Protein-calorie malnutrition severity: moderate Qualified Code(s): E44.0 - Moderate protein-calorie malnutrition PLAN: Patient is encouraged to use Luis 60 g of protein per day (5) Cellulitis of abdominal wall: CODE(S): L03.311 - Cellulitis of abdominal wall
--- NOTE | 2024-06-01 15:04 | WC ---
PHOTO 06/01/24 ABD
== END 2024-06-06 23:59 | disposition home or self-care (01) ==
LOC: WC 09:45
PROVIDERS: PCP Family Medicine; Referring Provider Family Medicine; Visit Provider Nurse Practitioner
DX: T81.321A Disruption or dehiscence of closure of internal operation (surgical) wound of abdominal wall muscle or fascia, initial encounter (principal); Z93.3 Colostomy status; S31.109A Unspecified open wound of abdominal wall, unspecified quadrant without penetration into peritoneal cavity, initial encounter; E44.0 Moderate protein-calorie malnutrition; L03.311 Cellulitis of abdominal wall; Y83.9 Surgical procedure, unspecified as the cause of abnormal reaction of the patient, or of later complication, without mention of misadventure at the time of the procedure
CPT/HCPCS: 11042; 11043

== ENCOUNTER 2024-07-06 10:00 | Outpatient (RCR) | payer MEDICARE, SELFPAY ==
[2024-06-07 00:57] VITALS: BP 114/57; PULSE 111; RESP 16; TEMP 36.6
[2024-06-08 09:47] VITALS: BP 124/72; PULSE 115; RESP 16; TEMP 36.4
--- NOTE | 2024-06-08 10:50 | PCM.WC.PN ---
History of Present Illness Date of Service: 06/08/24 Chief Complaint: Follow-up surgical abdominal wound nonhealing History of Wound: 68-year-old white female who in February developed a GI bleed that turned into ischemic colon. 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 Apparently the bleeding was so intense that they had to do a laparotomy which did not heal well and they left her open and were using a wound VAC at the hospital. Eventually the wound VAC got removed and never replaced like it was supposed to. At this point it is still open to tendon with positive depth looks clean no odor. Beefy red skin in the wound base. Bleeds easily with debridement. Currently taking Keflex daily 1000 mg and developed a urinary tract infection at the residential where she was staying for few days and they had her on Macrobid and now she is to start tetracycline. Patient is now staying with a nurse at her house for home health care. She still extremely weak and anemic she appears still sallow in color. And does transfer self from wheelchair to bed and bath. Progress of Wound: Abdominal wound is a quarter of the size it was last week. She has a little bit of undermining at 10:00. Tolerating the Promogran greatly very happy with outcomes could be healed in another week or 2. 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 Also her right upper quadrant pain is gone. Vital Signs: Vital Signs Temp Pulse Resp BP 97.5 F L 115 H 16 124/72 H 06/08/24 09:47 06/08/24 09:47 06/08/24 09:47 06/08/24 09:47 Lab / Micro Data Attestation: I reviewed the patient's lab results. Physical Exam Const oriented x3 General Appearance: cooperative, disheveled, appears older than stated age and other Pale and sallow Orientation / Consciousness: awake Exam Limitations: no limitations Nutritional Appearance: cachectic HEENT normocephalic Face and Sinus: normal facial exam External Ear: external ears normal Teeth and Gingiva: poor dentition Eyes PERRL and EOMs intact bilaterally; Negative for conjunctivae normal Eyes Narrative: Conjunctiva pale General Eye: normal appearance of both eyes Neck full ROM General: normal visual inspection Carotids: normal carotid upstroke Resp normal respiratory effort Effort and Inspection: able to speak in complete sentences Auscultation: clear to auscultation bilaterally Cardio regular rate and regular rhythm Palpation: normal PMI Rate: tachycardic Rhythm: regular rhythm GI GI Narrative: Colostomy in the right upper quadrant Palpation: soft, tender and guarding no CVA tenderness Extremity normal to inspection General Extremity: normal exam except as noted Skin Wounds: wounds noted Wound Narrative: Open laparotomy from March 02 never closed tendons open and visible Neuro oriented x3 Psych Appearance: grossly normal Speech: normal speech Thought Content: normal thought content Judgement: judgement good Debridement Note Debridement Note Wound debrided: Surgical wound mid abdomen laparotomy Type of Debridement: Excisional debridement Anesthesia Used: 5% Lidocaine Gel Depth: in the subcutaneous layer and to muscle Percentage of wound debrided: 100 Instrument Used: 3mm curette Tissue Removed: Fibrin undermining at 10 AM Severity: Fat Layer Exposed Amount of bleeding with debridement: Mild Bleeding Controlled with: Compression and gauze Patient tolerated procedure: Patient tolerated procedure well Post-Debridement Measurements and Additional Note: Post-Debridement Measurements/Treatment - Nurse 1 - General Ulcer Assessment Start: 06/08/24 09:47 Freq: Status: Active Protocol: [email or web address].LOWMAXIMOT Activity Type Activity Date Activity User E-sign Co-sign Detail Recorded Client Recorded Date Recorded By Document 06/08/24 09:47 DL [id number] 06/08/24 09:52 DL 06/08/24 09:47 - Today's Visit Information Type of service Follow-up Visit (Physician/HAND PICKER ) Arrival Mode Wheelchair Transfer Assistance Manual Transfer Assist (Other) x1 Patient Identification Verified (Name & Yes ) Patient Requires Transmission-Based No Precautions Vital Signs Temperature (97.8 F-99.1 F) 97.5 F L Temperature Source Temporal Pulse Rate (60-100) 115 H Pulse Location Monitor Respiratory Rate (12-18) 16 Respiratory rate source Observation Blood Pressure (90/60-120/80) 124/72 H Blood Pressure Mean (mm Hg) 89 Source Monitor History Since Last Visit- (Skip if this is Patient's initial visit) Have you changed medications since your No last visit? Any new allergies or adverse reactions No Had a fall/change in ADL's that may No increase risk of falls Signs or symptoms of abuse and/or No neglect since last visit Have you been in the hospital since your No last visit? Has dressing in place as prescribed Yes Has compression in place as prescribed N/A Has offloadiing in place as prescribed N/A Experienced any changes in pain level or No management Pain Scale: 0-10 Numeric Is Patient Pain Free? Yes - Nurse 1 - General Ulcer Measurement Start: 06/08/24 09:47 Freq: Status: Active Protocol: Activity Type Activity Date Activity User E-sign Co-sign Detail Recorded Client Recorded Date Recorded By Document 06/08/24 09:47 [id number] 06/08/24 09:52 DL 06/08/24 09:47 Wound Center Nurse 1 #1 Abdominal -Current Size (cm) - Length 1.5 -Current Size (cm) - Width 0.5 -Current Size (cm) - Depth 0.1 -Total Square Cm 0.75 -Exudate Amt Medium -Exudate Type Serosanguineous -Wound Margin Distinct, Outline Attached -Granulation Amt Large (67-100%) -Granulation Quality [place] -Necrotic Tissue Type Adherent Slough -Structure Exposed N/A -Texture (Harriett-wound Skin Appearance) Scarring -Moisture (Harriett-wound Skin Appearance) No Abnormality -Color (Harriett-wound Skin Appearance) No Abnormality -Temperature (Harriett-wound Skin No Abnormality Appearance) (Pt Warm) -Ulcer Cleansing Soap and Water -Foul Odor after Cleansing No -Anesthetic Used 5% Lidocaine Gel - Nurse 2 - General Ulcer CM Notes Start: 06/08/24 09:47 Freq: Status: Active Protocol: Activity Type Activity Date Activity User E-sign Co-sign Detail Recorded Client Recorded Date Recorded By Document 06/08/24 09:56 [facility] [id number] 06/08/24 10:01 [facility] 06/08/24 09:56 Wound Center Nurse 2 -Time 09:56 -Correct Patient Yes -Correct Side, Site, Position Yes -Correct Procedure Yes -Procedure Performed Yes -Type of Procedure Debridement -Clinical Debridement Subcutaneous -Tissue Removed Subcutaneous -Post Debridement (cm) - Length 1.3 -Post Debridement (cm) - Width 0.7 -Post Debridement (cm) - Depth 0.1 -Total Square (Post) (cm) 0.91 -Area of Debridement (cm) - Length 1.3 -Area of Debridement (cm) - Width 0.7 -Total Square (Area) (cm) 0.91 -Tunneling No -Undermining/Tunneling Yes -Undermining/Tunneling Starts (O'clock 10 ) -Undermining/Tunneling Ends (O'clock) 10 -Maximum Distance (cm) 0.2 -Circular Undermining No -Wound/Ulcer Outcome Not Healed -Ulcer Cleansing Rinsed/ Irrigated with Saline -Foul Odor after Cleansing No -Bioengineered Tissue No -Bleeding Controlled with Pressure -Treatment Response Procedure Tolerated Well -Debridement - Subq, 1st 20sq cm Yes Pain Scale: 0-10 Numeric Is Patient Pain Free? Yes - Nurse 3 - General Ulcer D/C NN Start: 06/08/24 09:47 Freq: Status: Active Protocol: Activity Type Activity Date Activity User E-sign Co-sign Detail Recorded Client Recorded Date Recorded By Document 06/08/24 10:02 [facility] [id number] 06/08/24 10:05 [facility] 06/08/24 10:02 Wound Care Center Nurse 3 #1 Abdominal -Ulcer Cleansing Rinsed/ Irrigated with Saline -Foul Odor after Cleansing No -Primary Dressing Applied Promogran -Primary Dressing Covered/Secured with Dry Gauze, Secured with Tape -Promogran 1 Treatment Response Procedure Tolerated Well Pain Scale: 0-10 Numeric Is Patient Pain Free? Yes - Visit Discharge Discharge Condition Stable Ambulatory Status Wheelchair Transportation Private Auto Accompanied by caregiver Assessment/Plan Assessment/Plan (1) Nonhealing surgical wound: CODE(S): T81.89XA - Other complications of procedures, not elsewhere classified, initial encounter QUALIFIERS: Encounter type: subsequent encounter Qualified Code(s): T81.89XD - Other complications of procedures, not elsewhere classified, subsequent encounter (2) Dehiscence of laparotomy wound: CODE(S): T81.321A - Disruption or dehiscence of closure of internal operation (surgical) wound of abdominal wall muscle or fascia, initial encounter PLAN: Wash wound with antibacterial soap and water then apply Promogran to wound base moistened with Adaptic and absorbent gauze dressing over top. This will be a daily dressing Follow-up 1 week (3) Anemia: CODE(S): D64.9 - Anemia, unspecified QUALIFIERS: Anemia type: other cause Other causes of anemia: acute posthemorrhagic Qualified Code(s): D62 - Acute posthemorrhagic anemia PLAN: Lab work ordered CBC CMP prealbumin vitamin B12 and vitamin D CBC shows anemia and she is to continue taking her iron pills her kidneys and liver are all in within normal her prealbumin is just below normal her vitamin B12 is at a good level she is to continue taking B12 and her vitamin D was within normal limits also she needs to continue taking the vitamin D (4) Malnutrition: CODE(S): E46 - Unspecified protein-calorie malnutrition QUALIFIERS: Malnutrition type: protein-calorie malnutrition Protein-calorie malnutrition severity: moderate Qualified Code(s): E44.0 - Moderate protein-calorie malnutrition PLAN: Patient is encouraged to use Luis 60 g of protein per day (5) Cellulitis of abdominal wall: CODE(S): L03.311 - Cellulitis of abdominal wall
[2024-06-15 10:28] VITALS: BP 126/62; PULSE 114; RESP 18; TEMP 36.4
--- NOTE | 2024-06-15 12:26 | PCM.WC.PN ---
History of Present Illness Date of Service: 06/15/24 Chief Complaint: Follow-up surgical abdominal wound nonhealing History of Wound: 68-year-old white female who in February developed a GI bleed that turned into ischemic colon. 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 Apparently the bleeding was so intense that they had to do a laparotomy which did not heal well and they left her open and were using a wound VAC at the hospital. Eventually the wound VAC got removed and never replaced like it was supposed to. At this point it is still open to tendon with positive depth looks clean no odor. Beefy red skin in the wound base. Bleeds easily with debridement. Currently taking Keflex daily 1000 mg and developed a urinary tract infection at the senior living where she was staying for few days and they had her on Macrobid and now she is to start tetracycline. Patient is now staying with a nurse at her house for home health care. She still extremely weak and anemic she appears still sallow in color. And does transfer self from wheelchair to bed and bath. Progress of Wound: Abdominal wound is a quarter of the size it was last week. She has no undermining. Tolerating the Promogran greatly very happy with outcomes could be healed in another week or 2. 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 Vital Signs: Vital Signs Temp Pulse Resp BP 97.6 F L 114 H 18 126/62 H 06/15/24 10:28 06/15/24 10:28 06/15/24 10:28 06/15/24 10:28 Lab / Micro Data 06/15/24 11:10 06/15/24 11:10 Physical Exam Const oriented x3 General Appearance: cooperative, disheveled, appears older than stated age and other Pale and sallow Orientation / Consciousness: awake Exam Limitations: no limitations Nutritional Appearance: cachectic HEENT normocephalic Face and Sinus: normal facial exam External Ear: external ears normal Teeth and Gingiva: poor dentition Eyes PERRL and EOMs intact bilaterally; Negative for conjunctivae normal Eyes Narrative: Conjunctiva pale General Eye: normal appearance of both eyes Neck full ROM General: normal visual inspection Carotids: normal carotid upstroke Resp normal respiratory effort Effort and Inspection: able to speak in complete sentences Auscultation: clear to auscultation bilaterally Cardio regular rate and regular rhythm Palpation: normal PMI Rate: tachycardic Rhythm: regular rhythm GI GI Narrative: Colostomy in the right upper quadrant Palpation: soft, tender and guarding no CVA tenderness Extremity normal to inspection General Extremity: normal exam except as noted Skin Wounds: wounds noted Wound Narrative: Open laparotomy from March 02 never closed tendons open and visible Neuro oriented x3 Psych Appearance: grossly normal Speech: normal speech Thought Content: normal thought content Judgement: judgement good Debridement Note Debridement Note Wound debrided: Surgical wound mid abdomen laparotomy Type of Debridement: Excisional debridement Anesthesia Used: 5% Lidocaine Gel Depth: in the subcutaneous layer and to muscle Percentage of wound debrided: 100 Instrument Used: 3mm curette Tissue Removed: Fibrin undermining at 10 AM Severity: Fat Layer Exposed Amount of bleeding with debridement: Mild Bleeding Controlled with: Compression and gauze Patient tolerated procedure: Patient tolerated procedure well Post-Debridement Measurements and Additional Note: Post-Debridement Measurements/Treatment - Nurse 1 - General Ulcer Assessment Start: 06/08/24 09:47 Freq: Status: Active Protocol: [email or web address] Activity Type Activity Date Activity User E-sign Co-sign Detail Recorded Client Recorded Date Recorded By Document 06/08/24 09:47 DL [id number] 06/08/24 09:52 DL Document 06/15/24 10:28 DL [id number] 06/15/24 10:33 DL 06/08/24 06/15/24 09:47 10:28 - Today's Visit Information Type of service Follow-up Visit Follow-up Visit (Physician/RECRUITING ASSISTANT (Physician/RECRUITING ASSISTANT ) ) Arrival Mode Wheelchair Wheelchair Transfer Assistance Manual Manual Transfer Assist (Other) x1 x1 Patient Identification Verified (Name & Yes Yes ) Patient Requires Transmission-Based No No Precautions Vital Signs Temperature (97.8 F-99.1 F) 97.5 F L 97.6 F L Temperature Source Temporal Temporal Pulse Rate (60-100) 115 H 114 H Pulse Location Monitor Monitor Respiratory Rate (12-18) 16 18 Respiratory rate source Observation Observation Blood Pressure (90/60-120/80) 124/72 H 126/62 H Blood Pressure Mean (mm Hg) 89 83 Source Monitor Monitor History Since Last Visit- (Skip if this is Patient's initial visit) Have you changed medications since your No No last visit? Any new allergies or adverse reactions No No Had a fall/change in ADL's that may No No increase risk of falls Signs or symptoms of abuse and/or No No neglect since last visit Have you been in the hospital since your No No last visit? Has dressing in place as prescribed Yes Yes Has compression in place as prescribed N/A N/A Has offloadiing in place as prescribed N/A N/A Experienced any changes in pain level or No No management Pain Scale: 0-10 Numeric Is Patient Pain Free? Yes Yes WC - Nurse 1 - General Ulcer Measurement Start: 06/08/24 09:47 Freq: Status: Active Protocol: Activity Type Activity Date Activity User E-sign Co-sign Detail Recorded Client Recorded Date Recorded By Document 06/08/24 09:47 DL [id number] 06/08/24 09:52 DL Document 06/15/24 10:28 DL [id number] 06/15/24 10:33 DL 06/08/24 06/15/24 09:47 10:28 Wound Center Nurse 1 #1 Abdominal -Current Size (cm) - Length 1.5 0.7 -Current Size (cm) - Width 0.5 0.3 -Current Size (cm) - Depth 0.1 0.1 -Total Square Cm 0.75 0.21 -Photo Taken Yes -Exudate Amt Medium None Present -Exudate Type Serosanguineous -Wound Margin Distinct, Distinct, Outline Outline Attached Attached -Granulation Amt Large (67-100%) Large (67-100%) -Granulation Quality [place] -Necrosis Amt Small (1-33%) -Necrotic Tissue Type Adherent Slough -Structure Exposed N/A N/A -Texture (Harriett-wound Skin Appearance) Scarring Scarring -Moisture (Harriett-wound Skin Appearance) No Abnormality Maceration -Color (Harriett-wound Skin Appearance) No Abnormality No Abnormality -Temperature (Harriett-wound Skin No Abnormality No Abnormality Appearance) (Pt Warm) (Pt Warm) -Tenderness on Palpation (Harriett-wound No Skin Appearance) -Ulcer Cleansing Soap and Water Rinsed/ Irrigated with Saline -Foul Odor after Cleansing No No -Anesthetic Used 5% Lidocaine 5% Lidocaine Gel Gel WC - Nurse 2 - General Ulcer CM Notes Start: 06/08/24 09:47 Freq: Status: Active Protocol: Activity Type Activity Date Activity User E-sign Co-sign Detail Recorded Client Recorded Date Recorded By Document 06/08/24 09:56 [facility] [id number] 06/08/24 10:01 [facility] Document 06/15/24 10:40 [facility] [id number] 06/15/24 10:42 [facility] 06/08/24 06/15/24 09:56 10:40 Wound Center Nurse 2 #1 Abdominal -Time 09:56 10:40 -Correct Patient Yes Yes -Correct Side, Site, Position Yes Yes -Correct Procedure Yes Yes -Procedure Performed Yes Yes -Type of Procedure Debridement Debridement -Clinical Debridement Subcutaneous Subcutaneous -Tissue Removed Subcutaneous Subcutaneous -Post Debridement (cm) - Length 1.3 1 -Post Debridement (cm) - Width 0.7 0.3 -Post Debridement (cm) - Depth 0.1 0.1 -Total Square (Post) (cm) 0.91 0.3 -Area of Debridement (cm) - Length 1.3 1 -Area of Debridement (cm) - Width 0.7 0.3 -Total Square (Area) (cm) 0.91 0.3 -Tunneling No No -Undermining/Tunneling Yes No -Undermining/Tunneling Starts (O'clock 10 ) -Undermining/Tunneling Ends (O'clock) 10 -Maximum Distance (cm) 0.2 -Circular Undermining No No -Wound/Ulcer Outcome Not Healed Not Healed -Ulcer Cleansing Rinsed/ Rinsed/ Irrigated with Irrigated with Saline Saline -Foul Odor after Cleansing No No -Bioengineered Tissue No No -Bleeding Controlled with Pressure Pressure -Treatment Response Procedure Procedure Tolerated Well Tolerated Well -Debridement - Subq, 1st 20sq cm Yes Yes Pain Scale: 0-10 Numeric Is Patient Pain Free? Yes Yes WC - Nurse 3 - General Ulcer D/C NN Start: 06/08/24 09:47 Freq: Status: Active Protocol: Activity Type Activity Date Activity User E-sign Co-sign Detail Recorded Client Recorded Date Recorded By Document 06/08/24 10:02 [facility] [id number] 06/08/24 10:05 [facility] Document 06/15/24 10:42 [facility] [id number] 06/15/24 10:46 [facility] 06/08/24 06/15/24 10:02 10:42 Wound Care Center Nurse 3 #1 Abdominal -Ulcer Cleansing Rinsed/ Rinsed/ Irrigated with Irrigated with Saline Saline -Foul Odor after Cleansing No No -Primary Dressing Applied Promogran NonAdherent Contact Layer, Promogran -Primary Dressing Covered/Secured with Dry Gauze, Dry Gauze, Secured with Secured with Tape Tape -Promogran 1 1 Treatment Response Procedure Procedure Tolerated Well Tolerated Well Pain Scale: 0-10 Numeric Is Patient Pain Free? Yes Yes WC - Visit Discharge Discharge Condition Stable Stable Ambulatory Status Wheelchair Wheelchair Transportation Private Auto Private Auto Accompanied by caregiver caregiver Assessment/Plan Assessment/Plan (1) Nonhealing surgical wound: CODE(S): T81.89XA - Other complications of procedures, not elsewhere classified, initial encounter QUALIFIERS: Encounter type: subsequent encounter Qualified Code(s): T81.89XD - Other complications of procedures, not elsewhere classified, subsequent encounter (2) Dehiscence of laparotomy wound: CODE(S): T81.321A - Disruption or dehiscence of closure of internal operation (surgical) wound of abdominal wall muscle or fascia, initial encounter PLAN: Wash wound with antibacterial soap and water then apply Promogran to wound base moistened with Adaptic and absorbent gauze dressing over top. This will be a daily dressing Follow-up 1 week (3) Anemia: CODE(S): D64.9 - Anemia, unspecified QUALIFIERS: Anemia type: other cause Other causes of anemia: acute posthemorrhagic Qualified Code(s): D62 - Acute posthemorrhagic anemia PLAN: Lab work ordered CBC CMP prealbumin vitamin B12 and vitamin D CBC shows anemia and she is to continue taking her iron pills her kidneys and liver are all in within normal her prealbumin is just below normal her vitamin B12 is at a good level she is to continue taking B12 and her vitamin D was within normal limits also she needs to continue taking the vitamin D (4) Malnutrition: CODE(S): E46 - Unspecified protein-calorie malnutrition QUALIFIERS: Malnutrition type: protein-calorie malnutrition Protein-calorie malnutrition severity: moderate Qualified Code(s): E44.0 - Moderate protein-calorie malnutrition PLAN: Patient is encouraged to use Luis 60 g of protein per day (5) Cellulitis of abdominal wall: CODE(S): L03.311 - Cellulitis of abdominal wall
[2024-06-15 12:27] LABS: Absolute Lymphocyte Count 3.17 X10^3/uL (0.83-4.51); Absolute Neutrophil Count 4.3 X10^3/uL (2.0-7.7); Basophil# 0.09 X10^3/uL; Basophil% 1.1 % (0-1); Eosinophil# 0.12 X10^3/uL; Eosinophils% 1.5 % (0-5); Hemoglobin 12.5 g/dL (12.0-15.0); Lymphocyte # 3.17 X10^3/ul (0.83-4.51); Lymphocyte % 38.7 % (19-41); Mean Corp Hgb Conc 30.5 g/dL (32-36); Mean Corpuscular Hgb 27.1 pg (27.0-32.0); Mean Corpuscular Volume 88.7 fL (81-99); Mean Platelet Vol. 10.4 fl (6.2-12.0); Monocyte% 6.1 % (0-10); NRBC Flagged by Analyzer 0 % (0-5); Neutrophil % 52.4 % (47-70); Platelet Count 335 K/mm3 (150-450); RBC Distribution Width CV 17.1 % (11.6-14.6); RBC Distribution Width SD 55.3 fl (35.1-43.9); Red Blood Count 4.62 M/mm3 (4.2-5.4); White Blood Count 8.2 K/mm3 (4.4-11.0)
[2024-06-15 15:54] LABS: ALB/GLOB Ratio 1.2 RATIO (0.9-2.4); AST(SGOT) 27 U/L (<=31); Alanine Aminotransfer ALT/SGPT 30 U/L (<=34); Albumin, Serum 4.1 g/dL (3.4-4.8); Alkaline Phosphatase 142 U/L (35-104); Anion Gap 11 (5-15); BUN 39 mg/dL (4-19); BUN/Creat Ratio 55.2 RATIO (10-20); Calcium,Total 9.9 mg/dL (7.6-11.0); Carbon Dioxide 19.8 mmol/L (21.0-32.0); Chloride 107 mmol/L (98-108); EST Glomerular Filtration Rate 94 (>60); Ferritin 127 ng/mL (22-378); Globulin 3.6 g/dL (2.2-4.2); Glucose 107 mg/dL (70-99); Iron 82 ug/dL (50-170); Iron Binding Capacity,Total 330 ug/dL (250-450); Iron Binding Capacity,Unsat 248 ug/dL (228-428); Potassium 4.5 mmol/L (3.3-5.1); Protein, Total 7.6 g/dL (5.9-8.4); Sodium Level 138 mmol/L (133-145); Total Bilirubin 0.15 mg/dL (0.00-1.30)
--- NOTE | 2024-06-16 10:59 | WC ---
PHOTO 06/15/24 ABD
[2024-06-22 10:10] VITALS: BP 134/63; PULSE 101; RESP 16; TEMP 37
--- NOTE | 2024-06-22 12:01 | PN.PCM_ITS ---
History of Present Illness Date of Service: 06/22/24 Chief Complaint: Follow-up surgical abdominal wound nonhealing History of Wound: 68-year-old white female who in February developed a GI bleed that turned into ischemic colon. 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 Apparently the bleeding was so intense that they had to do a laparotomy which did not heal well and they left her open and were using a wound VAC at the hospital. Eventually the wound VAC got removed and never replaced like it was supposed to. At this point it is still open to tendon with positive depth looks clean no odor. Beefy red skin in the wound base. Bleeds easily with debridement. Currently taking Keflex daily 1000 mg and developed a urinary tract infection at the custodial where she was staying for few days and they had her on Macrobid and now she is to start tetracycline. Patient is now staying with a nurse at her house for home health care. She still extremely weak and anemic she appears still sallow in color. And does transfer self from wheelchair to bed and bath. Progress of Wound: Abdominal wound is a 95 of 100% healed. She has no undermining. Actually she is overgrowing skin so we used some nitrous sticks and then we will only use a gel and cover with Adaptic and then dry dressing. No sign of infection noted. 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 Vital Signs: Vital Signs Temp Pulse Resp BP O2 Del Method 98.6 F 101 H 16 134/63 H Room Air 06/22/24 10:10 06/22/24 10:10 06/22/24 10:10 06/22/24 10:10 06/22/24 10:10 Oxygen Delivery Method Room Air Lab / Micro Data Attestation: I reviewed the patient's lab results. 06/15/24 11:10 06/15/24 11:10 Physical Exam Const oriented x3 General Appearance: cooperative, disheveled, appears older than stated age and other Pale and sallow Orientation / Consciousness: awake Exam Limitations: no limitations Nutritional Appearance: cachectic HEENT normocephalic Face and Sinus: normal facial exam External Ear: external ears normal Teeth and Gingiva: poor dentition Eyes PERRL and EOMs intact bilaterally; Negative for conjunctivae normal Eyes Narrative: Conjunctiva pale General Eye: normal appearance of both eyes Neck full ROM General: normal visual inspection Carotids: normal carotid upstroke Resp normal respiratory effort Effort and Inspection: able to speak in complete sentences Auscultation: clear to auscultation bilaterally Cardio regular rate and regular rhythm Palpation: normal PMI Rate: tachycardic Rhythm: regular rhythm GI GI Narrative: Colostomy in the right upper quadrant Palpation: soft, tender and guarding no CVA tenderness Extremity normal to inspection General Extremity: normal exam except as noted Skin Wounds: wounds noted Wound Narrative: Open laparotomy from March 02 never closed tendons open and visible Neuro oriented x3 Psych Appearance: grossly normal Speech: normal speech Thought Content: normal thought content Judgement: judgement good Debridement Note Debridement Note Wound debrided: Surgical wound mid abdomen laparotomy Type of Debridement: Excisional debridement Anesthesia Used: 5% Lidocaine Gel Depth: in the subcutaneous layer and to muscle Percentage of wound debrided: 100 Instrument Used: 3mm curette Tissue Removed: Fibrin undermining at 12-1 Severity: Fat Layer Exposed Amount of bleeding with debridement: Mild Bleeding Controlled with: Compression and gauze Patient tolerated procedure: Patient tolerated procedure well Post-Debridement Measurements and Additional Note: Post-Debridement Measurements/Treatment - Nurse 1 - General Ulcer Assessment Start: 06/08/24 09:47 Freq: Status: Active Protocol: NASIMA Activity Type Activity Date Activity User E-sign Co-sign Detail Recorded Client Recorded Date Recorded By Document 06/08/24 09:47 DL [id number] 06/08/24 09:52 DL Document 06/15/24 10:28 DL [id number] 06/15/24 10:33 DL Document 06/22/24 10:10 [facility] [id number] 06/22/24 10:15 BM 06/08/24 06/15/24 06/22/24 09:47 10:28 10:10 - Today's Visit Information Type of service Follow-up Visit Follow-up Visit Follow-up Visit (Physician/GROUP SALES COORDINATOR (Physician/GROUP SALES COORDINATOR (Physician/GROUP SALES COORDINATOR ) ) ) Arrival Mode Wheelchair Wheelchair Wheelchair Transfer Assistance Manual Manual Other Transfer Assist (Other) x1 x1 2 Accompanied by caregiver Patient Identification Verified (Name & Yes Yes Yes ) Patient Requires Transmission-Based No No No Precautions Vital Signs Temperature (97.8 F-99.1 F) 97.5 F L 97.6 F L 98.6 F Temperature Source Temporal Temporal Temporal Pulse Rate (60-100) 115 H 114 H 101 H Pulse Location Monitor Monitor Monitor Respiratory Rate (12-18) 16 18 16 Respiratory rate source Observation Observation Observation Oxygen Delivery Method Room Air Blood Pressure (90/60-120/80) 124/72 H 126/62 H 134/63 H Blood Pressure Mean (mm Hg) 89 83 86 Source Monitor Monitor Monitor Position Sitting Blood Pressure Location Left Leg History Since Last Visit- (Skip if this is Patient's initial visit) Have you changed medications since your No No No last visit? Any new allergies or adverse reactions No No No Had a fall/change in ADL's that may No No No increase risk of falls Signs or symptoms of abuse and/or No No No neglect since last visit Have you been in the hospital since your No No No last visit? Has dressing in place as prescribed Yes Yes Yes Has compression in place as prescribed N/A N/A N/A Has offloadiing in place as prescribed N/A N/A N/A Experienced any changes in pain level or No No No management Left Footwear Regular Shoe Right Footwear Regular Shoe Pain Scale: 0-10 Numeric Is Patient Pain Free? Yes Yes Yes Teaching: Wound Center *Wound/Skin Impairment -Person Taught Patient,Primary Caregiver -Teaching Method Discussion -Response to teaching Verbalize Understanding Skin Care -Person Taught Patient,Primary Caregiver -Teaching Method Discussion -Response to teaching Verbalize Understanding Dressing Your Wound -Person Taught Patient,Primary Caregiver -Teaching Method Discussion -Response to teaching Verbalize Understanding WC - Nurse 1 - General Ulcer Measurement Start: 06/08/24 09:47 Freq: Status: Active Protocol: Activity Type Activity Date Activity User E-sign Co-sign Detail Recorded Client Recorded Date Recorded By Document 06/08/24 09:47 DL [id number] 06/08/24 09:52 DL Document 06/15/24 10:28 DL [id number] 06/15/24 10:33 DL Document 06/22/24 10:10 BMF [id number] 06/22/24 10:15 BMF [id number] 06/22/24 09:47 10:28 10:10 Wound Center Nurse 1 #1 Abdominal -Combined with other wound No -Current Size (cm) - Length 1.5 0.7 0.3 -Current Size (cm) - Width 0.5 0.3 0.2 -Current Size (cm) - Depth 0.1 0.1 0.1 -Total Square Cm 0.75 0.21 0.06 -Date of Last Picture (Recall this 06/22/24 field) -Photo Taken Yes Yes -Tunneling No -Undermining/Tunneling No -Circular Undermining No -Exudate Amt Medium None Present Medium -Exudate Type Serosanguineous Serosanguineous -Wound Margin Distinct, Distinct, Thickened Outline Outline Attached Attached -Granulation Amt Large (67-100%) Large (67-100%) Large (67-100%) -Granulation Quality [place] Red -Slough/Fibrin Yes -Necrosis Amt Small (1-33%) Small (1-33%) -Necrotic Tissue Type Adherent Slough Adherent Slough -Structure Exposed N/A N/A -Texture (Harriett-wound Skin Appearance) Scarring Scarring Assessed, Scarring -Moisture ([place]riett-wound Skin Appearance) No Abnormality Maceration Assessed -Color ([place]riett-wound Skin Appearance) No Abnormality No Abnormality Assessed -Temperature ([place]ri[place]-wound Skin No Abnormality No Abnormality No Abnormality Appearance) (Pt Warm) (Pt Warm) (Pt Warm) -Tenderness on Palpation ([place]riett-wound No No Skin Appearance) -Ulcer Cleansing Soap and Water Rinsed/ Rinsed/ Irrigated with Irrigated with Saline Saline -Foul Odor after Cleansing No No No -Anesthetic Used 5% Lidocaine 5% Lidocaine 5% Lidocaine Gel Gel Gel WC - Nurse 2 - General Ulcer CM Notes Start: 06/08/24 09:47 Freq: Status: Active Protocol: Activity Type Activity Date Activity User E-sign Co-sign Detail Recorded Client Recorded Date Recorded By Document 06/08/24 09:56 [facility] [id number] 06/08/24 10:01 BM Document 06/15/24 10:40 BMF [id number] 06/15/24 10:42 BM Document 06/22/24 10:25 [facility] [id number] 06/22/24 10:33 BMF 06/08/24 06/15/24 06/22/24 09:56 10:40 10:25 Wound Center Nurse 2 #1 Abdominal -Time 09:56 10:40 10:25 -Correct Patient Yes Yes Yes -Correct Side, Site, Position Yes Yes Yes -Correct Procedure Yes Yes Yes -Procedure Performed Yes Yes Yes -Type of Procedure Debridement Debridement Debridement -Clinical Debridement Subcutaneous Subcutaneous Subcutaneous -Tissue Removed Subcutaneous Subcutaneous Subcutaneous -Post Debridement (cm) - Length 1.3 1 0.7 -Post Debridement (cm) - Width 0.7 0.3 0.3 -Post Debridement (cm) - Depth 0.1 0.1 0.1 -Total Square (Post) (cm) 0.91 0.3 0.21 -Area of Debridement (cm) - Length 1.3 1 0.7 -Area of Debridement (cm) - Width 0.7 0.3 0.3 -Total Square (Area) (cm) 0.91 0.3 0.21 -Tunneling No No No -Undermining/Tunneling Yes No No -Undermining/Tunneling Starts (O'clock 10 ) -Undermining/Tunneling Ends (O'clock) 10 -Maximum Distance (cm) 0.2 -Circular Undermining No No No -Wound/Ulcer Outcome Not Healed Not Healed Not Healed -Ulcer Cleansing Rinsed/ Rinsed/ Rinsed/ Irrigated with Irrigated with Irrigated with Saline Saline Saline -Foul Odor after Cleansing No No No -Bioengineered Tissue No No No -Bleeding Controlled with Pressure Pressure Pressure,Silver Nitrate -Treatment Response Procedure Procedure Procedure Tolerated Well Tolerated Well Tolerated Well -Debridement - Subq, 1st 20sq cm Yes Yes Yes Pain Scale: 0-10 Numeric Is Patient Pain Free? Yes Yes Yes WC - Nurse 3 - General Ulcer D/C NN Start: 06/08/24 09:47 Freq: Status: Active Protocol: Activity Type Activity Date Activity User E-sign Co-sign Detail Recorded Client Recorded Date Recorded By Document 06/08/24 10:02 [facility] [id number] 06/08/24 10:05 [facility] Document 06/15/24 10:42 [facility] [id number] 06/15/24 10:46 BM Document 06/22/24 10:33 [facility] [id number] 06/22/24 10:33 [facility] 06/08/24 06/15/24 06/22/24 10:02 10:42 10:33 Wound Care Center Nurse 3 #1 Abdominal -Ulcer Cleansing Rinsed/ Rinsed/ Rinsed/ Irrigated with Irrigated with Irrigated with Saline Saline Saline -Foul Odor after Cleansing No No No -Primary Dressing Applied Promogran NonAdherent C Hydrogel, Contact Layer, NonAdherent Promogran Contact Layer -Primary Dressing Covered/Secured with Dry Gauze, Dry Gauze, Dry Gauze, Secured with Secured with Secured with Tape Tape Tape -Other Covering silicone tape -Hydrogel 1 -Promogran 1 1 Treatment Response Procedure Procedure Procedure Tolerated Well Tolerated Well Tolerated Well Pain Scale: 0-10 Numeric Is Patient Pain Free? Yes Yes Yes WC - Visit Discharge Discharge Condition Stable Stable Stable Ambulatory Status Wheelchair Wheelchair Wheelchair Transportation Private Auto Private Auto Private Auto Accompanied by caregiver caregiver caregiver Assessment/Plan Assessment/Plan (1) Dehiscence of laparotomy wound: CODE(S): T81.321A - Disruption or dehiscence of closure of internal operation (surgical) wound of abdominal wall muscle or fascia, initial encounter PLAN: Wash wound with antibacterial soap and water then apply collagen hydrogel and Adaptic over top with dry dressing daily. Follow-up 1 week (2) Nonhealing surgical wound: CODE(S): T81.89XA - Other complications of procedures, not elsewhere classified, initial encounter QUALIFIERS: Encounter type: subsequent encounter Qualified Code(s): T81.89XD - Other complications of procedures, not elsewhere classified, subsequent encounter (3) Anemia: CODE(S): D64.9 - Anemia, unspecified QUALIFIERS: Anemia type: other cause Other causes of anemia: a cute posthemorrhagic Qualified Code(s): D62 - Acute posthemorrhagic anemia PLAN: Lab work ordered CBC CMP prealbumin vitamin B12 and vitamin D CBC shows anemia and she is to continue taking her iron pills her kidneys and liver are all in within normal her prealbumin is just below normal her vitamin B12 is at a good level she is to continue taking B12 and her vitamin D was within normal limits also she needs to continue taking the vitamin D (4) Malnutrition: CODE(S): E46 - Unspecified protein-calorie malnutrition QUALIFIERS: Malnutrition type: protein-calorie malnutrition P rotein-calorie malnutrition severity: moderate Qualified Code(s): E44.0 - Moderate protein-calorie malnutrition PLAN: Patient is encouraged to use Luis 60 g of protein per day (5) Cellulitis of abdominal wall: CODE(S): L03.311 - Cellulitis of abdominal wall
--- NOTE | 2024-06-23 08:07 | WC ---
PHOTO 06/22/24 ABD
[2024-07-06 10:07] VITALS: BP 133/75; PULSE 96; RESP 18; TEMP 36.6
--- NOTE | 2024-07-06 10:37 | PN.PCM_ITS ---
History of Present Illness Date of Service: 07/06/24 Chief Complaint: Follow-up surgical abdominal wound nonhealing History of Wound: 68-year-old white female who in February developed a GI bleed that turned into ischemic colon. 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 Apparently the bleeding was so intense that they had to do a laparotomy which did not heal well and they left her open and were using a wound VAC at the hospital. Eventually the wound VAC got removed and never replaced like it was supposed to. At this point it is still open to tendon with positive depth looks clean no odor. Beefy red skin in the wound base. Bleeds easily with debridement. Currently taking Keflex daily 1000 mg and developed a [facility] tract [facility] at [facility] and they had her on Macrobid and now she is to start tetracycline. Patient is now staying with a nurse at her house for home health care. She still extremely weak and anemic she appears still sallow in color. And does transfer self from wheelchair to bed and bath. Progress of Wound: Abdominal wounds completely healed patient is happy caretakers happy we will be discharged from the wound center follow-up as needed Subjective Subjective There was some concern to get some leg discharge on it and I suggested maybe covering the wound or the scar tissue with sure prep and see if that helps that would be like a liquid tape for couple weeks and see if that will helps her out. Objective Data Objective Data All closed looks good no sign of infection patient can be discharged and follow- up as needed Vital Signs: Vital Signs Temp Pulse Resp BP O2 Del Method 97.8 F 96 18 133/75 H Room Air 07/06/24 10:07 07/06/24 10:07 07/06/24 10:07 07/06/24 10:07 06/22/24 10:10 Oxygen Delivery Method Room Air Lab / Micro Data 06/15/24 11:10 06/15/24 11:10 Physical Exam Const oriented x3 General Appearance: cooperative, disheveled, appears older than stated age and other Pale and sallow Orientation / Consciousness: awake Exam Limitations: no limitations Nutritional Appearance: cachectic HEENT normocephalic Face and Sinus: normal facial exam External Ear: external ears normal Teeth and Gingiva: poor dentition Eyes PERRL and EOMs intact bilaterally; Negative for conjunctivae normal Eyes Narrative: Conjunctiva pale General Eye: normal appearance of both eyes Neck full ROM General: normal visual inspection Carotids: normal carotid upstroke Resp normal respiratory effort Effort and Inspection: able to speak in complete sentences Auscultation: clear to auscultation bilaterally Cardio regular rate and regular rhythm Palpation: normal PMI Rate: tachycardic Rhythm: regular rhythm GI GI Narrative: Colostomy in the right upper quadrant Palpation: soft, tender and guarding no CVA tenderness Extremity normal to inspection General Extremity: normal exam except as noted Skin Wounds: wounds noted Wound Narrative: Open laparotomy from March 02 never closed tendons open and visible Neuro oriented x3 Psych Appearance: grossly normal Speech: normal speech Thought Content: normal thought content Judgement: judgement good Debridement Note Debridement Note No debridement was completed: No debridement was completed today Post-Debridement Measurements and Additional Note: Post-Debridement Measurements/Treatment - Nurse 1 - General Ulcer Assessment Start: 06/08/24 09:47 Freq: Status: Active Protocol: NASIMA Activity Type Activity Date Activity User E-sign Co-sign Detail Recorded Client Recorded Date Recorded By Document 06/08/24 09:47 DL [id number] 06/08/24 09:52 DL Document 06/15/24 10:28 DL [id number] 06/15/24 10:33 DL Document 06/22/24 10:10 BM [id number] 06/22/24 10:15 BMF Document 07/06/24 10:07 MT [id number] 07/06/24 10:14 MT 06/08/24 06/15/24 06/22/24 09:47 10:28 10:10 - Today's Visit Information Type of service Follow-up Visit Follow-up Visit Follow-up Visit (Physician/[employer] (Physician/[employer] (Physician/[employer] ) ) ) Arrival Mode Wheelchair Wheelchair Wheelchair Transfer Assistance Manual Manual Other Transfer Assist (Other) x1 x1 2 Accompanied by caregiver Patient Identification Verified (Name & Yes Yes Yes ) Patient Requires Transmission-Based No No No Precautions Safety Precautions Vital Signs Temperature (97.8 F-99.1 F) 97.5 F L 97.6 F L 98.6 F Temperature Source Temporal Temporal Temporal Pulse Rate (60-100) 115 H 114 H 101 H Pulse Location Monitor Monitor Monitor Respiratory Rate (12-18) 16 18 16 Respiratory rate source Observation Observation Observation Oxygen Delivery Method Room Air Blood Pressure (90/60-120/80) 124/72 H 126/62 H 134/63 H Blood Pressure Mean (mm Hg) 89 83 86 Source Monitor Monitor Monitor Position Sitting Blood Pressure Location Left Leg History Since Last Visit- (Skip if this is Patient's initial visit) Have you changed medications since your No No No last visit? Any new allergies or adverse reactions No No No Had a fall/change in ADL's that may No No No increase risk of falls Signs or symptoms of abuse and/or No No No neglect since last visit Have you been in the hospital since your No No No last visit? Has dressing in place as prescribed Yes Yes Yes Has compression in place as prescribed N/A N/A N/A Has offloadiing in place as prescribed N/A N/A N/A Experienced any changes in pain level or No No No management Left Footwear Regular Shoe Right Footwear Regular Shoe Pain Scale: 0-10 Numeric Is Patient Pain Free? Yes Yes Yes Teaching: Wound Center *Wound/Skin Impairment -Person Taught Patient,Primary Caregiver -Teaching Method Discussion -Response to teaching Verbalize Understanding Skin Care -Person Taught Patient,Primary Caregiver -Teaching Method Discussion -Response to teaching Verbalize Understanding Dressing Your Wound -Person Taught Patient,Primary Caregiver -Teaching Method Discussion -Response to teaching Verbalize Understanding 07/06/24 10:07 WC - Today's Visit Information Type of service Follow-up Visit (Physician/[employer] ) Arrival Mode Ambulatory, Wheelchair Transfer Assistance Transfer Assist (Other) Accompanied by Patient Identification Verified (Name & Yes ) Patient Requires Transmission-Based Precautions Safety Precautions Fall Prevention Vital Signs Temperature (97.8 F-99.1 F) 97.8 F Temperature Source Temporal Pulse Rate (60-100) 96 Pulse Location Monitor Respiratory Rate (12-18) 18 Respiratory rate source Observation Oxygen Delivery Method Blood Pressure (90/60-120/80) 133/75 H Blood Pressure Mean (mm Hg) 94 Source Monitor Position Sitting Blood Pressure Location Right Leg History Since Last Visit- (Skip if this is Patient's initial visit) Have you changed medications since your last visit? Any new allergies or adverse reactions Had a fall/change in ADL's that may increase risk of falls Signs or symptoms of abuse and/or neglect since last visit Have you been in the hospital since your last visit? Has dressing in place as prescribed Yes Has compression in place as prescribed Yes Has offloadiing in place as prescribed Yes Experienced any changes in pain level or Yes management Left Footwear Regular Shoe Right Footwear Regular Shoe Pain Scale: 0-10 Numeric Is Patient Pain Free? Yes Teaching: Wound Center *Wound/Skin Impairment -Person Taught -Teaching Method -Response to teaching Skin Care -Person Taught -Teaching Method -Response to teaching Dressing Your Wound -Person Taught -Teaching Method -Response to teaching - Nurse 1 - General Ulcer Measurement Start: 06/08/24 09:47 Freq: Status: Active Protocol: Activity Type Activity Date Activity User E-sign Co-sign Detail Recorded Client Recorded Date Recorded By Document 06/08/24 09:47 DL [id number] 06/08/24 09:52 DL Document 06/15/24 10:28 DL [id number] 06/15/24 10:33 DL Document 06/22/24 10:10 BMF [id number] 06/22/24 10:15 BMF Document 07/06/24 10:07 MT [id number] 07/06/24 10:14 MT 06/08/24 06/15/24 06/22/24 09:47 10:28 10:10 Wound Center Nurse 1 #1 Abdominal -Combined with other wound No -Current Size (cm) - Length 1.5 0.7 0.3 -Current Size (cm) - Width 0.5 0.3 0.2 -Current Size (cm) - Depth 0.1 0.1 0.1 -Total Square Cm 0.75 0.21 0.06 -Date of Last Picture (Recall this 06/22/24 field) -Photo Taken Yes Yes -Tunneling No -Undermining/Tunneling No -Circular Undermining No -Exudate Amt Medium None Present Medium -Exudate Type Serosanguineous Serosanguineous -Wound Margin Distinct, Distinct, Thickened Outline Outline Attached Attached -Granulation Amt Large (67-100%) Large (67-100%) Large (67-100%) -Granulation Quality [place] Red -Slough/Fibrin Yes -Necrosis Amt Small (1-33%) Small (1-33%) -Necrotic Tissue Type Adherent Slough Adherent Slough -Structure Exposed N/A N/A -Texture (Harriett-wound Skin Appearance) Scarring Scarring Assessed, Scarring -Moisture (Harriett-wound Skin Appearance) No Abnormality Maceration Assessed -Color (Harriett-wound Skin Appearance) No Abnormality No Abnormality Assessed -Temperature (Harriett-wound Skin No Abnormality No Abnormality No Abnormality Appearance) (Pt Warm) (Pt Warm) (Pt Warm) -Tenderness on Palpation (Harriett-wound No No Skin Appearance) -Ulcer Cleansing Soap and Water Rinsed/ Rinsed/ Irrigated with Irrigated with Saline Saline -Foul Odor after Cleansing No No No -Anesthetic Used 5% Lidocaine 5% Lidocaine 5% Lidocaine Gel Gel Gel Lower Limb Edema Present 07/06/24 10:07 Wound Center Nurse 1 #1 Abdominal -Combined with other wound -Current Size (cm) - Length 0.1 -Current Size (cm) - Width 0.1 -Current Size (cm) - Depth 0.1 -Total Square Cm 0.01 -Date of Last Picture (Recall this field) -Photo Taken -Tunneling No -Undermining/Tunneling No -Circular Undermining No -Exudate Amt None Present -Exudate Type -Wound Margin Flat & Intact -Granulation Amt Large (67-100%) -Granulation Quality Pale,[place] -Slough/Fibrin No -Necrosis Amt -Necrotic Tissue Type -Structure Exposed -Texture (Harriett-wound Skin Appearance) Assessed -Moisture (Harriett-wound Skin Appearance) Assessed -Color ([place]riett-wound Skin Appearance) Assessed -Temperature ([place]ett-wound Skin No Abnormality Appearance) (Pt Warm) -Tenderness on Palpation (Har[place]ett-wound No Skin Appearance) -Ulcer Cleansing Rinsed/ Irrigated with Saline -Foul Odor after Cleansing No -Anesthetic Used 5% Lidocaine Gel Lower Limb Edema Present NA WC - Nurse 2 - General Ulcer CM Notes Start: 06/08/24 09:47 Freq: Status: Active Protocol: Activity Type Activity Date Activity User E-sign Co-sign Detail Recorded Client Recorded Date Recorded By Document 06/08/24 09:56 BM [id number] 06/08/24 10:01 BM Document 06/15/24 10:40 BMF [id number] 06/15/24 10:42 BMF Document 06/22/24 10:25 BMF [id number] 06/22/24 10:33 BMF Document 07/06/24 10:19 BMF [id number] 07/06/24 10:22 BMF 06/08/24 06/15/24 06/22/24 09:56 10:40 10:25 Wound Center Nurse 2 #1 Abdominal -Time : 10:40 10:25 -Correct Patient Yes Yes Yes -Correct Side, Site, Position Yes Yes Yes -Correct Procedure Yes Yes Yes -Procedure Performed Yes Yes Yes -Type of Procedure Debridement Debridement Debridement -Clinical Debridement Subcutaneous Subcutaneous Subcutaneous -Tissue Removed Subcutaneous Subcutaneous Subcutaneous -Post Debridement (cm) - Length 1.3 1 0.7 -Post Debridement (cm) - Width 0.7 0.3 0.3 -Post Debridement (cm) - Depth 0.1 0.1 0.1 -Total Square (Post) (cm) 0.91 0.3 0.21 -Area of Debridement (cm) - Length 1.3 1 0.7 -Area of Debridement (cm) - Width 0.7 0.3 0.3 -Total Square (Area) (cm) 0.91 0.3 0.21 -Tunneling No No No -Undermining/Tunneling Yes No No -Undermining/Tunneling Starts (O'clock 10 ) -Undermining/Tunneling Ends (O'clock) 10 -Maximum Distance (cm) 0.2 -Circular Undermining No No No -Wound/Ulcer Outcome Not Healed Not Healed Not Healed -Ulcer Cleansing Rinsed/ Rinsed/ Rinsed/ Irrigated with Irrigated with Irrigated with Saline Saline Saline -Foul Odor after Cleansing No No No -Bioengineered Tissue No No No -Bleeding Controlled with Pressure Pressure Pressure,Silver Nitrate -Treatment Response Procedure Procedure Procedure Tolerated Well Tolerated Well Tolerated Well -Debridement - Subq, 1st 20sq cm Yes Yes Yes Pain Scale: 0-10 Numeric Is Patient Pain Free? Yes Yes Yes 07/06/24 10:19 Wound Center Nurse 2 #1 Abdominal -Time 10:19 -Correct Patient -Correct Side, Site, Position -Correct Procedure -Procedure Performed No -Type of Procedure -Clinical Debridement -Tissue Removed -Post Debridement (cm) - Length 0 -Post Debridement (cm) - Width 0 -Post Debridement (cm) - Depth 0 -Total Square (Post) (cm) 0 -Area of Debridement (cm) - Length 0 -Area of Debridement (cm) - Width 0 -Total Square (Area) (cm) 0 -Tunneling No -Undermining/Tunneling No -Undermining/Tunneling Starts (O'clock ) -Undermining/Tunneling Ends (O'clock) -Maximum Distance (cm) -Circular Undermining No -Wound/Ulcer Outcome Healed- Epithelialized -Ulcer Cleansing -Foul Odor after Cleansing -Bioengineered Tissue -Bleeding Controlled with NA -Treatment Response -Debridement - Subq, 1st 20sq cm Pain Scale: 0-10 Numeric Is Patient Pain Free? Yes - Nurse 3 - General Ulcer D/C NN Start: 06/08/24 09:47 Freq: Status: Active Protocol: Activity Type Activity Date Activity User E-sign Co-sign Detail Recorded Client Recorded Date Recorded By Document 06/08/24 10:02 [employer] [id number] 06/08/24 10:05 [employer] Document 06/15/24 10:42 [employer] [id number] 06/15/24 10:46 [employer] Document 06/22/24 10:33 [facility] [id number] 06/22/24 10:33 [facility] Document 07/06/24 10:24 [employer] [id number] 07/06/24 10:25 [facility] 06/08/24 06/15/24 06/22/24 10:02 10:42 10:33 Wound Care Center Nurse 3 #1 Abdominal -Ulcer Cleansing Rinsed/ Rinsed/ Rinsed/ Irrigated with Irrigated with Irrigated with Saline Saline Saline -Foul Odor after Cleansing No No No -Primary Dressing Applied Promogran NonAdherent C Hydrogel, Contact Layer, NonAdherent Promogran Contact Layer -Other Dressing -Primary Dressing Covered/Secured with Dry Gauze, Dry Gauze, Dry Gauze, Secured with Secured with Secured with Tape Tape Tape -Other Covering silicone tape -Hydrogel 1 -Promogran 1 1 Treatment Response Procedure Procedure Procedure Tolerated Well Tolerated Well Tolerated Well Pain Scale: 0-10 Numeric Is Patient Pain Free? Yes Yes Yes - Visit Discharge Discharge Condition Stable Stable Stable Ambulatory Status Wheelchair Wheelchair Wheelchair Transportation Private Auto Private Auto Private Auto Accompanied by caregiver caregiver caregiver 07/06/24 10:24 Wound Care Center Nurse 3 #1 Abdominal -Ulcer Cleansing -Foul Odor after Cleansing -Primary Dressing Applied -Other Dressing skin prep -Primary Dressing Covered/Secured with -Other Covering -Hydrogel -Promogran Treatment Response Pain Scale: 0-10 Numeric Is Patient Pain Free? Yes - Visit Discharge Discharge Condition Stable Ambulatory Status Wheelchair Transportation Private Auto Accompanied by caregiver Assessment/Plan Assessment/Plan (1) Dehiscence of laparotomy wound: CODE(S): T81.321A - Disruption or dehiscence of closure of internal operation (surgical) wound of abdominal wall muscle or fascia, initial encounter PLAN: Discharge from the wound center follow-up as needed (2) Nonhealing surgical wound: CODE(S): T81.89XA - Other complications of procedures, not elsewhere classified, initial encounter QUALIFIERS: Encounter type: subsequent encounter Qualified Code(s): T81.89XD - Other complications of procedures, not elsewhere classified, subsequent encounter (3) Anemia: CODE(S): D64.9 - Anemia, unspecified QUALIFIERS: Anemia type: other cause Other causes of anemia: a cute posthemorrhagic Qualified Code(s): D62 - Acute posthemorrhagic anemia (4) Malnutrition: CODE(S): E46 - Unspecified protein-calorie malnutrition QUALIFIERS: Malnutrition type: protein-calorie malnutrition P rotein-calorie malnutrition severity: moderate Qualified Code(s): E44.0 - Moderate protein-calorie malnutrition (5) Cellulitis of abdominal wall: CODE(S): L03.311 - Cellulitis of abdominal wall
== END 2024-07-06 23:59 | disposition home or self-care (01) ==
LOC: WC 10:00
PROVIDERS: PCP Family Medicine; Referring Provider Family Medicine; Visit Provider Nurse Practitioner
DX: T81.321A Disruption or dehiscence of closure of internal operation (surgical) wound of abdominal wall muscle or fascia, initial encounter (principal); Z93.3 Colostomy status; D64.9 Anemia, unspecified; Y83.8 Other surgical procedures as the cause of abnormal reaction of the patient, or of later complication, without mention of misadventure at the time of the procedure; E44.0 Moderate protein-calorie malnutrition; L03.311 Cellulitis of abdominal wall
CPT/HCPCS: 11042; 36415; 80053; 82728; 83540; 83550; 85025; 99213; G0463

== ENCOUNTER → 2024-07-06 | Outpatient (CLI) | payer MEDICARE, SELFPAY ==
--- NOTE | 2024-07-06 11:35 | WOUNDNOTE ---
POA had called this nurse just for another assessment of the peristomal skin. pt has had some issues with leaks off and on. POA states mostly due to thick stool pushing the appliance away from the skin. appliance just starting to loosen. removed the appliance with adhesive remover. there are 2 very small areas at the edges of the flange that are slightly irritated. the area directly around the stoma appears intact. the stoma is well budded and pink. the opening of the stoma does point downward on the inferior portion of the stoma. POA states that the stool will push under the appliance in this area or laterally. cleansed the skin with soap and water. patient has tried a variety of appliances and the one they prefer is a no brand appliance they found on [employer]. they did not like the [place] appliances. patient and POA prefer to continue with the current appliance since the peristomal skin appears healthy. discussed options of trying stool softeners to assist in avoiding too thick of stool. the POA states they had just started using Colace and it has seemed to help. they have also tried Senna. Pt has an appt with a GI Dr soon and plans to discuss this with him. Pt and POA appreciative of care and is aware to call if needs arise.
== END | disposition home or self-care (01) ==
LOC: ET 10:54
PROVIDERS: PCP Family Medicine
DX: Z43.3 Encounter for attention to colostomy (principal)
CPT/HCPCS: 99211; G0463

== ENCOUNTER → 2024-08-12 | Outpatient (CLI) | payer MEDICARE, SELFPAY ==
--- NOTE | 2024-08-12 14:19 | CT_ITS ---
PROCEDURE: SOFT TISSUE NECK WITH CONTRAST 08/12/2024 REASON FOR EXAM: LOCALIZED SWELLING, MASS AND LUMP, NECK TECHNIQUE: CT of the soft tissues of the neck from the orbits to the upper mediastinum with intravenous contrast. CONTRAST: Isovue-300 50 VOLUME: 100 mL One or more dose reduction techniques were used (e.g., Automated exposure control, adjustment of the mA and/or kV according to patient size, use of iterative reconstruction technique). RADIATION DOSE SUMMARY: CTDlvol: 18.5 mGy DLP: 531 mGycm FINDINGS: Airway: Unremarkable. Salivary glands: Unremarkable. Lymph nodes: No significant lymphadenopathy. Thyroid: Unremarkable. Vasculature: Prominent venous collaterals in the left chest wall and the left aspect of the neck. 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 No associated mass lesion is identified. Associated edema of the superior aspect of the left chest wall. Orbits: Unremarkable. Paranasal sinuses and mastoids: Mild chronic mucosal inflammatory changes of the left maxillary sinus. Lung apices: Unremarkable. Upper mediastinum: No other abnormality. Bones: Diffuse spondylosis. CT/Soft Tissue Neck WITH Contrast IMPRESSION: Prominent venous collaterals in the left chest wall and the left aspect of the neck. 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 No associated mass lesion is identified. Associated edema of the superior aspect of the left chest wall. Reading [facility]
[2024-08-12 14:57] LABS: CREATININE FINGERSTICK < 1.0 mg/dL (0.55-1.02)
== END | disposition home or self-care (01) ==
LOC: CT 14:15
PROVIDERS: PCP Family Medicine; Referring Provider Otolaryngology; Visit Provider Otolaryngology
DX: R22.1 Localized swelling, mass and lump, neck (principal)
CPT/HCPCS: 70491; Q9967; A4216

== ENCOUNTER → 2024-09-22 | Outpatient (CLI) | payer MEDICARE, SELFPAY ==
[2024-09-22 18:19] LABS: Hematocrit 40.1 % (37-47); Hemoglobin 13.1 g/dL (12.0-15.0); Immature Granulocytes Count 0.010 X10^3/uL (0.0-0.0); Mean Corp Hgb Conc 32.7 g/dL (32-36); Mean Corpuscular Volume 92.6 fL (81-99); Mean Platelet Vol. 9.6 fl (6.2-12.0); NRBC Flagged by Analyzer 0 % (0-5); Platelet Count 291 K/mm3 (150-450); RBC Distribution Width CV 14.2 % (11.6-14.6); RBC Distribution Width SD 48.4 fl (35.1-43.9); Red Blood Count 4.33 M/mm3 (4.2-5.4); White Blood Count 6.0 K/mm3 (4.4-11.0)
[2024-09-22 19:03] LABS: Cholesterol 176 mg/dL (<=200); FOLATES,SERUM (FOLIC ACID) 13.40 ng/mL (4.60-34.80); Low Density Lipoprotein Calc. 76 mg/dL; Triglycerides 111 mg/dL; Very Low Density Lipoprotein 22 mg/dL (5-40); cholesterol:hdl ratio screen 2.26
[2024-09-22 19:04] LABS: AST(SGOT) 35 U/L (<=31); Alanine Aminotransfer ALT/SGPT 44 U/L (<=34); Albumin, Serum 4.1 g/dL (3.4-4.8); Alkaline Phosphatase 132 U/L (35-104); Anion Gap 14 (5-15); BUN 31 mg/dL (4-19); BUN/Creat Ratio 42.1 RATIO (10-20); Calcium,Total 9.3 mg/dL (7.6-11.0); Carbon Dioxide 15.9 mmol/L (21.0-32.0); Chloride 108 mmol/L (98-108); Ferritin 93 ng/mL (22-378); Globulin 3.1 g/dL (2.2-4.2); Glucose 104 mg/dL (70-99); Iron 72 ug/dL (50-170); Magnesium 2.0 mg/dL (1.5-2.2); Potassium 4.6 mmol/L (3.3-5.1); Vitamin B12 452 pg/mL (180-914); Vitamin D,25 Hydroxy 27.8 ng/mL (30-100)
== END | disposition home or self-care (01) ==
LOC: MTLAB 16:17
PROVIDERS: PCP Family Medicine; Referring Provider Family Medicine
DX: E11.9 Type 2 diabetes mellitus without complications (principal); E55.9 Vitamin D deficiency, unspecified
CPT/HCPCS: 36415; 80053; 80061; 82306; 82607; 82728; 82746; 83036; 83540; 83735; 84425; 85025

== ENCOUNTER → 2025-01-09 | Outpatient (CLI) | payer MEDICARE, SELFPAY ==
[2025-01-09 18:14] LABS: AST(SGOT) 30 U/L (<=31); Alanine Aminotransfer ALT/SGPT 40 U/L (<=34); Albumin, Serum 4.3 g/dL (3.4-4.8); Alkaline Phosphatase 146 U/L (35-104); Anion Gap 12 (5-15); BUN 31 mg/dL (4-19); BUN/Creat Ratio 48.8 RATIO (10-20); Calcium,Total 9.3 mg/dL (7.6-11.0); Carbon Dioxide 19.2 mmol/L (21.0-32.0); Chloride 108 mmol/L (98-108); Globulin 3.2 g/dL (2.2-4.2); Glucose 110 mg/dL (70-99); Potassium 4.3 mmol/L (3.3-5.1)
== END | disposition home or self-care (01) ==
LOC: MTLAB 15:52
PROVIDERS: PCP Family Medicine; Referring Provider Family Medicine; Visit Provider Family Medicine
DX: R94.5 Abnormal results of liver function studies (principal)
CPT/HCPCS: 36415; 80053